=== PATIENT | female | born 1935 | race Caucasian/White ===

== ENCOUNTER → 2017-10-03 11:11 | Outpatient (CLI) | payer MEDICARE, BC, SELFPAY ==
--- NOTE | 2017-10-03 10:48 | DI.REPORT_ITS ---
SYMPTOM/DIAGNOSIS: B/L HIP PAIN BILATERAL HIPS: In the right hip there is moderate joint space narrowing. There is subchondral sclerosis and trae-articular spurring seen particularly in the femoral head. In the left hip there is mild joint space narrowing. The bones are intact. The bones do appear to be osteopenic. Mild degenerative changes are seen at the sacroiliac joints and in the lower lumbar spine. No acute fracture or dislocation is present. IMPRESSION: Degenerative changes of the hips bilaterally, right greater than left.
== END ==
PROVIDERS: PCP Internal Medicine; Visit Provider Physician Assistant
DX: M70.62 Trochanteric bursitis, left hip (principal); M25.552 Pain in left hip; M16.11 Unilateral primary osteoarthritis, right hip; M25.551 Pain in right hip
CPT/HCPCS: 73521; 20610; 99214; J1040

== ENCOUNTER → 2017-10-11 01:43 | Outpatient (CLI) | payer MEDICARE, BC, SELFPAY ==
[2017-10-11] MEDS: Omnipaque 300 MG/ML 10 ML BTL IJ (11:50)
[2017-10-11] MEDS: methylPREDNISolone ACETATE 80 MG/ML VIAL IM (11:50)
--- NOTE | 2017-10-11 11:51 | DI.REPORT_ITS ---
SYMPTOM/DIAGNOSIS: RT HIP INJECTION, PRIMARY OA RT HIP M16.11 RIGHT HIP: Fluoroscopy Time: 3 secs A needle is projected over the right hip in conjunction with a joint injection carried out by Dr. Allen. Please see the procedure report for further information.
--- NOTE | 2017-10-11 14:12 | PROC.BLANK_ITS ---
Date of Service: 10/11/17 Time of Service: 14:12 Note: OUTPATIENT PROCEDURE NOTE Date of Procedure: October 11, 2017 Procedure: Right Hip Injection under Fluoroscopy Indication for Procedure: Marilee has had persistent pain of the RIGHT hip and groin. Noninvasive measures have been tried. To serve as both diagnostic and therapeutic, an injection under fluoroscopy was recommended. I had discussed the risks of the procedure and the patient elected to proceed. Procedure Description: Thu was greeted in the flouroscopy room. The correct side was identified and the consent was reviewed with the patient and signed. The patient was then placed in the supine position on the fluoroscopy table. The RIGHT hip was then prepped with Chloraprep. The anterolateral injection starting point was identiifed by bony landmarks and fluoroscopy. The skin and soft tissue in the tract of the injection was anesthetized with 1% Lidocaine. A spinal needle was then inserted deep into the hip joint at the level of the lateral femoral neck under fluoroscopic guidance. A small amount of Omnipaque solution was injected to confirm intraarticular placement. Once confirmed, the hip was injected with 6cc of 0.5% Bupivicaine and 80mg of Depo- Medrol. A bandaid was placed on the injection site. The patient tolerated the procedure well and noted improvement in pre-injection pain.
== END ==
PROVIDERS: PCP Internal Medicine; Visit Provider Student in an Organized Health Care Education/Training Program
DX: M25.551 Pain in right hip (principal); M16.11 Unilateral primary osteoarthritis, right hip
CPT/HCPCS: 20610 ×3; 76000; 77002 ×3; J1040

== ENCOUNTER 2017-12-31 10:10 | Outpatient (CLI) | payer MEDICARE, BC, SELFPAY ==
--- NOTE | 2017-12-31 09:54 | DI.RAD_ITS ---
SYMPTOM/DIAGNOSIS: PRE RT ROBERTO, MAG MARKER RIGHT HIP: A single AP view was obtained. Comparison is made with 10/03/17. There is narrowing of the right hip joint space. There are subchondral cysts and osteophytes seen at the femoral head. Alignment of the hip is well maintained on this single frontal view. The soft tissues are unremarkable. IMPRESSION: Stable degenerative changes of the right hip.
== END 2017-12-31 10:30 ==
PROVIDERS: PCP Internal Medicine; Referring Provider Internal Medicine; Visit Provider Student in an Organized Health Care Education/Training Program
DX: M25.551 Pain in right hip (principal); M16.11 Unilateral primary osteoarthritis, right hip
CPT/HCPCS: 99213; 73501

== ENCOUNTER 2018-02-07 09:47 | Outpatient (CLI) | payer MEDICARE, BC, SELFPAY ==
[2018-02-07 11:48] LABS: HCT 42.9 % (36.0-46.0); HGB 14.7 g/dL (12.0-15.5); Mean Corp. HGB Concentration 34.3 g/dL (32.0-36.0); Mean Corpuscular Hemoglobin 31.5 pg (27.0-33.0); Mean Corpuscular Volume 92.1 fL (80-95); Mean Platelet Volume 10.6 fL (8.0-11.0); Platelet Count 185 x1000/uL (130-400); RBC 4.66 m/cumm (4.00-5.20); RBC Distribution Width 12.9 % (11.7-14.6); White Blood Cell Count 5.82 k/cumm (4.4-10.8)
[2018-02-07 11:51] LABS: Anion Gap 8.4 mmol/L (3-11); BUN 15 mg/dL (7-18); CO2 30.6 mmol/L (21.0-32.0); CREATININE 0.74 mg/dL (0.55-1.02); Calcium 9.4 mg/dL (8.5-10.1); Chloride 103 mmol/L (98-107); Glucose 71 mg/dL (70-100); Potassium 3.3 mmol/L (3.5-5.1); Sodium 142 mmol/L (136-145)
== END 2018-02-07 10:07 ==
PROVIDERS: PCP Internal Medicine; Visit Provider Student in an Organized Health Care Education/Training Program
DX: M25.551 Pain in right hip (principal); M16.11 Unilateral primary osteoarthritis, right hip; I10 Essential (primary) hypertension; Z01.818 Encounter for other preprocedural examination
CPT/HCPCS: 80048; 85027; 86850; 86900; 86901

== ENCOUNTER 2018-02-12 06:22 | Inpatient (IN) | payer MEDICARE, BC, SELFPAY ==
--- NOTE | 2018-02-07 14:50 | CMPROGNOTE_ITS ---
- If Service Date Differs Date of service: 02/07/18 Time of Service: 14:46 Care Management Progress Note ARMANDO met with Marilee for her preop appointment. Marilee states that she is having her (R) hip repaired on Sunday02/12/[address] Allen. Marilee resides in [place], she has two steps to enter her home, and then everything is one level. Marilee states that she has a FWW, Raised toilet, grab bars, and walking stick at this time. Marilee is independent at baseline, she drives, and manages ADL's. She is concerned about DC after surgery as she resides home alone. Marilee mentions a SNF or Swingbed prior to returning home. ARMANDO discusses Medicare payment and qualifying stays with Marilee which she understands. CM to meet with Dr. Allen in regards to the above.
[2018-02-12] VITALS (15 sets, daily range): BP systolic 91–148; BP diastolic 52–89; PULSE 37–89; RESP 11–18; TEMP 35.8–36.9; O2SAT 94–100
[2018-02-12] MEDS: Lactated Ringers 1,000 ML 80 ML IV ×3 (06:56→20:19)
[2018-02-12] MEDS: Celecoxib 200 MG CAP 400 MG PO (06:59)
[2018-02-12] MEDS: oxyCODONE-CR 10 MG TABCR PO (06:59)
[2018-02-12] MEDS: Acetaminophen 500 MG TAB 1000 MG PO ×3 (06:59→19:53)
[2018-02-12] MEDS: Bupivacaine 0.25% Pres-Free 30 ML VIAL (09:14)
[2018-02-12] MEDS: Ketorolac 30 MG/ML VIAL (09:14)
[2018-02-12] MEDS: Bupivacaine LIPOSOME/PF 133 MG/10 ML VIAL IJ (09:14)
[2018-02-12] MEDS: Normal Saline 50 ML (09:14)
--- NOTE | 2018-02-12 09:15 | DI.RAD_ITS ---
SYMPTOM/DIAGNOSIS: OSTEOARTHRITIS RIGHT HIP C-ARM FLUOROSCOPY: Fluoroscopy Time: 3.34 sec, 2.80 mGy. Fluoroscopy was provided in the OR for Dr. Allen. Hard copy image shows placement of a right hip prosthesis. Please see procedure note for details.
--- NOTE | 2018-02-12 10:02 | DI.RAD_ITS ---
SYMPTOM/DIAGNOSIS: S/P RT ROBERTO PORTABLE PELVIS: Patient is status post placement of a right hip prosthesis. The components appear well aligned.
--- NOTE | 2018-02-12 15:06 | PT.INNT ---
Date of service: 02/12/18 Time of Service: 15:06 PT Notes PHYSICAL THERAPY NOTE 02/12/18 PT consult received, chart reviewed, attempted to see patient for evaluation, pt lying in bed with emesis bag experiencing nausea. HOLD PT consult at this time, will see in am when nausea resolved. Pt has her own FWW in room, recommend nursing attempt edge of bed and standing this evening if patient is feeling better. Will complete PT Eval in am Marlys Phillips PT
--- NOTE | 2018-02-12 16:46 | W.PM.OP ---
Date of service: 02/12/18 Time of Service: 09:46 Operative Note DATE OF PROCEDURE: 02/12/18 PRE-OP DIAGNOSIS: Right Hip Osteoarthritis POST-OP DIAGNOSIS: same PROCEDURE: Right Anterior Total Hip Arthroplasty SURGEON: Thierry Allen HEALTH CONSULTANT: Gokul Brar ANESTHESIA: spinal ESTIMATED BLOOD LOSS: 300 PATHOLOGY: none sent COMPLICATIONS: None Patient was transported to: PACU Patient's condition: stable Implants: 1. Depuy [place] Acetabular Component, 54 mm 2. Depuy Acetabular Liner, 54 x 36 mm, +4 lateralized 3. Depuy Corail standard Collared femoral Stem, Size 15 4. Depuy Altrx Ceramic Femoral Head, Size 36+5 mm Indications: I have seen Marilee in clinic for symptoms of hip arthritis, confirmed with radiographic findings. She has exhausted nonoperative methods and was having significant limitations in daily function and desired better function and less pain. I discussed the technical details of a hip replacement. I explained the risks of the procedure to include, but not limited to, bleeding, infection, pain, stiffness, fracture, damage to nerves and vessels, damage to muscles and tendons, loosening, instability, leg length inequality, need for repeat procedure, blood clot and cardiopulmonary demise. Despite these risks, Marilee elected to proceed. Findings: There was significant signs of arthritis throughout the hip. Procedure Description: Marilee was greeted in the preoperative holding area where the correct side was identified and marked. The consent was reviewed with the patient and signed. The history and physical was updated. All questions were answered the was taken back to the operating room. A spinal anesthestic was then administered. The patient was placed into the supine position on the operating room table. The patient was then positioned onto the ARCH table. Both feet were wrapped with Webrill cotton wrap along with Coban. The feet were placed in specialized boots for the ARCH table, well seated within the boot and secured. SCDs were applied. The patient was then slid down onto a peroneal post and the nonoperative leg was secured in a leg calvert attached to the table. The operative side was placed into the ARCH table attachment and bed height and positioning was secured. A preoperative AP pelvis was obtained to serve as a reference for determining leg lengths. Prophylactic antibiotics in the form of cefazolin were administered. 1g of Tranxemic Acid was given intravenously within 30 minutes of incision. The right leg was then prepped with Chloraprep and draped in a standard fashion with a large shower-curtain type drape with Iodine impregnated skin protection. A timeout to confirm correct identity, side and site, procedure, allergies, anesthesia, and medical concerns was performed. An obliquely oriented incision was made starting lateral to the ASIS and running distal over the Tensor Fascia Gretchen (TFL) muscle belly toward the fibular head, approximately 10cm. The skin and soft tissue was dissected sharply, through Neo?s fascia, and to the fascia of the TFL. With the fascia and superior border of the IT band identified, the fascia was incised with a new knife just above any perforators from the IT band. The TFL muscle belly was bluntly dissected away from the fascia and moved laterally. The fat between TFL and rectus was identified to ensure the dissection was not within the TFL. Blunt dissection created space between abductors and the capsule and retractor was placed over the lateral femoral neck. The fibers of the rectus femoris tendon were identified and these were freed from the anterior capsule. A second cobra retractor was placed around the medial femoral neck. The TFL was further retracted laterally to show the deep fascia. Careful dissection through this layer identified three main crossing vessels of the lateral femoral circumflex. These were cauterized in multiple locations and then cut without any noticeable bleeding. The TFL was further released bluntly from the deep fascia to expose anterior hip capsule and fat the Jason orthopaedic retractor was then placed beneath the TFL and against sartorius and medial soft tissues to protect and retract the soft tissues. A T-capsulotomy was then performed starting at the superior lateral acetabulum and moving distally to the intertrochanteric ridge. These capsular flaps were tagged with a No. 1 Ethibond and elevated from within. The capsular flaps were released to the shoulder of the lateral neck and to the lesser trochanter to give excellent visualization of the proximal femur. A neck osteotomy was performed using an oscillating saw based on preoperative templates. This cut started in the shoulder and of the lateral neck and exited medially. The saw was at all times directed medially to avoid injury to the greater trochanter. 6cm of traction was applied to the leg and the osteotomy opened. The femoral head was removed with a corkscrew, making sure to protect the TFL on its exit. This was measured on the back table to determing the starting reamer size. Portions of the rectus obscuring visualization were minimally elevated off the superior acetabulum. An anterior retractor was placed over the anterior wall between capsule and labrum. A posterior retractor was placed similarly. This provided excellent visualization. The contents of the cotyloid fossa were removed with electrocautery and the labrum was removed with a knife. There was a notable floor osteophyte. Acetabular reaming began with a 49 mm reamer. This first reaming was directed anterior to posterior and medial to get down to the true floor. This was inspected and reamed until the true floor was reached. I then reamed sequentially up to a 53 mm reamer where good fit was obtained. The larger reamers were oriented based on anatomical reference of the anterior and lateral ovalle to ensure proper abduction and anteversion. Positioning and size was confirmed with the fluoroscopy. A 54 mm Depuy [place] acetabular component was selected. The acetabulum was reamed around the periphery with the selected acetabular size to prevent a rim fit. The deep tissues were irrigated. The acetabular component was then impacted in a position of about 40-45 degrees of abduction and 15-20 degrees of anteversion, using the patient?s anatomy as the ultimate landmark. Fluoroscopy was used to confirm this. There was excellent cardiac exercise physiologist of the acetabular component and the inserting handle was removed. The acetabular liner, Depuy 54 x 36 mm +4 lateralized polyethylene liner, was inserted and lined up with the tines of the acetabular component. There was no soft tissue interposition. The liner was then impacted into position and confirmed to be well-seated. A portion of the trae-articular cocktail was then injected around the acetabulum into the capsule and periosteum. This cocktail consisted of 50cc of 0.25% Bupivicaine and 20cc of Exparel, expanded to a total of 120cc. Traction was released from the femur. The leg was rotated to 120 degrees. Any remaining medial capsule was released until the lesser trochanter was easily palpable. A Hall retractor was placed medially. The lateral capsule was further released into the shoulder to allow access to the greater trochanter. A Hall retractor was placed over the greater trochanter which allowed the trochanter to flip in front of the capsule for excellent exposure. The leg was brought down into maximal extension and 20 degrees of adduction while ensuring there was no impingement on the acetabulum. Any remnant capsule within the trochanter was released. Piriformis and obturator externis were identified and protected. There was excellent access to the proximal femur. The lateral neck remnant was removed with a rongeur. A blunt canal probe was used to identify the canal and trajectory for later broaching. A box osteotome initiated the broach course. A small curved rasp and a curved curette were used to work laterally. Broaching then began with a size 8 Corail broach. This was inserted manually around the trochanter and into the canal before mallet blows. The broach was seated to a few millimeters below the cut level based on the neck cut and the preoperative template. Sequential broaching was continued until a tight fit was obtained with good rotational control of the femur. A trial standard neck was inserted along with a +5 trial head. The leg was brought out of extension and adduction and then reduced with traction and internal rotation. The leg was stable anteriorly in a position of 30 degrees of extension and 90 degrees of external rotation. Fluoroscopy was used to ensure there was no fracture and the stem was seated well. Leg lengths were checked with an AP pelvis and pelvic reference points. Once content with the desired offset and leg lengths, the leg was brought back into extension, external rotation and adduction. The periosteum and surrounding tissue was injected with remaining portion of the trae-articular cocktail. The proximal femur was irrigated as well as the deep tissues. The Depuy Corail standard collared stem, size 15, was then manually inserted into the proximal femur making sure to control rotation. It was then malleted into position with light blows, giving breaks to allow bone expansion and decrease risk of fracture. The selected Depuy in, size 36+5 mm, was then placed onto the clean and dry trunnion and secured with impaction onto the tapered fit. The leg was brought back out of extension and adduction and reduced with traction and internal rotation. Stability was confirmed with no shuck at 90 degrees of external rotation and 30 degrees of extension. No impingement through range of motion arc. Final x-ray images were obtained with fluoroscopy to confirm adequate positioning and no intraoperative fracture. The deep tissues were thoroughly irrigated with a pulse lavage. The second dose of TXA 1g was administered intravenously. The TFL fascia was finally closed with a No. 2 Stratafix, barbed suture. Deep tissues were then reapproximated with 0 Vicryl and a running 2-0 Vicryl. The skin was closed with a running 4-0 Monocryl in a subcuticular fashion. This was reinforced with skin glue. A Mepilex silver dressing was applied. At the end of the case, all counts were correct. Marilee was transferred to the hospital bed without difficulty and suffering no apparent complication. Marilee has a good prognosis. Physical therapy will start today and without restrictions, weight-bearing as tolerated. Aspirin 81mg BID will be used for DVT prophylaxis.
[2018-02-12] MEDS: Celecoxib 100 MG CAP 200 MG PO (19:53)
[2018-02-12] MEDS: Aspirin E.C. 325 MG TABEC 81 MG PO (20:07)
[2018-02-12] MEDS: traMADol 50 MG TAB PO (22:58)
[2018-02-12] MEDS: Normal Saline Flush 10 ML SYR IV (23:15)
[2018-02-12] MEDS: Ondansetron 4 MG/2 ML VIAL IVP (23:15)
[2018-02-13] VITALS (7 sets, daily range): BP systolic 111–131; BP diastolic 60–79; PULSE 69–89; RESP 16–18; TEMP 35.4–37.1; O2SAT 94–97
[2018-02-13 07:19] LABS: HCT 32.9 % (36.0-46.0); HGB 11.4 g/dL (12.0-15.5); Mean Corp. HGB Concentration 34.7 g/dL (32.0-36.0); Mean Corpuscular Hemoglobin 31.6 pg (27.0-33.0); Mean Corpuscular Volume 91.1 fL (80-95); Mean Platelet Volume 11.2 fL (8.0-11.0); Platelet Count 158 x1000/uL (130-400); RBC 3.61 m/cumm (4.00-5.20); RBC Distribution Width 12.4 % (11.7-14.6); White Blood Cell Count 8.41 k/cumm (4.4-10.8)
[2018-02-13 07:27] LABS: BUN 18 mg/dL (7-18); CREATININE 0.78 mg/dL (0.55-1.02); Calcium 8.5 mg/dL (8.5-10.1); Chloride 104 mmol/L (98-107); Glucose 118 mg/dL (70-100); Potassium 3.5 mmol/L (3.5-5.1); Sodium 140 mmol/L (136-145)
[2018-02-13] MEDS: Pantoprazole 40 MG TABCR PO (08:19)
[2018-02-13] MEDS: Chlorthalidone 25 MG TAB 12.5 MG PO (08:19)
[2018-02-13] MEDS: Multivitamin w/Minerals TAB 1 TAB PO (08:19)
[2018-02-13] MEDS: Celecoxib 100 MG CAP 200 MG PO (08:19)
[2018-02-13] MEDS: Aspirin E.C. 81 MG TABEC PO ×2 (08:20→19:50)
[2018-02-13] MEDS: Ondansetron 4 MG/2 ML VIAL IVP (08:20)
[2018-02-13] MEDS: traMADol 50 MG TAB PO (08:20)
[2018-02-13] MEDS: Acetaminophen 500 MG TAB 1000 MG PO ×3 (08:20→19:49)
[2018-02-13] MEDS: Ascorbic Acid 500 MG TAB PO (08:20)
--- NOTE | 2018-02-13 08:22 | PT.INIE ---
Date of service: 02/13/18 Time of Service: 08:16 PT Notes Inpatient Physical Therapy Evaluation Date: 02/13/18 Referring Doctor: Thierry Allen PT Orders: PT CONSULT: s/p anterior right right ROBERTO Precautions: WBAT RLE Patient Profile/Admitting Diagnosis: Patient is an 82-year-old female as/P right total hip arthroplasty by Dr. Allen 02/12/2018 PMHX: Osteoarthritis right hip, right total knee arthroplasty, hypertension, cataract extraction Social History/Home Situation: Lives alone in a house, 2 steps to enter, single level and side. Baseline mobility independent gait without assistive device and independent with ADLs. Equipment Owned/DME: Walking stick, FWW, raised toilet seat, grab bars, seat maker Subjective: Patient lying in bed, states she still feels nauseous this morning, spoke with RN she is going to provide her Zofran, patient's blood pressure stable. RN cleared for patient to mobilize this morning with PT. Patient very anxious and worried about her surgery, worried about how she is going to manage at home, I discussed with patient recommending OT consult to address concerns regarding ADLs and self-care and home setting. Patient agreeable to PT consult with encouragement to mobilize. Objective: Mental Status: A and O x3 Pain: Complains of pain right anterior quad, not rated, RN notified. Bed Mobility/Transfers: Supine to sit: HOB 30 degrees, independent Sit to stand: SBA with FWW Bed to chair: SBA with FWW, cues for hand placement and positioning Chair to bed: CGA with FWW, patient unable to sit in chair for breakfast due to onset of dizziness, nausea after gait training. Transfer back to bed. RN notified. Sit to supine: HOB flat, independent Gait: CGA with FWW 50 feet x2, WBAT RLE, slow steady step through gait pattern with decreased stride length, decreased tu, cues to stand closer to front wheel walker and use upper body support to unload lower extremities. Patient mobilizing well with gait, continues to have anxiety during gait session about pain and how she is going to manage at home, patient provided with positive encouragement regarding mobility. Therex: Initiated ankle pumps x20 reps, will continue to instruct in ROBERTO home exercise program over the next few sessions. Balance: Static Sitting: Normal Dynamic Sitting: Normal Static Standing: Fair Dynamic Standing: Fair Special Tests: Mobility Limitations Standardized Measure [facility] AM-PAC 6 clicks Basic Mobility Inpatient Short Form: Raw Score: 18 standardized Score: 43.63 CMS Score: 46.58% CMS Modifier: CK Informed Consent/Education: Patient instructed in purpose of PT consult and plan of care. Assessment: Patient is an 82-year-old female as/P right total hip arthroplasty by Dr. Allen 02/12/2018 in setting of Osteoarthritis right hip, right total knee arthroplasty. Patient presents with clinical signs and symptoms consistent with postop right ROBERTO, as demonstrated by the following impairment level findings: Pain right hip and lower extremity, weakness right hip musculature, decreased strength with standing transfers and gait mobility requiring use of FWW for stability to prevent falls, decreased static and dynamic standing balance. Patient session this morning limited by dizziness and nausea upon completion of gait training, patient unable to sit in chair for breakfast, but was able to mobilize in hallway with FWW. Patient has a lot of anxiety regarding her surgery and postoperative recovery, which may be interfering in her ability to focus on mobility. Patient will benefit from OT consult for instruction in ADLs and assist with strategizing self-care in home setting. Patient may benefit from referral to long-term care facility for rehab, if she feels unsafe to return to home alone. Impairments are contributing to the following functional limitations: AMPAC score CMS Score: 46.58% Patient is assessed as a Moderate [id number] complexity based on the following: History: See above Examination: See above Presentation: Evolving Decision Making: AMPAC score CMS Score: 46.58% Goals: Goals X1 week 1. Supine-Sit: Independent 2. Sit-Supine: Independent 3. Sit-Stand: Supervision with FW W 4. Stand-Sit: Supervision 5. Bed-Chair: SBA with FW W 6. Chair-Bed: SBA with FW W 7. Gait: SBA with FW W 100 feet x2, WBAT RLE 8. Stairs: Up/down 2 steps with railing, SBA, WBAT RLE 9. Independent with home exercise program for ROBERTO Plan of Care/Treatment Plan: 1-2x/day, 7 days/week x 1 week. Plan of care has been reviewed with the COPPER PLATER providing the service under Physical Therapy direction. Initiate Physical Therapy intervention for strengthening, bed mobility, transfers, gait, stairs, balance training, use of assistive device. DISCHARGE RECOMMENDATIONS: Long-term care facility for rehab TREATMENT CODE/TIME: 32 minutes IE 8:15 AM G Codes in the area mobility of walking and moving around: current status [id number] -CK; projected status GP [id number]. Discharge status (if discharging) GP [id number] CK based on AMPA score CMS Score: 46.58% Marlys Phillips PT Disclaimer: This note was created using Fnbox voice recognition software. It was reviewed for major content. However, there may be multiple small discrepancies and errors due to the voice recognition aspects of the software.
[2018-02-13] MEDS: Normal Saline Flush 10 ML SYR IV ×3 (08:23→19:50)
--- NOTE | 2018-02-13 08:25 | IN_ITS ---
Date of service: 02/13/18 Time of Service: 08:16 PT Notes Inpatient Physical Therapy Evaluation Date: 02/13/18 Referring Doctor: Thierry Allen PT Orders: PT CONSULT: s/p anterior right right ROBERTO Precautions: WBAT RLE Patient Profile/Admitting Diagnosis: Patient is an 82-year-old female as/P right total hip arthroplasty by Dr. Allen 02/12/2018 PMHX: Osteoarthritis right hip, right total knee arthroplasty, hypertension, cataract extraction Social History/Home Situation: Lives alone in a house, 2 steps to enter, single level and side. Baseline mobility independent gait without assistive device and independent with ADLs. Equipment Owned/DME: Walking stick, FWW, raised toilet seat, grab bars, data analyst report writer Subjective: Patient lying in bed, states she still feels nauseous this morning, spoke with RN she is going to provide her Zofran, patient's blood pressure stable. RN cleared for patient to mobilize this morning with PT. Patient very anxious and worried about her surgery, worried about how she is going to manage at home, I discussed with patient recommending OT consult to address concerns regarding ADLs and self-care and home setting. Patient agreeable to PT consult with encouragement to mobilize. Objective: Mental Status: A and O x3 Pain: Complains of pain right anterior quad, not rated, RN notified. Bed Mobility/Transfers: Supine to sit: HOB 30 degrees, independent Sit to stand: SBA with FWW Bed to chair: SBA with FWW, cues for hand placement and positioning Chair to bed: CGA with FWW, patient unable to sit in chair for breakfast due to onset of dizziness, nausea after gait training. Transfer back to bed. RN notified. Sit to supine: HOB flat, independent Gait: CGA with FWW 50 feet x2, WBAT RLE, slow steady step through gait pattern with decreased stride length, decreased tu, cues to stand closer to front wheel walker and use upper body support to unload lower extremities. Patient mobilizing well with gait, continues to have anxiety during gait session about pain and how she is going to manage at home, patient provided with positive encouragement regarding mobility. Therex: Initiated ankle pumps x20 reps, will continue to instruct in ROBERTO home exercise program over the next few sessions. Balance: Static Sitting: Normal Dynamic Sitting: Normal Static Standing: Fair Dynamic Standing: Fair Special Tests: Mobility Limitations Standardized Measure [facility] AM-PAC 6 clicks Basic Mobility Inpatient Short Form: Raw Score: 18 standardized Score: 43.63 CMS Score: 46.58% CMS Modifier: CK Informed Consent/Education: Patient instructed in purpose of PT consult and plan of care. Assessment: Patient is an 82-year-old female as/P right total hip arthroplasty by Dr. Allen 02/12/2018 in setting of Osteoarthritis right hip, right total knee arthroplasty. Patient presents with clinical signs and symptoms consistent with postop right ROBERTO, as demonstrated by the following impairment level findings: Pain right hip and lower extremity, weakness right hip musculature, decreased strength with standing transfers and gait mobility requiring use of FWW for stability to prevent falls, decreased static and dynamic standing balance. Patient session this morning limited by dizziness and nausea upon completion of gait training, patient unable to sit in chair for breakfast, but was able to mobilize in hallway with FWW. Patient has a lot of anxiety regarding her surgery and postoperative recovery, which may be interfering in her ability to focus on mobility. Patient will benefit from OT consult for instruction in ADLs and assist with strategizing self-care in home setting. Patient may benefit from referral to long-term care facility for rehab, if she feels unsafe to return to home alone. Impairments are contributing to the following functional limitations: AMPAC score CMS Score: 46.58% Patient is assessed as a Moderate 36733 complexity based on the following: History: See above Examination: See above Presentation: Evolving Decision Making: AMPAC score CMS Score: 46.58% Goals: Goals X1 week 1. Supine-Sit: Independent 2. Sit-Supine: Independent 3. Sit-Stand: Supervision with FW W 4. Stand-Sit: Supervision 5. Bed-Chair: SBA with FW W 6. Chair-Bed: SBA with FW W 7. Gait: SBA with FW W 100 feet x2, WBAT RLE 8. Stairs: Up/down 2 steps with railing, SBA, WBAT RLE 9. Independent with home exercise program for ROBERTO Plan of Care/Treatment Plan: 1-2x/day, 7 days/week x 1 week. Plan of care has been reviewed with the BROTHEL KEEPER providing the service under Physical Therapy direction. Initiate Physical Therapy intervention for strengthening, bed mobility, transfers, gait, stairs, balance training, use of assistive device. DISCHARGE RECOMMENDATIONS: Long-term care facility for rehab TREATMENT CODE/TIME: 32 minutes IE 8:15 AM G Codes in the area mobility of walking and moving around: current status [id number] -CK; projected status GP [id number]. Discharge status (if discharging) GP [id number] CK based on AMPA score CMS Score: 46.58% Marlys Phillips PT Disclaimer: This note was created using [employer] voice recognition software. It was reviewed for major content. However, there may be multiple small discrepancies and errors due to the voice recognition aspects of the software.
--- NOTE | 2018-02-13 11:24 | PHARADMIT ---
Admission Pharmacy Clinical Review Right Anterior Total Hip Arthroplasty Code Status Full Code Current Weight 61.9 kg Renally Cleared and Narrow Therapeutic Index Meds crcl ~55ml/min QTc Value / Action Taken 430 BP Control, Fever 121/72 afebrile Electrolytes reviewed ok DVT Prophylaxis not yet Opiate Usage / Scheduled Bowel Regimen Ordered prn/prn Plt/SCr for Heparin / Enoxaparin 158/0.78 INR for Warfarin na H/H stable, WBC/Bands 11.4/32.9 wbc 8.41 Antibiotic appropriateness na Cultures and Sensitivities na Surgical ABX d/c within 24 hr yes DM control / Insulin Dosing na Heart Failure (Check EF%) (CORINNA's, B-Block, Diuretics) na IV to PO Switch iv pain meds, Home Meds Reviewed Home Meds Not Ordered naproxen sodium [Aleve] 220 mg PO PRN Comments
--- NOTE | 2018-02-13 12:52 | PDOC.CMIN ---
- If Service Date Differs Date of service: 02/13/18 Time of Service: 12:52 Care Management Initial Assess REASON FOR HOSPITALIZATION:: (R) Hip DJD PAST MEDICAL HISTORY/PAST SURGICAL HISTORY:: CVA, Chronic low back pain, Essential Hypertension, Hyperlipidemia, Imbalance, [facility], Raynaud's syndrome PREVIOUS FUNCTIONAL STATUS/SOCIAL/FAMILY SUPPORTS:: Marilee resides alone in [place]. She states that at baseline she has no assistance at home. Marilee has no family locally, she states that she depends on her neighbors for assistance at times, however states that she does not want to be a burden on them. CURRENT FUNCTIONAL STATUS:: Currently Marilee is sitting up in her chair. She is stating that she is nervous and feeling nauseous today, which staff mine warfare officer is aware of. ADVANCE DIRECTIVES:: On file - Noe Roberto - agent, Joshua Crain - alternate agent Has patient been provided with information about the portal?: Yes Did the patient sign up for the portal?: No CODE STATUS:: Full Code INSURANCE COVERAGE / FINANCIAL ISSUES:: Medicare, BCBS CURRENT HOME/COMMUNITY SERVICES/EQUIPMENT:: Currently Marilee has a FWW, Raised toilet, grab bars, and walking stick at home. She has no services in the community. PRIMARY CARE PHYSICIAN:: Dr. Ivan POTENTIAL DISCHARGE NEEDS:: F/U appointment with Dr. Allen. ? SNF placement - depending on mobility - may be able to return home. ? home health services PATIENT/FAMILY EDUCATION NEEDS:: Review DC instructions, any limitations, and ongoing DC planning discussion. Discuss 'Ask Me Three' ANTICIPATED BARRIERS TO DISCHARGE:: None identified at this time. TRANSPORTATION:: Via RCT or with neighbor PLAN:: Marilee will ? DC to SNF vs. home with home health services. She will F/U with Dr. Allen and plan of care as prescribed. RCT or neighbor to transport when ready.
--- NOTE | 2018-02-13 13:04 | W.PM.PROGNOT ---
Date of Service Date of service: 02/13/18 Time of Service: 13:04 Assessment and Plan (1) Primary osteoarthritis of right hip: Current visit: No Status: Acute Marilee is status post right hip replacement. Unfortunately, she is having issues with nausea and dizziness. At this point, this is going to limit her ability to discharge. We will continue with regular medications except that I will change her Celebrex to ketorolac hopefully to limit any GI upset. In addition, I will start her on some Valium for pain control and also for antianxiety as anxiety seems to be a large component of her current complaints. We will continue with physical therapy and continue with the aspirin for DVT prophylaxis. Subjective Interval history since last seen: Hertha status post right hip replacement. Unfortunately, she has had significant amounts of nausea with some subjective dizziness. Her vital signs been stable. Her hemoglobin is stable as well. She does express some anxiety and some pain about the right hip although she is taking no pain medications and does not describe as being sharp. She has been able to ambulate although does so cautiously. She denies numbness or tingling. She denies fevers or chills. Exam Narrative Exam Narrative: No acute distress. Alert oriented x3. Evaluation of the right hip shows no drainage on the dressings. There is some mild amount of ecchymosis seen medial to the incision. No significant swelling or hematoma. She tolerates internal and external rotation without any significant difficulty. Leg lengths appear equal. Objective Objective Clinical Data: Abnormal lab results 02/13/18 02/13/18 Range/Units 06:25 06:25 RBC 3.61 L (4.00-5.20) m/cumm Hgb 11.4 L (12.0-15.5) g/dL Hct 32.9 L (36.0-46.0) % MPV 11.2 H (8.0-11.0) fL Glucose 118 H (70-100) mg/dL Vital Signs Temperature 36.7 C 02/13/18 11:40 Temperature Source Tympanic 02/13/18 11:40 Pulse 80 02/13/18 11:40 Pulse Rhythm Regular 02/13/18 08:10 Respiratory Rate 16 02/13/18 11:40 Respiratory Effort Non-Labored 02/13/18 08:10 Respiratory Depth Normal 02/13/18 08:10 Respiratory Pattern Normal 02/13/18 08:10 Blood Pressure 131/79 02/13/18 11:40 Pulse Oximetry 97 02/13/18 11:40 Respiratory End-tidal CO2 32 02/12/18 10:50 Oxygen Delivery Method Room Air 02/13/18 11:40 Oxygen Flow Rate 0 02/13/18 11:40 Pain Level 2 02/13/18 11:40 Comment 02/13/18 11:40 Intake & Output 02/12/18 02/13/18 02/13/18 23:59 11:59 23:59 Intake Total 487.416 / 691.294 6212 / 1552 Output Total 200 / 200 650 / 650 Balance 287.416 / 287.416 902 / 902 Intake: IV 247.416 / 247.416 712 / 712 Oral 240 / 240 840 / 840 Output: Urine 200 / 200 650 / 650 Other: Urine Color Dark Mary Yellow Urine Appearance Clear Clear Urine Odor Normal Comment no redness or pain noted at the uretha, draining properly Voiding Methods Toilet Laboratory Results WBC 8.41 k/cumm (4.4-10.8) 02/13/18 06:25 RBC 3.61 m/cumm (4.00-5.20) L 02/13/18 06:25 Hgb 11.4 g/dL (12.0-15.5) L 02/13/18 06:25 Hct 32.9 % (36.0-46.0) L 02/13/18 06:25 MCV 91.1 fL (80-95) 02/13/18 06:25 MCH 31.6 pg (27.0-33.0) 02/13/18 06:25 MCHC 34.7 g/dL (32.0-36.0) 02/13/18 06:25 RDW 12.4 % (11.7-14.6) 02/13/18 06:25 Plt Count 158 x1000/uL (130-400) 02/13/18 06:25 MPV 11.2 fL (8.0-11.0) H 02/13/18 06:25 Sodium 140 mmol/L (136-145) 02/13/18 06:25 Potassium 3.5 mmol/L (3.5-5.1) 02/13/18 06:25 Chloride 104 mmol/L (98-107) 02/13/18 06:25 Carbon Dioxide 31.0 mmol/L (21.0-32.0) 02/13/18 06:25 Anion Gap 5.0 mmol/L (3-11) 02/13/18 06:25 BUN 18 mg/dL (7-18) 02/13/18 06:25 Creatinine 0.78 mg/dL (0.55-1.02) 02/13/18 06:25 Estimated GFR/1.73 m2 >= 60.00 (mL/min/1.73m2) 02/13/18 06:25 Glucose 118 mg/dL (70-100) H 02/13/18 06:25 Calcium 8.5 mg/dL (8.5-10.1) 02/13/18 06:25
--- NOTE | 2018-02-13 13:12 | INITIAL_ITS ---
- If Service Date Differs Date of service: 02/13/18 Time of Service: 12:52 Care Management Initial Assess REASON FOR HOSPITALIZATION:: (R) Hip DJD PAST MEDICAL HISTORY/PAST SURGICAL HISTORY:: CVA, Chronic low back pain, Essential Hypertension, Hyperlipidemia, Imbalance, [facility], Raynaud's syndrome PREVIOUS FUNCTIONAL STATUS/SOCIAL/FAMILY SUPPORTS:: Marilee resides alone in [place]. She states that at baseline she has no assistance at home. Marilee has no family locally, she states that she depends on her neighbors for assistance at times, however states that she does not want to be a burden on them. CURRENT FUNCTIONAL STATUS:: Currently Marilee is sitting up in her chair. She is stating that she is nervous and feeling nauseous today, which staff genetic counselor is aware of. ADVANCE DIRECTIVES:: On file - Noe Roberto - agent, Joshua Crain - alternate agent Has patient been provided with information about the portal?: Yes Did the patient sign up for the portal?: No CODE STATUS:: Full Code INSURANCE COVERAGE / FINANCIAL ISSUES:: Medicare, BCBS CURRENT HOME/COMMUNITY SERVICES/EQUIPMENT:: Currently Marilee has a FWW, Raised toilet, grab bars, and walking stick at home. She has no services in the community. PRIMARY CARE PHYSICIAN:: Dr. Ivan POTENTIAL DISCHARGE NEEDS:: F/U appointment with Dr. Allen. ? SNF placement - depending on mobility - may be able to return home. ? home health services PATIENT/FAMILY EDUCATION NEEDS:: Review DC instructions, any limitations, and ongoing DC planning discussion. Discuss 'Ask Me Three' ANTICIPATED BARRIERS TO DISCHARGE:: None identified at this time. TRANSPORTATION:: Via RCT or with neighbor PLAN:: Marilee will ? DC to SNF vs. home with home health services. She will F/U with Dr. Allen and plan of care as prescribed. RCT or neighbor to transport when ready.
--- NOTE | 2018-02-13 13:12 | PT.INTREAT ---
Date of service: 02/13/18 Time of Service: 13:12 PT Notes Inpatient Physical Therapy Treatment Note Date: 02/13/18 PRECAUTIONS: WBAT on R SUBJECTIVE: Marilee states that she is feeling better than she was this morning. She continues to express anxiety regarding pain and level of function. OBJECTIVE: PAIN: Patient c/o R hip pain with ther ex BED MOBILITY/TRANSFERS Supine-sit: I with HOB flat Sit-stand: S Stand-sit: S GAIT Assistive Device: FWW Weight bearing: WBAT on R Assist: SBA Distance: 60' x2 Deviation: Step-though pattern, c/o dizziness and nausea THEREX: Patient completed a LE strengthening and stabilization program, as per flow sheet. ASSESSMENT: Patient tolerated session well, although gait distance was limited due to onset of dizziness and nausea, likely related to aniety. She would benefit from continued gait training and strengthening for improved mobility. PLAN: Continue with PT's POC TREATMENT CODE/TIME: 25 minutes; TA/TP
[2018-02-13] MEDS: Ketorolac 15 MG/ML VIAL IVP ×2 (14:23→19:50)
[2018-02-13] MEDS: Diazepam 2 MG TAB PO (20:58)
[2018-02-14] MEDS: Normal Saline Flush 10 ML SYR IV ×2 (03:11→08:14)
[2018-02-14] MEDS: Ketorolac 15 MG/ML VIAL IVP ×2 (03:11→08:14)
[2018-02-14 03:19] VITALS: BP 131/81; PULSE 82; RESP 16; TEMP 36; O2SAT 96
[2018-02-14 08:00] VITALS: BP 120/78; PULSE 79; RESP 18; TEMP 36.3; O2SAT 96
[2018-02-14] MEDS: Acetaminophen 500 MG TAB 1000 MG PO (08:14)
[2018-02-14] MEDS: Ascorbic Acid 500 MG TAB PO (08:14)
[2018-02-14] MEDS: Pantoprazole 40 MG TABCR PO (08:14)
[2018-02-14] MEDS: Chlorthalidone 25 MG TAB 12.5 MG PO (08:14)
[2018-02-14] MEDS: Aspirin E.C. 81 MG TABEC PO (08:14)
[2018-02-14] MEDS: Multivitamin w/Minerals TAB 1 TAB PO (08:14)
--- NOTE | 2018-02-14 09:32 | PT.INTREAT ---
Date of service: 02/14/18 Time of Service: 09:32 PT Notes Inpatient Physical Therapy Treatment Note Date: 02/14/18 PRECAUTIONS: WBAT on R SUBJECTIVE: Marilee states that she continues to have pain in the R hip with walking, however, she does state that she is feeling better and hasn't had any nausea or dizziness today. OBJECTIVE: PAIN: Patient c/o R hip discomfort with gait training and ther ex BED MOBILITY/TRANSFERS Sit-stand: I Stand-sit: I GAIT Assistive Device: FWW Weight bearing: WBAT on R Assist: S Distance: 125' x2 Deviation: Step-through THEREX: Patient completed a LE strengthening program, as per flow sheet. STAIRS: Up/down 3x4 and 2x6 using B rails and a step-to pattern with supervision. ASSESSMENT: Patient tolerated session well with minimal c/o discomfort in R hip with gait training and ther ex. Patient tolerated a progression in gait distance with FWW support and a step-through gait pattern. PLAN: Continue with PT's POC TREATMENT CODE/TIME: 30 minutes; TA/TP
--- NOTE | 2018-02-14 11:05 | DSE_ITS ---
Date of service: 02/14/18 Time of Service: 11:05 DS: Diagnosis Discharge Diagnosis (1) Primary osteoarthritis of right hip: Status: Acute Discharge Plan Disposition Patient Disposition: HOME W/HOME HEALTH SERVICE Condition: Good Discharge Details Reason For Visit: (R) HIP DJD Admit Date/Time: 02/12/18 06:22 Admit Provider: Thierry Allen Attending Provider: Thierry Allen Primary Care Provider: Katina Ivan Hospital Course Hospital Course: Patient was admitted to the medical/surgical floor following the procedure. It was tolerated well without any notable medical, surgical, or anesthetic complications. Mobilization began postoperatively. The peterson catheter was removed and voiding spontaneously. Vitals were stable. She did have some complaints of nausea and dizziness. He did not seem to be related to vital signs normal orthostatics. It did resolve with time more than anything else. Physical therapy worked with the patient and was cleared for discharge home. No acute medical issues. Home Meds and New Rx's Prescriptions: New aspirin 81 mg Tablet,Delayed Release (Dr/Ec) 81 mg PO BID Qty: 80 RF: 0 diazepam 2 mg Tablet 2 mg PO TID PRN PRNQty: 7 RF: 0 docusate sodium [Colace] 100 mg Capsule 100 mg PO BID PRN PRN (Reason: Constipation) Qty: 0 RF: 0 celecoxib 200 mg capsule 200 mg PO BID PRN (Reason: pain) Qty: 60 RF: 1 pantoprazole 40 mg tablet,delayed release (DR/EC) 40 mg PO DAILY Qty: 30 RF: 0 acetaminophen 500 mg capsule 1,000 mg PO Q8H PRN (Reason: pain) Qty: 90 RF: 0 Continued ascorbic acid (vitamin C) [Vitamin C] 500 MG capsule, extended release 500 mg PO DAILY RF: 0 hxnzuoxmmgyg-Za-cosy-minerals [Women's Daily Multivitamin] 1 EACH tablet 1 ea PO DAILY RF: 0 chlorthalidone 25 MG tablet 12.5 mg PO DAILY Qty: 45 RF: 3 Varicella-Zoster Ge/As01b/Pf [Shingrix Vial Kit] 50 MCG INJ 50 mcg IM ONCE Qty: 1 RF: 1 Discontinued naproxen sodium [Aleve] 220 MG capsule 220 mg PO PRN RF: 0 Discharge Instructions Additional Instructions: Dr. Allen?s Total Hip Discharge Instructions Activity: The most important activity is to walk. You should try to take short walks a few times a day. You have no restrictions on movement or positioning, but do not try to force what you do. You will find some stiffness and weakness with hip flexion (lifting your knee). Do not try to strengthen this too early, continue to practice walking and stairs and this will come. - Outpatient physical therapy can be helpful to help return you to a normal gait and improve your flexibility and strength. This can start around 2 weeks. For some patients, it?s not necessary. Usually this is determined at the time of discharge or at the first post-operative visit. - You should wear the BENJI hose on both legs for 4 weeks. Dressing: Keep the surgical dressing in place for at least one week. After the first week it may be removed and replace with light gauze and tape or nothing. It may get wet after 3 days but avoid soaking the dressing. If it gets wet, just lightly pat dry. It is important to always keep some gauze between skin folds, especially when you are sitting. Spend some time with the wound exposed when you are lying flat as the incision does wrinkle onto itself. Medications: - You should take Tylenol and an anti-inflammatory Celebrex as your primary pain control medications. If the Celebrex is not covered by your insurance provider you may use Aleve, 1-2 tablets, twice daily - You have been prescribed a stronger pain medication Diazepam (Valium) for breakthrough pain and spasms. This is not a true narcotic pain medication and does work with some anxiety and seem to work well for your pain and spasms. It may cause drowsiness. Take as needed as prescribed. - You have also been prescribed a stomach acid reduction agent Pantoprozole to help reduce stomach acid and reflux. - You will be taking aspirin 81mg twice a day for DVT prevention unless instructed otherwise. - If you have constipation you should take Colace or Miralax (both wbiu-ydh-gegqgyg). It takes most people 3-4 days to have a bowel movement. Follow-up: 2 weeks 1. Encounter Date and Reason I certify that NAZARIO VILLALBA was seen by Thierry Allen on 02/14/18 and that I had a tjqy-ti-[id number] encounter with this patient that meets the physician face to face encounter requirements. 2. Clinical Findings Supporting Skilled Need and Homebound Status I certify that home health services are medically necessary, include either intermittent [place] [facility] and/or physical/speech therapy, and that this patient is homebound in that absences from the home require considerable and taxing effort and are infrequent or of short duration, or are attributable to the need to receive medical care. [X] (a) Attached documentation from encounter provides clinical findings supporting skilled need and homebound status (including what assistance patient requires to leave the home). The encounter with the patient was in whole, or in part, for the following medical condition, which is the primary reason for home health care: (R) HIP DJD Usp: Physical Therapy: Nazario would benefit from home physical and director private music therapy agency [facility] to address her current limitations and weaknesses. She is status post hip replacement on the right side from an anterior approach. She has no precautions. She does have significant weakness and gait abnormalities. Physical therapy should focus on ambulation, using assistive devices as needed, strengthening. Range of motion should be secondary. Occupational therapy may assist with activities of daily living as she lives by herself independently. Speech Therapy: Homebound: Nazario is unable to leave her home unassisted. She has significant weakness and gait abnormalities which preclude her from leaving her home. 3. Certification and Authentication I certify that I composed the above information based on my clinical judgement relating to this patient's medical condition and, if applicable, clinical findings communicated to me by the NPP or inpatient physician who performed the Home Health Referral. All further orders will be obtained through Dr. Thierry Allen Referrals: Thierry Allen MD [ [facility] STAFF PHYSICIAN] - Activity:: Activity as Tolerated Equipment/Supplies:: No Equipment Needed Diet:: As Tolerated Discharge Orders Discharge Orders: Discharge Order (Routine); Ordered 02/14/18 Ordered By: Thierry Allen DS: Data Vitals/I&O Vitals and I&O: Vital Signs Temperature 36.3 C L 02/14/18 08:00 Temperature Source Tympanic 02/14/18 08:00 Pulse 79 02/14/18 08:00 Pulse Rhythm Regular 02/14/18 08:00 Respiratory Rate 18 02/14/18 08:00 Respiratory Effort Non-Labored 02/14/18 08:00 Respiratory Depth Normal 02/14/18 08:00 Respiratory Pattern Normal 02/14/18 08:00 Blood Pressure 120/78 02/14/18 08:00 Pulse Oximetry 96 02/14/18 08:00 Respiratory End-tidal CO2 32 02/12/18 10:50 Oxygen Delivery Method Room Air 02/14/18 08:00 Oxygen Flow Rate 0 02/14/18 08:00 Pain Level 4 02/14/18 08:14 Comment 02/13/18 11:40 Intake & Output 02/13/18 02/13/18 02/14/18 11:59 23:59 11:59 Intake Total 1665.333 / 1678.333 13 / 1678.333 990 / 990 Output Total 650 / 650 Balance 1015.333 / 1028.333 13 / 1028.333 990 / 990 Intake: IV 825.333 / 838.333 13 / 838.333 20 / 20 Oral 840 / 840 970 / 970 Output: Urine 650 / 650 Other: Urine Color Yellow Urine Appearance Clear Clear Urine Odor Normal Comment pt reports voiding in toilet x 1 void x 1 Voiding Methods Toilet Toilet Toilet PFSH Family History Mother Parkinsons Father No problems noted. Sister Marfans syndrome Extraction of cataract Replacement of total knee joint Family History Mother Parkinsons Father No problems noted. Sister Marfans syndrome Social History housing: house lives independently: Yes number of children: 0 current occupational status: retired well-balanced diet: daily or most days Smoking/Tobacco Use Status: Never alcohol intake: never substance use type: does not use working smoke detector in home: Yes fire extinguisher in home: Yes carbon monox detector in home: Yes Surgical History Extraction of cataract Replacement of total knee joint Social History housing: house lives independently: Yes number of children: 0 current occupational status: retired well-balanced diet: daily or most days Smoking/Tobacco Use Status: Never alcohol intake: never substance use type: does not use working smoke detector in home: Yes fire extinguisher in home: Yes carbon monox detector in home: Yes
--- NOTE | 2018-02-14 11:17 | PT.INDS ---
Date of service: 02/14/18 Time of Service: 11:18 PT Notes Inpatient Physical Therapy Discharge Summary Date: 02/14/18 Dates of Service: 02/12/18-02/14/18 SUBJECTIVE: NT OBJECTIVE: 02/12/18-02/14/18 Bed Mobility/Transfers: Supine to sit: independent Sit to stand: independent with FWW Stand-sit: independent Sit to supine: independent Gait: supervision with FWW 125ft x2 WBAT RLE Stairs: up/down 5 steps with bilateral railings supervision Balance: Static Sitting: Normal Dynamic Sitting: Normal Static Standing: Fair Dynamic Standing: Fair. Assessment: Patient is an 82-year-old female as/P right total hip arthroplasty by Dr. Allen 02/12/2018 in setting of Osteoarthritis right hip, right total knee arthroplasty. Patient was seen for 3 PT visits. Progressed from SBA standing transfers to independent, from CGA gait with FWW 50ftx2 to supervision gait with FWW [id number], able to ascend/descend 5 steps with railings, supervision. Pt is being discharged to home today, discharge PT services. Goals: Goals X1 week 1. Supine-Sit: Independent 2. Sit-Supine: Independent 3. Sit-Stand: Supervision with FW W 4. Stand-Sit: Supervision 5. Bed-Chair: SBA with FW W 6. Chair-Bed: SBA with FW W 7. Gait: SBA with FW W 100 feet x2, WBAT RLE 8. Stairs: Up/down 2 steps with railing, SBA, WBAT RLE 9. Independent with home exercise program for ROBERTO Pt met goals # 1, 2, 3, 4, 5, 6, 7, 8, 9 DISCHARGE RECOMMENDATIONS: home G Codes in the area mobility of walking and moving around:projected status GP [id number]. Discharge status (if discharging) GP [id number] CK Marlys Phillips PT
--- NOTE | 2018-02-14 11:23 | INDS_ITS ---
Date of service: 02/14/18 Time of Service: 11:18 PT Notes Inpatient Physical Therapy Discharge Summary Date: 02/14/18 Dates of Service: 02/12/18-02/14/18 SUBJECTIVE: NT OBJECTIVE: 02/12/18-02/14/18 Bed Mobility/Transfers: Supine to sit: independent Sit to stand: independent with FWW Stand-sit: independent Sit to supine: independent Gait: supervision with FWW 125ft x2 WBAT RLE Stairs: up/down 5 steps with bilateral railings supervision Balance: Static Sitting: Normal Dynamic Sitting: Normal Static Standing: Fair Dynamic Standing: Fair. Assessment: Patient is an 82-year-old female as/P right total hip arthroplasty by Dr. Allen 02/12/2018 in setting of Osteoarthritis right hip, right total knee arthroplasty. Patient was seen for 3 PT visits. Progressed from SBA standing transfers to independent, from CGA gait with FWW 50ftx2 to supervision gait with FWW [id number], able to ascend/descend 5 steps with railings, supervision. Pt is being discharged to home today, discharge PT services. Goals: Goals X1 week 1. Supine-Sit: Independent 2. Sit-Supine: Independent 3. Sit-Stand: Supervision with FW W 4. Stand-Sit: Supervision 5. Bed-Chair: SBA with FW W 6. Chair-Bed: SBA with FW W 7. Gait: SBA with FW W 100 feet x2, WBAT RLE 8. Stairs: Up/down 2 steps with railing, SBA, WBAT RLE 9. Independent with home exercise program for ROBERTO Pt met goals # 1, 2, 3, 4, 5, 6, 7, 8, 9 DISCHARGE RECOMMENDATIONS: home G Codes in the area mobility of walking and moving around:projected status GP [id number]. Discharge status (if discharging) GP [id number] CK Marlys Phillips PT
--- NOTE | 2018-02-14 11:43 | PDOC.CMDIS ---
- If Service Date Differs Date of service: 02/14/18 Time of Service: 11:49 LACE Index Scoring Tool - Questions: Length of Stay (in days): 2 Acuity (Admit via E.D.?): No Comorbidities: Cerebrovascular Disease E.D. Visits: 0 - Answers: Total Score: 3 Risk of Readmission: Low Risk Care Management Discharge Reason for Hospitalization: (R) Hip DJD Discharge Plan: Marilee will return home today with home health PT services. CM met with Marilee this morning, whom states that her neighbor Dior will transport her home today. CM contacted [facility] in regards to referral and left message on referral line. CM also contacted [facility] in [facility] and faxed insurance cards for their records. Patient/Family Education Needs: Review DC instructions, any limitations, and discuss Ask Me Three Services Needed at Discharge: Home Health Care Services (PT)
[2018-02-14] MEDS: traMADol 50 MG TAB PO (12:01)
--- NOTE | 2018-02-14 12:34 | CMDISCH_ITS ---
- If Service Date Differs Date of service: 02/14/18 Time of Service: 11:49 LACE Index Scoring Tool - Questions: Length of Stay (in days): 2 Acuity (Admit via E.D.?): No Comorbidities: Cerebrovascular Disease E.D. Visits: 0 - Answers: Total Score: 3 Risk of Readmission: Low Risk Care Management Discharge Reason for Hospitalization: (R) Hip DJD Discharge Plan: Marilee will return home today with home health PT services. CM met with Marilee this morning, whom states that her neighbor Dior will transport her home today. CM contacted [facility] in regards to referral and left message on referral line. CM also contacted [facility] in [facility] and faxe d insurance cards for their records. Patient/Family Education Needs: Review DC instructions, any limitations, and discuss Ask Me Three Services Needed at Discharge: Home Health Care Services (PT)
--- NOTE | 2018-02-14 14:54 | CHAPLAIN ---
When I visited Marilee yesterday she remembered me from her previous admission when she had her knee replaced. She is feeling okay after this hip replacement surgery, but said she is waiting for more pain medication. She seems to be comfortable being here and anticipates what to expect following this surgery.
== END 2018-02-14 13:00 | disposition home health service (06) | DRG 470 ==
LOC: PDS 07:49 → MS 09:57
PROVIDERS: Admitting Provider Student in an Organized Health Care Education/Training Program; PCP Internal Medicine; Visit Provider Student in an Organized Health Care Education/Training Program
PROC: 0SR904A Replacement of Right Hip Joint with Ceramic on Polyethylene Synthetic Substitute, Uncemented, Open Approach (ICD-10-PCS; CPT 27130; principal; 2018-02-12 07:45)
DX: M16.11 Unilateral primary osteoarthritis, right hip (principal); Z96.641 Presence of right artificial hip joint; R11.0 Nausea; R42 Dizziness and giddiness; I10 Essential (primary) hypertension
CPT/HCPCS: 27130; 36415; 80048; 85027; 97110; 97162; 97530; NC; 72170; 73501; J0690; J1100; J1885; J2370; J2405

== ENCOUNTER 2018-03-06 11:17 | Outpatient (CLI) | payer MEDICARE, BC, SELFPAY ==
--- NOTE | 2018-03-06 10:58 | DI.RAD_ITS ---
SYMPTOMS/DIAGNOSIS: S/P RT TKA RIGHT HIP AND PELVIS: Comparison is made with [id number]. There has been no change in the alignment of the right hip prosthesis. Mild to moderate degenerative changes are again noted in the left hip.
== END 2018-03-06 11:37 ==
PROVIDERS: PCP Internal Medicine; Visit Provider Student in an Organized Health Care Education/Training Program
DX: M25.551 Pain in right hip (principal); Z96.641 Presence of right artificial hip joint; Z47.1 Aftercare following joint replacement surgery; M16.12 Unilateral primary osteoarthritis, left hip
CPT/HCPCS: 73502

== ENCOUNTER → 2018-03-27 12:47 | Outpatient (BNVA) | payer MEDICARE, BC, SELFPAY | PROVIDERS: PCP Internal Medicine; Referring Provider Internal Medicine; Visit Provider Student in an Organized Health Care Education/Training Program | DX: Z47.1 Aftercare following joint replacement surgery (principal); Z96.641 Presence of right artificial hip joint ==

== ENCOUNTER → 2018-05-08 13:02 | Outpatient (BNVA) | payer MEDICARE, BC, SELFPAY | PROVIDERS: PCP Internal Medicine; Referring Provider Internal Medicine; Visit Provider Student in an Organized Health Care Education/Training Program | DX: Z47.1 Aftercare following joint replacement surgery (principal); Z96.641 Presence of right artificial hip joint; M16.11 Unilateral primary osteoarthritis, right hip ==

== ENCOUNTER 2018-07-12 10:17 | Outpatient (CLI) | payer MEDICARE, BC, SELFPAY ==
--- NOTE | 2018-07-12 10:15 | DI.RAD_ITS ---
SYMPTOMS/DIAGNOSIS: RIGHT HIP PAIN RIGHT HIP AND PELVIS: Two views were obtained and show total hip joint replacement in position. Components appear well seated. No other bony abnormality seen. Note is made of moderate DJD of the left hip and there is an incidental calcified uterine fibroid in the pelvic midline.
== END 2018-07-12 10:37 ==
PROVIDERS: PCP Internal Medicine; Referring Provider Internal Medicine; Visit Provider Student in an Organized Health Care Education/Training Program
DX: M25.551 Pain in right hip (principal); Z96.641 Presence of right artificial hip joint; M16.12 Unilateral primary osteoarthritis, left hip; Z47.1 Aftercare following joint replacement surgery; I10 Essential (primary) hypertension
CPT/HCPCS: 36415; 85027; 85652; 99213; 73502; 86140

== ENCOUNTER 2018-07-12 10:48 | Outpatient (CLI) | payer MEDICARE, BC, SELFPAY ==
[2018-07-12 11:40] LABS: HCT 40.8 % (36.0-46.0); HGB 13.6 g/dL (12.0-15.5); Mean Corp. HGB Concentration 33.3 g/dL (32.0-36.0); Mean Corpuscular Hemoglobin 30.6 pg (27.0-33.0); Mean Corpuscular Volume 91.9 fL (80-95); Platelet Count 196 x1000/uL (130-400); RBC 4.44 m/cumm (4.00-5.20); RBC Distribution Width 13.5 % (11.7-14.6); White Blood Cell Count 7.39 k/cumm (4.4-10.8)
[2018-07-12 12:10] LABS: C-Reactive Protein 0.55 mg/dL (0.0-0.3)
[2018-07-12 13:15] LABS: ESR 23 MM/HR (0-30)
== END 2018-07-12 11:08 ==
PROVIDERS: PCP Internal Medicine; Visit Provider Student in an Organized Health Care Education/Training Program
DX: M25.551 Pain in right hip (principal); Z96.641 Presence of right artificial hip joint
CPT/HCPCS: 36415; 85027; 85652; 86140

== ENCOUNTER 2018-07-25 01:28 | Outpatient (CLI) | payer MEDICARE, BC, SELFPAY ==
--- NOTE | 2018-07-25 10:45 | DI.RAD_ITS ---
SYMPTOMS/DIAGNOSIS: RT HIP ASPIRATION, H/O TOTAL RT HIP REPLACEMENT, Z96.641 RIGHT HIP ASPIRATION: Fluoroscopy Time: 8.2 sec 0.85 mGy The patient has a right hip prosthesis in place. Under fluoroscopic control, Dr. Allen positioned a needle in the hip joint in conjunction with a joint aspiration. Please see the procedure report for further information.
[2018-07-25] MEDS: Bupivacaine 0.5% Pres-Free 10 ML VIAL 8 ML IJ (11:57)
[2018-07-25 12:44] LABS: Source R HIP
[2018-07-25 12:45] LABS: Clarity CLOUDY; Mononuclear Cells 96 % (0-0); Nucleated Cells 500 /MM3 (0-0); Polynuclear Cells 4 % (0-0)
--- NOTE | 2018-07-30 16:47 | OPPNE_ITS ---
Date of service: 07/25/18 Time of Service: 11:44 Procedure Note Date of procedure: 07/25/18 Procedure: Right Hip Aspiration with Fluoroscopic Guidance Surgeon/Proceduralist/Physician: Thierry Allen Procedure Diagnosis: Right Hip Osteoarthritis Procedure Indications: Marilee has had worsening pain of the RIGHT hip and groin after a hip replacement. Her C- reactive protein was very mildly elevated and therefore I deemed it necessary to aspirate the hip to rule out infection. I had discussed the risks of the procedure and the patient elected to proceed. Procedure Description: Marilee was greeted in the flouroscopy room. The correct side was identified and the consent was reviewed with the patient and signed. The patient was then placed in the supine position on the fluoroscopy table. The RIGHT hip was then prepped with Chloraprep. The anterolateral injection starting point was identiifed by bony landmarks and fluoroscopy. The skin and soft tissue in the tract of the injection was anesthetized with 1% Lidocaine. A spinal needle was then inserted deep into the hip joint at the level of the lateral femoral neck under fluoroscopic guidance. I was able to contact the femoral head with the notable metal and ceramic distinction. I was able to withdrawal easily 10 cc of thickened but fairly normal-appearing orange-colored joint fluid. No gross purulence. The hip was injected with 6cc of 0.5% Bupivicaine for an anesthetic arthrogram. A bandaid was placed on the injection site. The patient tolerated the procedure well and she did note some improvement in pre-injection pain.
== END 2018-07-25 01:48 ==
PROVIDERS: PCP Internal Medicine; Visit Provider Student in an Organized Health Care Education/Training Program
DX: Z96.641 Presence of right artificial hip joint (principal); M25.551 Pain in right hip; M16.11 Unilateral primary osteoarthritis, right hip
CPT/HCPCS: 20610; 77002; 87070; 87075; 87205; 89051; 89060

== ENCOUNTER 2018-08-07 13:07 | Outpatient (CLI) | payer MEDICARE, BC, SELFPAY ==
--- NOTE | 2018-08-07 12:49 | DI.RAD_ITS ---
SYMPTOMS/DIAGNOSIS: S/P RIGHT TOTAL HIP ARTHROPLASTY RIGHT HIP: Two views. Comparison is 07/12/18. There are again seen postsurgical changes of a right total hip replacement. No evidence of hardware failure is seen. The bones are intact. The soft tissues are unremarkable.
== END 2018-08-07 13:27 ==
PROVIDERS: PCP Internal Medicine; Referring Provider Internal Medicine; Visit Provider Student in an Organized Health Care Education/Training Program
DX: Z96.641 Presence of right artificial hip joint (principal); Z47.1 Aftercare following joint replacement surgery; M16.11 Unilateral primary osteoarthritis, right hip; R10.31 Right lower quadrant pain; Z98.890 Other specified postprocedural states
CPT/HCPCS: 99212; 99213; 73502

== ENCOUNTER → 2018-09-18 12:50 | Outpatient (BNVA) | payer MEDICARE, BC, SELFPAY | PROVIDERS: Referring Provider Internal Medicine; Visit Provider Student in an Organized Health Care Education/Training Program | DX: Z96.641 Presence of right artificial hip joint (principal); R10.30 Lower abdominal pain, unspecified; M54.5 Low back pain; M25.551 Pain in right hip | CPT/HCPCS: 99213 ==

== ENCOUNTER 2018-12-26 13:54 | Outpatient (CLI) | payer MEDICARE, BC, SELFPAY ==
[2018-12-26 15:42] LABS: Anion Gap 8.6 mmol/L (3-11); BUN 24 mg/dL (7-18); CO2 30.4 mmol/L (21.0-32.0); CREATININE 0.82 mg/dL (0.55-1.02); Calcium 9.6 mg/dL (8.5-10.1); Chloride 105 mmol/L (98-107); Glucose 88 mg/dL (70-100); Potassium 3.8 mmol/L (3.5-5.1); Sodium 144 mmol/L (136-145)
== END 2018-12-26 14:14 ==
PROVIDERS: PCP Internal Medicine; Visit Provider Internal Medicine
DX: I10 Essential (primary) hypertension (principal)
CPT/HCPCS: 36415; 80048

== ENCOUNTER 2019-02-10 12:58 | Outpatient (CLI) | payer MEDICARE, BC, SELFPAY ==
--- NOTE | 2019-02-10 13:24 | DI.RAD_ITS ---
EXAM: XR HIP AND PELVIS ADULT BL INDICATION: ANNUAL F/U, PAIN. COMPARISON: XR hip RT AP lat only from 08/07/2018 TECHNIQUE: 2D digital imaging was performed. FINDINGS: There has been no change in the right hip prosthesis. The left hip shows mild acetabular spurring. There is some spurring from the femoral head and some irregularity of the femoral head. IMPRESSION: Stable appearance of right hip prosthesis. Moderate degenerative changes of the left hip.
== END 2019-02-10 13:18 ==
PROVIDERS: PCP Internal Medicine; Referring Provider Internal Medicine; Visit Provider Student in an Organized Health Care Education/Training Program
DX: Z96.641 Presence of right artificial hip joint (principal); Z47.1 Aftercare following joint replacement surgery; M16.12 Unilateral primary osteoarthritis, left hip; M70.62 Trochanteric bursitis, left hip
CPT/HCPCS: 20610; 73521; 99214; J1040

== ENCOUNTER 2019-12-02 15:43 | Outpatient (REF) | payer MEDICARE, BC, SELFPAY ==
[2019-12-02 19:01] LABS: BUN 20 mg/dL (7-18); CREATININE 0.64 mg/dL (0.55-1.02); Calcium 9.5 mg/dL (8.5-10.1); Calculated LDL 108 mg/dL (<100); Chloride 105 mmol/L (98-107); Cholesterol 238 mg/dL (<200); Glucose 95 mg/dL (74-106); HDL Cholesterol 120 mg/dL (40-60); Potassium 4.1 mmol/L (3.5-5.1); Sodium 141 mmol/L (136-145); TSH 1.13 uIU/mL (0.36-3.74); Triglyceride 50 mg/dL (<150)
== END 2019-12-02 16:03 ==
LOC: LBN 15:43
PROVIDERS: PCP Internal Medicine; Visit Provider Internal Medicine
DX: I10 Essential (primary) hypertension (principal)
CPT/HCPCS: 80048; 80061; 84443

== ENCOUNTER 2020-12-29 15:21 | Outpatient (REF) | payer MEDICARE, BC, SELFPAY ==
[2020-12-29 20:05] LABS: HCT 41.2 % (36.0-46.0); HGB 13.8 g/dL (11.2-15.7); MCH 30.5 pg (27.0-33.0); MCHC 33.5 % (32.0-36.0); MCV 90.9 fL (80-95); MPV 11.6 fL (8.0-11.0); Platelet Count 210 10^3/uL (130-400); RBC 4.53 10^6/uL (3.93-5.22); RDW 12.8 % (11.7-14.6); RDW-SD 41.6 fL; WBC 5.08 10^3/uL (4.4-10.8)
[2020-12-29 20:12] LABS: Anion Gap 7.2 mmol/L (3-11); BUN 22 mg/dL (7-18); CO2 31.8 mmol/L (21.0-32.0); CREATININE 0.7 mg/dL (0.55-1.02); Calcium 9.3 mg/dL (8.5-10.1); Chloride 105 mmol/L (98-107); Glucose 84 mg/dL (74-106); Potassium 3.8 mmol/L (3.5-5.1); Sodium 144 mmol/L (136-145)
== END 2020-12-29 15:22 | disposition home or self-care (01) ==
LOC: LBO 15:21
PROVIDERS: PCP Internal Medicine; Visit Provider Internal Medicine
DX: I10 Essential (primary) hypertension (principal); R26.89 Other abnormalities of gait and mobility
CPT/HCPCS: 80048; 85027

== ENCOUNTER 2022-06-10 14:23 | Observation (INO) | payer MEDICARE, BC, SELFPAY ==
[2022-06-10] VITALS (14 sets, daily range): BP systolic 67–177; BP diastolic 36–105; PULSE 73–113; RESP 13–22; TEMP 36.3–36.4; O2SAT 96–99
--- NOTE | 2022-06-10 14:15 | RT.EKG_ITS ---
APPROVED REPORT Exam: Resting ECG Reason for Exam: fall Patient Location: E HR:93 bpm ECG Measurements Heart Rate 93 AXIS OR [id number] P [id number] QRSd 75 QRS -5 QT 369 T 39 QTc 459 Conclusion Atrial fibrillation...? atrial activity Rhythm motion artifact linmits interpretation, no stemi, p waves seen in v4 and v5
--- NOTE | 2022-06-10 14:45 | DI.CT_ITS ---
Exam(s) CT HEAD CERVICAL SPINE WO EXAM: CT HEAD CERVICAL SPINE WO CLINICAL HISTORY: fall, pain. TECHNIQUE: Imaging Protocol: Axial computed tomography images with coronal and sagittal reformatted images were created and reviewed COMPARISON: No exams were available for comparison FINDINGS: CT Head: Ventricles and Extra axial spaces: Normal in size and morphology for the patient's age. Hemorrhage: None. Cerebral parenchyma: No acute territorial infarct is seen. There are areas of decreased attenuation in the white matter consistent with small vessel ischemic disease. Midline shift: None. Brainstem/Cerebellum: Normal. Calvarium: Normal. Visualized Paranasal sinuses/Mastoids: Clear. Soft Tissues: Unremarkable. CT Cervical Spine: Bones: No acute fracture or subluxation. Degenerative changes are seen throughout the cervical spine. There is a mild right convex curvature of the cervical spine. Soft Tissues: Unremarkable. Lung Apices: There is scarring in the lung apices. IMPRESSION: 1. No acute intracranial process. 2. No acute fracture or subluxation in the cervical spine. RADIATION DOSE DELIVERED: 1,079.48mGy.cm Total DLP DATA REPOSITORY: All CT scans at this facility are submitted to the National Radiology Data Registry (NRDR) Dose Index Registry (DIR) with the [employer] (ACR). RADIATION OPTIMIZATION: All CT scans at this facility use at least one of these dose optimization te chniques: automated exposure control; mA and/or kV adjustment per patient size (includes targeted exa ms where dose is matched to clinical indication); or iterative reconstruction.
--- NOTE | 2022-06-10 14:45 | DI.RAD_ITS ---
Exam(s) XR FEMUR RT EXAM: XR FEMUR RT CLINICAL HISTORY: pain s/p fall. TECHNIQUE: 2D digital imaging was performed of the right femur. Four images were obtained. AP and l ateral views were obtained. COMPARISON: No exams were available for comparison FINDINGS: BONES: No acute fracture is present. No bony destructive lesion is seen. The patient has a right tota l hip and a right total knee replacement. SOFT TISSUE: Normal. IMPRESSION: No acute fracture or dislocation. DATA REPOSITORY: RADIATION DOSE DELIVERED:
--- NOTE | 2022-06-10 14:45 | DI.RAD_ITS ---
Exam(s) XR FEMUR LT EXAM: XR FEMUR LT CLINICAL HISTORY: pain s/p fall. TECHNIQUE: 2D digital imaging was performed of the left femur. Four images were obtained. AP and lat eral views were obtained. COMPARISON: CR XR HIP PELVIS ADULT BL from 02/10/2019 CR,XR XR FEMUR RT from 06/10/2022 FINDINGS: BONES: There is an old healed fracture of the inferior pubic ramus. No acute fracture is identified. No bony destructive lesion is seen. There are degenerative changes of the left hip with joint space narrowing and periarticular spurring. There are degenerative changes seen in the knee. SOFT TISSUE: Atherosclerosis is present. IMPRESSION: No acute fracture or dislocation. DATA REPOSITORY: RADIATION DOSE DELIVERED:
--- NOTE | 2022-06-10 14:45 | DI.RAD_ITS ---
Exam(s) XR CHEST 2V PA LATERAL EXAM: XR CHEST 2V PA LATERAL CLINICAL HISTORY: fall, ?pneumonia TECHNIQUE: 2D digital imaging was performed of the chest. Images were obtained. PA and lateral v iews were obtained. COMPARISON: There are no priors for comparison. FINDINGS: Examination limited by patient positioning. MEDIASTINUM: Normal. HEART: Normal. PULMONARY VASCULATURE: Normal. LUNGS: There is biapical scarring. There ill-defined opacities in the left upper lobe. PLEURAL SPACE: No pleural effusion or pneumothorax. BONE:Within normal limits for the patient's age. There is a left convex thoracic scoliosis. OTHER FINDINGS:Normal. IMPRESSION: Question of a left upper lobe infiltrate. DATA REPOSITORY: RADIATION DOSE DELIVERED:
--- NOTE | 2022-06-10 14:45 | DI.RAD_ITS ---
Exam(s) XR PELVIS AP EXAM: XR PELVIS AP CLINICAL HISTORY: pain s/p fall. TECHNIQUE: 2D digital imaging was performed. One image was obtained. COMPARISON: CR XR HIP PELVIS ADULT BL from 02/10/2019 FINDINGS: BONES: No acute fracture is present. No bony destructive lesion is seen. JOINTS: No dislocation present. The patient has a right total hip replacement. Mild degenerative rose nges are seen in the left hip with joint space narrowing and periarticular spurring present. SOFT TISSUE: Soft tissue calcifications are seen in the pelvis likely reflecting calcified uterine fi broids. IMPRESSION: No acute fracture or dislocation. DATA REPOSITORY: RADIATION DOSE DELIVERED:
--- NOTE | 2022-06-10 14:46 | DI.CT_ITS ---
Exam(s) CT LUMBAR SPINE SI JOINTS WO EXAM: CT LUMBAR SPINE SI JOINTS WO CLINICAL HISTORY: pain s/p fall. TECHNIQUE: Imaging Protocol: Axial computed tomography images with coronal and sagittal reformatted images were created and reviewed. COMPARISON: CT PELVIC/LOWER ABD WITHOUT CONT from 12/04/2014 CR,XR XR PELVIS AP from 06/10/2022 FINDINGS: Bones: No fractures or dislocations are seen. Mild degenerative changes are seen in the lumbar spine . The sacroiliac joints are well maintained. There is levoscoliosis at the thoracolumbar junction. 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 Soft tissues: There is atherosclerosis of the abdominal aorta. Calcifications are seen in the uterus likely reflecting calcified uterine fibroids. No large disk herniations are identified. IMPRESSION: No acute fracture or subluxation in the lumbar spine. RADIATION DOSE DELIVERED: 763.86 mGy.cm Total DLP 763.86 mGy.cm Total DLP DATA REPOSITORY: All CT scans at this facility are submitted to the National Radiology Data Registry (NRDR) Dose Index Registry (DIR) with the [employer] (ACR). RADIATION OPTIMIZATION: All CT scans at this facility use at least one of these dose optimization te chniques: automated exposure control; mA and/or kV adjustment per patient size (includes targeted exa ms where dose is matched to clinical indication); or iterative reconstruction.
--- NOTE | 2022-06-10 14:48 | ED.GENADUL_ITS ---
Discharge Plan Disposition Patient Disposition: Admit to [facility] Discharge Details Chief Complaint: Trauma Clinical Impression: CAP (community acquired pneumonia), Fall, Blunt head trauma, Blunt traumatic injury of lwuilzl-egsugdlk-ewhwag region, Rhabdomyolysis Primary Care Provider: Claudia Pimentel ED Provider: Larry Gonzalez Home Meds and New Rx's Prescriptions: No Action calcium carbonate [Calcium 500] 500 mg calcium (1,250 mg) tablet 500 mg PO DAILY PRN naproxen sodium [Aleve] 220 mg capsule 220 mg PO TID ibuprofen 200 mg capsule 400 mg PO DAILY PRN Tylenol Extra Strength 500 mg powder in packet 500 mg PO TID ascorbic acid (vitamin C) [Vitamin C] 500 MG capsule, extended release 500 mg PO DAILY Women's Daily Multivitamin 1 EACH tablet 1 ea PO DAILY chlorthalidone 25 mg tablet 12.5 mg PO DAILY Qty: 45 3RF aspirin 81 mg Tablet,Delayed Release (Dr/Ec) 81 mg PO BID Qty: 80 0RF Medical Decision Making 86 yo female with hx of htn who lives alone states on her right leg gave out and she fell. She had hip pain and tailbone pain and was unable to get off the ground, denies loc. A neighbor who checks on her periodically found her today and called ems. She arrives stable, caox4 speaking clearly. She has pain in her right hip with minimum rom due to pain. She has mild tenderness in the left lateral hip. Normal distal sensation and pulses, no tenderness elsewhere in the legs. She does have tenderness in the tailbone area, no palpable deformities or stepoffs. No abdomen or chest or upper back tenderness. Unclear etiology for her fall, she has no focal deficits on exam. Will obtain ct head/cspine, cxr, ct lumbar spine/coccyx and obtain xrays of the hips/femurs. Will obtain cbc, cmp, ekg/troponin, ua. labs remarkable for wbc of 14, cpk over 2000, troponin in the 200's, imaging all unremarkable other than possible left upper lobe consolidation, pt denies cough and fever, she has no chest pain or dyspnea. Discussed results with pt, given the rhabdo and possible pneumonia feel she is not safe for d.c, will discuss with hospitalist, ceftriaxone and azithromycin ordered for possible cap Differential Diagnosis Differential Diagnosis: hip fracture, anemia, electolyte abnormality Medical Records Medical records reviewed: Yes I reviewed the patient's medical records. Imaging Data Radiologic Study: Attestation: I personally reviewed and interpreted this imaging study as follows: Imaging: CT Scan Radiologist's impression: no acute findings ct head/cspine Radiologic Study #2: Attestation: I personally reviewed and interpreted this imaging study as follows: Imaging: CT Scan Radiologist's impression: no acute findings lumbar ct Radiologic Study #3: Attestation: I personally reviewed and interpreted this imaging study as follows: Imaging: CT Scan Radiologist's impression: no acute findings pelvis ct Radiologic Study #4: Attestation: I personally reviewed and interpreted this imaging study as follows: Imaging: X-Ray Radiologist's impression: Exam: XR Chest Exam date and time: 06/10/2022 4:51 PM Age: 86 years old Clinical indication: Other: Fall, ? pneumonia TECHNIQUE: Imaging protocol: Radiologic exam of the chest. Views: 2 views. COMPARISON: CT HEAD CERVICAL SPINE WO 06/10/2022 4:01 PM FINDINGS: Lungs: There is some patchy ill-defined opacity seen in the left upper lobe partially superimposed over the scapula. Minimal left pleural apical thickening is noted. Pleural spaces: See Lungs finding. Heart/Mediastinum: Unremarkable. No cardiomegaly. Bones/joints: There is fairly significant thoracic levoscoliosis. IMPRESSION: Mild distortion from levoscoliosis. Possible early consolidation left upper lobe. Radiologic Study #5: Attestation: I personally reviewed and interpreted this imaging study as follows: Imaging: X-Ray Radiologist's impression: no acute findings pelvis xray Radiologic Study #6: Attestation: I personally reviewed and interpreted this imaging study as follows: Imaging: X-Ray Radiologist's impression: no acute findings left femur Radiologic Study #7: Attestation: I personally reviewed and interpreted this imaging study as follows: Imaging: X-Ray Radiologist's impression: no acute findings right femur Lab Data Lab results reviewed: Yes I reviewed the patient's lab results. ECG Data Attestation: I personally reviewed and interpreted this ECG (s) as follows: Prior ECG tracings: not available for review Interpretation: motion artifact but appears sinus, rate of 93, no stemi HPI General Date/Time Provider Initiated Documentation: 06/10/22 14:26 . History of Present Illness 86 year old F presents to the emergency department with the chief co mplaint of fall, described as moderate, Quality is described as aching, Patient started experiencing this day(s) (2) and it has been constant. No relieving factors improve symptom(s), No exacerbating factors reported . Patient did receive the following treatments prior to arrival, none Related Data Home Medications Medication Instructions Recorded Confirmed ascorbic acid (vitamin C) 500 mg 500 mg PO DAILY 07/24/12 12/30/21 capsule,extended release (Vitamin C) qwemgpbiqdst-Ck-ahat-minerals 18 1 ea PO DAILY 07/24/12 12/30/21 mg-0.4 mg tablet (Women's Daily Multivitamin) aspirin 81 mg tablet,delayed 81 mg PO BID #80 tabs 02/14/18 12/30/21 release ibuprofen 200 mg capsule 400 mg PO DAILY PRN 07/10/18 12/30/21 calcium carbonate 500 mg calcium 500 mg PO DAILY PRN 12/29/20 12/30/21 (1,250 mg) tablet (Calcium 500) acetaminophen 500 mg oral powder 500 mg PO TID 06/29/21 12/30/21 packet (Tylenol Extra Strength) naproxen sodium 220 mg capsule 220 mg PO TID 06/29/21 12/30/21 (Aleve) chlorthalidone 25 mg tablet 12.5 mg PO DAILY #45 tab-caps 04/10/22 Previous Rx's Medication Instructions Recorded aspirin 81 mg tablet,delayed 81 mg PO BID #80 tabs 02/14/18 release chlorthalidone 25 mg tablet 12.5 mg PO DAILY #45 tab-caps 04/10/22 Allergies Allergy/AdvReac Type Severity Reaction Status Date / Time local anesthesia Allergy Unknown Other (See Uncoded 12/30/21 13:45 Comment) General Stated Complaint: Trauma THEODORA: 3 Review of Systems All systems reviewed & are unremarkable except as noted in HPI and below Constitutional Constitutional: Denies chills, Denies fever(s) and Denies weakness Cardiovascular Cardiovascular: Denies chest pain and Denies dyspnea Respiratory Respiratory: Denies cough and Denies dyspnea Gastrointestinal Gastrointestinal: Denies abdominal pain, Denies nausea and Denies vomiting Integumentary/Breasts Skin/Breast: Denies rash Neurologic Neurologic: Denies weakness PFSH All Active Problems (Updated 06/10/22 @ 17:20 by Larry Gonzalez MD) CAP (community acquired pneumonia) (Acute) Fall (Acute) Blunt head trauma (Acute) Blunt traumatic injury of mzhkrel-nzzkpehc-sfryqg region (Acute) Rhabdomyolysis (Acute) Impaired gait and mobility (Chronic ~2021) Assistive device Thoracic scoliosis (Chronic) Chronic hip pain (Chronic) Essential hypertension (Chronic 01/24/13) Medical History (Updated 06/10/22 @ 17:20 by Larry Gonzalez MD) Acute pain of left hip Basal cell carcinoma (BCC) 04/15/19-Dr. Young R/O BCC vs SCCA right nasal bridge. await biposy result in [address] 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) Osteoarth NOS-l/leg (06/20/11) Other and unspecified hyperlipidemia (07/23/12) PCEq 24.1%; declines statins Patient has active physician orders for life-sustaining treatment (POLST) form (~06/30/21) DNR/DNI Primary osteoarthritis of left hip Primary osteoarthritis of right hip (10/03/17) Raynaud's syndrome (06/20/11) Trochanteric bursitis, left hip (10/03/17) Injected: 02/10/2019 Surgical History (Updated 12/30/21 @ 14:49 by Claudia Pimentel NP) Extraction of cataract left 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 No problems noted. 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: No Working smoke detector in home: Yes Fire extinguisher in home: Yes Carbon monox detector in home: Yes Do you feel safe at home: Yes Do you feel safe in your relationship?: Yes Exam Const General: no acute distress Orientation: alert HENMT Head: normal to inspection Ears: external ears normal General nose exam: external nose normal Mouth: moist mucous membranes Eyes General: appearance normal, both eyes and all related structures Neck Neck: normal visual inspection Resp Effort & Inspection: normal respiratory effort and able to speak in complete sentences Auscultation: clear to auscultation bilaterally Cardio Jugular venous pressure: no JVD Rate: regular rate Heart Sounds: no murmurs GI Palpation: soft and nontender Skin General skin exam: no rashes or lesions noted Neuro General: patient alert and patient oriented x3 Extrem General: normal to inspection Psych Mental Status: mental status grossly normal Course Vital Signs Vital signs: Vital Signs Pulse 80 06/10/22 14:33 Respiratory Rate 18 06/10/22 14:33 Blood Pressure 148/93 H 06/10/22 14:33 Pulse 80 06/10/22 14:33 Respiratory Rate 18 06/10/22 14:33 Blood Pressure 148/93 H 06/10/22 14:33 Oxygen Delivery Method Room Air 06/10/22 14:33 Oxygen Flow Rate 0 06/10/22 14:33
--- NOTE | 2022-06-10 14:54 | DI.CT_ITS ---
Exam(s) CT PELVIC WO EXAM: CT PELVIC WO CLINICAL HISTORY: fall, pain. TECHNIQUE: Imaging Protocol: Axial computed tomography images with coronal and sagittal reformatted images were created and reviewed. COMPARISON: CT PELVIC/LOWER ABD WITHOUT CONT from 12/04/[address] LUMBAR SPINE SI JOINTS WO from 06/10/2022 FINDINGS: Bones: There is artifact from the patient's right total hip replacement. The osseous structures and articular surfaces are intact. There is an old healed fracture of the inferior left pubic ramus. T he bones are osteopenic. Bony alignment is satisfactory. 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 The sacroiliac joints are well maintained. There is no evidence of joint space narrowing or cystic degeneration seen. No lytic or sclerotic lesions are identified. Soft Tissues: Normal. IMPRESSION: No acute fracture. RADIATION DOSE DELIVERED: Total DLP Total DLP DATA REPOSITORY: All CT scans at this facility are submitted to the National Radiology Data Registry (NRDR) Dose Index Registry (DIR) with the [employer] (ACR). RADIATION OPTIMIZATION: All CT scans at this facility use at least one of these dose optimization te chniques: automated exposure control; mA and/or kV adjustment per patient size (includes targeted exa ms where dose is matched to clinical indication); or iterative reconstruction.
[2022-06-10] MEDS: Normal Saline 1,000 ML 1000 ML IV (15:07)
[2022-06-10 15:10] LABS: BE (Venous) 6 mmol/L (-2-3); HCO3 (Venous) 31 mmol/L (23-28); O2 Sat (Venous) 49 %; TCO2 (Venous) 27 mmol/L (24-29); pCO2 (Venous) 52 mmHg (41-51); pH (Venous) 7.38 (7.31-7.41); pO2 (Venous) 27 mmHg
[2022-06-10 15:12] LABS: Abs Immature Grans 0.05 10^3/uL (0.0-0.06); Absolute Basophil Count 0.04 10^3/uL (0.0-0.2); Absolute Lymphocyte Count 0.68 10^3/uL (1.2-3.4); Absolute Monocyte Count 0.94 10^3/uL (0.1-0.8); Basophils % 0.3; Eosinophils % 1.8; HCT 48.1 % (36.0-46.0); HGB 17.3 g/dL (11.2-15.7); Immature Grans % 0.3; Lymphocytes % 4.6; MCH 31.6 pg (27.0-33.0); MCV 88 fL (80-95); MPV 10.3 fL (8.0-11.0); Monocytes % 6.4; Neutrophils % 86.6; Platelet Count 229 10^3/uL (130-400); RBC 5.48 10^6/uL (3.93-5.22); RDW 12.8 % (11.7-14.6); RDW-SD 40.8 fL; WBC 14.68 10^3/uL (4.4-10.8)
[2022-06-10 15:13] LABS: Absolute Eosinophil Count 0.26 10^3/uL (0.0-0.7); Absolute Neutrophil Count 12.71 10^3/uL (1.2-6.7)
[2022-06-10 15:40] LABS: ALT 58 U/L (14-59); AST 109 U/L (15-37); Alkaline Phosphatase 110 U/L (46-116); Anion Gap 8.2 mmol/L (3-11); BUN 39 mg/dL (7-18); Bilirubin, Total 1.2 mg/dL (0.2-1.0); CO2 31.8 mmol/L (21.0-32.0); CREATININE 0.8 mg/dL (0.55-1.02); Calcium 10.5 mg/dL (8.5-10.1); Chloride 99 mmol/L (98-107); Estimated GFR 72.61 (mL/min/1.73m2); Glucose 128 mg/dL (74-106); Magnesium 2.2 mg/dL (1.8-2.4); Potassium 3.2 mmol/L (3.5-5.1); Sodium 139 mmol/L (136-145); TSH (W/Ref FT4) 0.82 uIU/mL (0.36-3.74); Total Protein 7.9 g/dL (6.4-8.2)
[2022-06-10 15:43] LABS: Creatine Kinase 2267 U/L (26-192)
[2022-06-10 15:44] LABS: Troponin I 244 ng/L (<or=60)
[2022-06-10 15:48] LABS: COVID-19 PCR Negative (Negative); Influenza A PCR Negative (Negative); Influenza B PCR Negative (Negative); RSV PCR Negative (Negative)
[2022-06-10 15:53] LABS: Source Nasopharynx
[2022-06-10 16:20] LABS: Bilirubin Negative (Negative); Blood Negative (Negative); Clarity Clear (Clear); Glucose Negative (Negative); Ketones 15 mg/dL (Negative); Leukocyte Esterase Negative (Negative); Nitrite Negative (Negative); Specific Gravity >= 1.030 (1.005-1.025); Urobilinogen 0.2 mg/dL (Up to 0.2); pH 6.5 (5-8)
[2022-06-10 16:21] LABS: Bacteria Negative HPF (Negative); C & S Indicated? No; Casts Negative LPF (Negative); Crystals Negative HPF (Negative); Epithelial Cells Few HPF (Negative); Mucus Negative (Negative); Other Cells Negative (Negative); RBC 0-2 HPF (0-2); WBC 0-2 HPF (0-5)
--- NOTE | 2022-06-10 16:38 | DI.VRAD_ITS ---
PROCEDURE INFORMATION: Exam: CT Head Without Contrast Exam date and time: 06/10/2022 4:01 PM Age: 86 years old Clinical indication: Injury or trauma; Fall; Blunt trauma (contusions or hematomas); Patient HX: PT fell; Per PT: On floor since 06/08 TECHNIQUE: Imaging protocol: Computed tomography of the head without contrast. COMPARISON: No relevant prior studies available. FINDINGS: Brain: Cerebral volume loss noted. Scattered areas of decreased attenuation in the deep periventricular white matter consistent with small vessel ischemic change. No evidence for acute intracranial hemorrhage. Cerebral ventricles: No ventriculomegaly. Paranasal sinuses: Visualized sinuses are unremarkable. No fluid levels. Mastoid air cells: Visualized mastoid air cells are well aerated. Orbital cavities: Status post left cataract repair. Bones/joints: Unremarkable. No acute fracture. Soft tissues: Unremarkable. IMPRESSION: Senescent changes noted. No acute intracranial abnormality. PROCEDURE INFORMATION: Exam: CT Cervical Spine Without Contrast Exam date and time: 06/10/2022 4:01 PM Age: 86 years old Clinical indication: Injury or trauma; Fall; Blunt trauma (contusions or hematomas); Patient HX: PT fell; Per PT: On floor since 06/08 TECHNIQUE: Imaging protocol: Computed tomography of the cervical spine without contrast. COMPARISON: No relevant prior studies available. FINDINGS: Bones/joints: Mild torticollis towards the right, uncertain chronicity. Vertebral body height is well preserved. There is moderate mid cervical spondylosis. No stenosis. No evidence for acute fracture. Lungs: See Pleural spaces finding. Pleural spaces: Bilateral pleural apical scarring noted. Thyroid: Mild thyroid heterogeneity. Soft tissues: Unremarkable. IMPRESSION: No evidence for acute posttraumatic abnormality. Dictated and Authenticated by: Macarena Rodriguez MD. Ordering:PEGGY Juarez MD
--- NOTE | 2022-06-10 16:46 | DI.VRAD_ITS ---
PROCEDURE INFORMATION: Exam: CT Pelvis Without Contrast Exam date and time: 06/10/2022 4:19 PM Age: 86 years old Clinical indication: Injury or trauma; Fall; Blunt trauma (contusions or hematomas); Right; Hip; Prior surgery; Patient HX: PT fell 06/08, per PT: On floor since TECHNIQUE: Imaging protocol: Computed tomography of the pelvis without contrast. COMPARISON: CR XR HIP PELVIS ADULT BL 02/10/2019 1:24 PM FINDINGS: Stomach and bowel: Visualized small bowel and colon are unremarkable. Appendix: No evidence of appendicitis. Intraperitoneal space: Unremarkable. No free air. No significant fluid collection. Vasculature: Moderate atherosclerotic change present in the vasculature. Lymph nodes: Unremarkable. No enlarged lymph nodes. Urinary bladder: Normal. No mass. Reproductive: Dystrophic uterine calcifications are consistent with old fibroid disease. Bones/joints: There is beam hardening artifact from right hip prosthesis. The bone mineralization appears decreased. Bony alignment is anatomic without evidence for fracture or dislocation. There is left inferior pubic ramus deformity from previous trauma. Soft tissues: Prominent bilateral Tarlov cysts are seen at the upper sacral level. IMPRESSION: No evidence for acute posttraumatic abnormality. Dictated and Authenticated by: Macarena Rodriguez MD. Ordering:PEGGY Juarez MD
--- NOTE | 2022-06-10 16:53 | DI.VRAD_ITS ---
PROCEDURE INFORMATION: Exam: CT Lumbar Spine Without Contrast Exam date and time: 06/10/2022 4:19 PM Age: 86 years old Clinical indication: Injury or trauma; Fall; Blunt trauma (contusions or hematomas); Patient HX: PT fell; PT on floor since 06/08 TECHNIQUE: Imaging protocol: Computed tomography of the lumbar spine without contrast. COMPARISON: MRI - LUMBAR SPINE WO CONTRAST 11/10/2015 3:22 PM FINDINGS: Bones/joints: There is minimal levoscoliosis of the thoracolumbar junction. Vertebral body height is well preserved. There is no evidence for fracture. Tarlov cysts are noted at the upper sacral level. Lungs: Minimal left lower lobe fibrosis. Reproductive: Dystrophic uterine calcifications noted consistent with old fibroid disease. Vasculature: Moderate atherosclerotic change present in the vasculature. Lymph nodes: Right upper quadrant dystrophic calcifications, probable calcified lymph nodes. Soft tissues: See Bones/joints finding. IMPRESSION: No evidence for acute posttraumatic abnormality. Dictated and Authenticated by: Macarena Rodriguez MD. Ordering:PEGYG Juarez MD
--- NOTE | 2022-06-10 17:03 | DI.VRAD_ITS ---
PROCEDURE INFORMATION: Exam: XR Pelvis Exam date and time: 06/10/2022 4:32 PM Age: 86 years old Clinical indication: Other: Fall pain; Prior surgery; Surgery date: 6+ months; Surgery type: Right hip replacement TECHNIQUE: Imaging protocol: Radiologic exam of the pelvis. Views: 1 or 2 view. COMPARISON: CT PELVIC WO 06/10/2022 4:19 PM FINDINGS: Bones/joints: Right hip prosthesis. Bony alignment appears anatomic. No evidence for fracture. Soft tissues: Unremarkable. Organs: Dystrophic calcifications consistent with old fibroid disease. IMPRESSION: No evidence for fracture. Dictated and Authenticated by: Macarena Rodriguez MD. Ordering:PEGGY Juarez MD
--- NOTE | 2022-06-10 17:04 | DI.VRAD_ITS ---
PROCEDURE INFORMATION: Exam: XR Right Femur Exam date and time: 06/10/2022 4:33 PM Age: 86 years old Clinical indication: Other: Fall, pain; Prior surgery; Surgery date: 6+ months; Surgery type: Right hip replacment TECHNIQUE: Imaging protocol: Radiologic exam of the right femur. Views: 2 views. COMPARISON: CR XR PELVIS AP 06/10/2022 4:32 PM FINDINGS: Bones/joints: Right hip prosthesis in place. Right knee prosthesis in place. Bony alignment appears anatomic. No evidence for fracture. Soft tissues: Unremarkable. IMPRESSION: No evidence for fracture. Dictated and Authenticated by: Macarena Rodriguez MD. Ordering:PEGGY Juarez MD
--- NOTE | 2022-06-10 17:06 | DI.VRAD_ITS ---
PROCEDURE INFORMATION: Exam: XR Left Femur Exam date and time: 06/10/2022 4:35 PM Age: 86 years old Clinical indication: Other: Fall pain TECHNIQUE: Imaging protocol: Radiologic exam of the left femur. Views: 2 views. COMPARISON: CR XR PELVIS AP 06/10/2022 4:32 PM FINDINGS: Bones/joints: Degenerative changes noted in the knee. Bony alignment is anatomic without evidence for fracture or dislocation. Soft tissues: Unremarkable. Vasculature: Vascular calcifications consistent with atherosclerotic change noted. IMPRESSION: No evidence for fracture. Dictated and Authenticated by: Macarena Rodriguez MD. Ordering:PEGGY Juarez MD
--- NOTE | 2022-06-10 17:07 | DI.VRAD_ITS ---
PROCEDURE INFORMATION: Exam: XR Chest Exam date and time: 06/10/2022 4:51 PM Age: 86 years old Clinical indication: Other: Fall, ? pneumonia TECHNIQUE: Imaging protocol: Radiologic exam of the chest. Views: 2 views. COMPARISON: CT HEAD CERVICAL SPINE WO 06/10/2022 4:01 PM FINDINGS: Lungs: There is some patchy ill-defined opacity seen in the left upper lobe partially superimposed over the scapula. Minimal left pleural apical thickening is noted. Pleural spaces: See Lungs finding. Heart/Mediastinum: Unremarkable. No cardiomegaly. Bones/joints: There is fairly significant thoracic levoscoliosis. IMPRESSION: Mild distortion from levoscoliosis. Possible early consolidation left upper lobe. Dictated and Authenticated by: Macarena Rodriguez MD. Ordering:PEGGY Juarez MD
[2022-06-10 17:57] LABS: Troponin I 221 ng/L (<or=60)
[2022-06-10] MEDS: Acetaminophen 500 MG TAB 1000 MG PO (18:37)
--- NOTE | 2022-06-10 18:48 | HPE_ITS ---
Date of service: 06/10/22 Time of Service: 18:48 Assessment and Plan Assessment and plan (1) Rhabdomyolysis: Status: Acute Assessment and plan: CK down from 2267 I&O Trop 244 then down to 221; check in AM Continue - NS 100 ML/h overnight I&O Found by neighbor on the floor, states leg gave out, no injury, but was unable to get off the floor for 4d (2) CAP (community acquired pneumonia): Status: Acute Assessment and plan: IS Acapella Ceftriaxone & Azithromycin Oxygen as needed - currently no oxygen requirement Tylenol for fever BC pending Urine strep legionella MRSA swab pending (3) Hypokalemia: Status: Acute Assessment and plan: 3.2 - repleted - monitor (4) Impaired gait and mobility: Status: Chronic Assessment and plan: Found by neighbor on the floor, states leg gave out, no injury, but was unable to get off the floor for 4d PT/OT (5) Fall: Status: Acute Assessment and plan: Right leg gave out Xray/CT - no injury (6) Blunt head trauma: Status: Acute Assessment and plan: C/A Ox4, no complaints, no LOC (7) Blunt traumatic injury of keubpgv-ujsmgqvs-tycjam region: Status: Acute Assessment and plan: C/A ox4 no LOC, (8) Essential hypertension: Status: Chronic Assessment and plan: Home meds - BP stable (9) DVT prophylaxis: Status: Acute Assessment and plan: Enoxaparin (10) Discharge planning issues: Status: Acute Assessment and plan: Home when stable ? Discussed with Dr Rodriguez History of Present Illness History of Present Illness Chief Complaint: Fall Narrative: This is an 86 YO female patient with pmhx of HTN, who had a neighbor who checks on her periodically found her on the floor this past , three days ago and called EMS. She presented to the [facility] ED, with complaint of her right leg giving out and causing her to fall. In the ED, she complained of hip pain and tailbone pain and was unable to get off the ground, denied loc. ?She arrived stable, CAOx4, speaking clearly. She complained of pain in her right hip with decreased range of motion due to pain. She had mild tenderness in the left lateral hip. Normal distal sensation and pulses, no tenderness elsewhere in the legs. She also had tenderness in the tailbone area, no palpable deformities or step offs. No abdomen or chest or upper back tenderness. Unclear etiology for her fall. She had no focal deficits on exam. Labs remarkable for WBC of 14, CPK over 2000, Troponin in the 200's, imaging all unremarkable other than possible left upper lobe consolidation.? Patient denied cough and fever; she had no chest pain or dyspnea. ?Ceftriaxone and azithromycin were administered as well as a litre of normal saline IV.? She was placed on observation status on the medical floor for hydration and monitoring. Review of Systems All systems reviewed & are unremarkable except as noted in HPI and below PFSH All Active Problems (Updated 06/10/22 @ 18:59 by Kathrin Berry NP) Hypokalemia (Acute) Discharge planning issues (Acute) DVT prophylaxis (Acute) CAP (community acquired pneumonia) (Acute) Fall (Acute) Blunt head trauma (Acute) Blunt traumatic injury of wixhklv-jlznmobe-xqfwrj region (Acute) Rhabdomyolysis (Acute) Impaired gait and mobility (Chronic ~2021) Assistive device Thoracic scoliosis (Chronic) Chronic hip pain (Chronic) Essential hypertension (Chronic 01/24/13) Medical History (Updated 06/10/22 @ 18:59 by Kathrin Berry NP) Acute pain of left hip Basal cell carcinoma (BCC) 04/15/19-Dr. Young R/O BCC vs SCCA right nasal bridge. await biposy [place] [address] Hector [place] [facility] [place] [facility] Cerebrovascular accident (CVA) (06/20/11) 2007 dysarthria and LUE weakness Chronic low back pain (10/22/15) Mgrn w aura wo [facility] mgrn (06/20/11) Osteoarth NOS-l/leg (06/20/11) Other and unspecified hyperlipidemia (07/23/12) PCEq 24.1%; declines statins Patient has active physician orders for life-sustaining treatment (POLST) form (~06/30/21) DNR/DNI Primary osteoarthritis of left hip Primary osteoarthritis of right hip (10/03/17) Raynaud's syndrome (06/20/11) Trochanteric bursitis, left hip (10/03/17) Injected: 02/10/2019 Surgical History (Updated 12/30/21 @ 14:49 by Claudia Pimentel NP) Extraction of cataract left 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 No problems noted. 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 Working smoke detector in home: Yes Fire extinguisher in home: Yes Carbon monox detector in home: Yes Do you feel safe at home: Yes Do you feel safe in your relationship?: Yes Meds Allergies and Home Medications Allergies Allergy/AdvReac Type Severity Reaction Status Date / Time local anesthesia Allergy Unknown Other (See Uncoded 06/10/22 18:08 Comment) Home Medications Medication Instructions Recorded Confirmed Type ftrvjfpryijn-Cg-kucm-minerals 18 1 ea PO DAILY 07/24/12 06/10/22 History mg-0.4 mg tablet (Women's Daily Multivitamin) aspirin 81 mg tablet,delayed 81 mg PO BID #80 tabs 02/14/18 06/10/22 Rx release ibuprofen 200 mg capsule 400 mg PO DAILY PRN 07/10/18 06/10/22 History calcium carbonate 500 mg calcium 500 mg PO DAILY PRN 12/29/20 06/10/22 History (1,250 mg) tablet (Calcium 500) acetaminophen 500 mg oral powder 500 mg PO TID 06/29/21 06/10/22 History packet (Tylenol Extra Strength) naproxen sodium 220 mg capsule 220 mg PO TID 06/29/21 06/10/22 History (Aleve) chlorthalidone 25 mg tablet 12.5 mg PO DAILY #45 tab-caps 04/10/22 06/10/22 Rx Exam Const General: no acute distress Orientation: alert HENMT Head: normal to inspection Ears: external ears normal General nose exam: external nose normal Mouth: moist mucous membranes Eyes General: appearance normal, both eyes and all related structures Neck Neck: normal visual inspection Resp Effort & Inspection: normal respiratory effort and able to speak in complete sen tences Auscultation: clear to auscultation bilaterally Cardio Jugular venous pressure: no JVD Rate: regular rate Heart Sounds: no murmurs GI Palpation: soft and nontender Skin General skin exam: no rashes or lesions noted Neuro General: patient alert and patient oriented x3 Extrem General: normal to inspection Psych Mental Status: mental status grossly normal Results Labs 06/10/22 15:05 06/10/22 15:05 Labs: Laboratory Results - last 24 hr 06/10/22 06/10/22 06/10/22 15:05 15:05 15:05 WBC 14.68 H RBC 5.48 H Hgb 17.3 H Hct 48.1 H MCV 88 MCH 31.6 MCHC 36.0 RDW 12.8 Plt Count 229 MPV 10.3 Immature Gran % 0.3 Neutrophils % 86.6 Lymphocytes % 4.6 Monocytes % 6.4 Eosinophils % 1.8 Basophils % 0.3 Nucleated RBC % 0.0 Absolute Neutrophils 12.71 H Absolute Lymphocytes 0.68 L Absolute Monocytes 0.94 H Absolute Eosinophils 0.26 Absolute Basophils 0.04 VBG pH VBG pCO2 VBG pO2 VBG HCO3 VBG Total CO2 VBG O2 Saturation VBG Base Excess Sodium 139 Potassium 3.2 L Chloride 99 Carbon Dioxide 31.8 Anion Gap 8.2 BUN 39 H Creatinine 0.8 Est GFR (CKD-EPI 2020) 72.61 Glucose 128 H Calcium 10.5 H Magnesium 2.2 Total Bilirubin 1.2 H AST 109 H ALT 58 Alkaline Phosphatase 110 Creatine Kinase 2267 H Troponin I 244 H* Total Protein 7.9 Albumin 4.0 TSH 0.82 Urine Color Urine Clarity Urine pH Ur Specific [place] Urine Protein Urine Ketones Urine Blood Urine Nitrite Urine Bilirubin Urine Urobilinogen Ur Leukocyte Esterase Urine RBC Urine WBC Ur Epithelial Cells Urine Crystals Urine Bacteria Urine Casts Urine Mucus Urine Other Ur Culture Indicated? Urine Glucose COVID-19 Source Nasopharynx SARS-CoV-2 (PCR) Negative Influenza Type A (PCR) Negative Influenza Type B (PCR) Negative RSV (PCR) Negative 06/10/22 06/10/22 06/10/22 15:05 16:10 17:26 WBC RBC Hgb Hct MCV MCH MCHC RDW Plt Count MPV Immature Gran % Neutrophils % Lymphocytes % Monocytes % Eosinophils % Basophils % Nucleated RBC % Absolute Neutrophils Absolute Lymphocytes Absolute Monocytes Absolute Eosinophils Absolute Basophils VBG pH 7.38 VBG pCO2 52 H VBG pO2 27 VBG HCO3 31 H VBG Total CO2 27 VBG O2 Saturation 49 VBG Base Excess 6 H Sodium Potassium Chloride Carbon Dioxide Anion Gap BUN Creatinine Est GFR (CKD-EPI 2020) Glucose Calcium Magnesium Total Bilirubin AST ALT Alkaline Phosphatase Creatine Kinase Troponin I 221 H* Total Protein Albumin TSH Urine Color Yellow Urine Clarity Clear Urine pH 6.5 Ur Specific [place] >= 1.030 H Urine Protein 30 H Urine Ketones 15 H Urine Blood Negative Urine Nitrite Negative Urine Bilirubin Negative Urine Urobilinogen 0.2 Ur Leukocyte Esterase Negative Urine RBC 0-2 Urine WBC 0-2 Ur Epithelial Cells Few Urine Crystals Negative Urine Bacteria Negative Urine Casts Negative Urine Mucus Negative Urine Other Negative Ur Culture Indicated? No Urine Glucose Negative COVID-19 Source SARS-CoV-2 (PCR) Influenza Type A (PCR) Influenza Type B (PCR) RSV (PCR) Last Vital Signs Pulse 74 06/10/22 17:50 Resp 22 06/10/22 17:50 BP 67/36 L 06/10/22 17:50 Time Spent Time spent with Patient: 40-54 minutes Time was spent: preparing to see the patient(eg.review tests), obtaining and/or reviewing separately otained hiistory, ordering medications,tests, procedures, referring, communicating with other health point of care specialist, indepentently interpreting results, counseling the patient and care coordination
[2022-06-10] MEDS: AZITHROMYCIN 500 MG in Normal Saline 250 ML 250 MG IVPB (18:49)
[2022-06-10] MEDS: POTASSIUM CHLORIDE 10 MEQ/100 ML BAG 100 MEQ IVPB ×3 (20:23→22:51)
[2022-06-10] MEDS: Normal Saline 1,000 ML 100 ML IV (20:24)
[2022-06-10 21:29] LABS: Troponin I 178 ng/L (<or=60)
[2022-06-10] MEDS: Ibuprofen 400 MG TAB PO (21:44)
[2022-06-10] MEDS: Potassium Chloride 20 MEQ TABCR 40 MEQ PO (21:44)
[2022-06-10] MEDS: Enoxaparin 40 MG/0.4 ML SYR SC (21:44)
[2022-06-10] MEDS: cefTRIAXone 2 GM/50 ML BAG IVPB (21:45)
[2022-06-11] VITALS (8 sets, daily range): BP systolic 127–176; BP diastolic 77–97; PULSE 65–102; RESP 16–20; TEMP 36.1–36.9; O2SAT 95–99
[2022-06-11] MEDS: POTASSIUM CHLORIDE 10 MEQ/100 ML BAG 100 MEQ IVPB (00:02)
[2022-06-11 06:32] LABS: Abs Immature Grans 0.03 10^3/uL (0.0-0.06); Absolute Basophil Count 0.01 10^3/uL (0.0-0.2); Absolute Eosinophil Count 0.04 10^3/uL (0.0-0.7); Absolute Lymphocyte Count 1.29 10^3/uL (1.2-3.4); Absolute Monocyte Count 0.84 10^3/uL (0.1-0.8); Absolute Neutrophil Count 6.81 10^3/uL (1.2-6.7); Basophils % 0.1; Eosinophils % 0.4; HCT 37.6 % (36.0-46.0); HGB 13.2 g/dL (11.2-15.7); Immature Grans % 0.3; Lymphocytes % 14.3; MCH 31.8 pg (27.0-33.0); MCHC 35.1 % (32.0-36.0); MCV 91 fL (80-95); Monocytes % 9.3; Neutrophils % 75.6; Platelet Count 176 10^3/uL (130-400); RBC 4.15 10^6/uL (3.93-5.22); RDW 13.2 % (11.7-14.6); RDW-SD 42.9 fL; WBC 9.02 10^3/uL (4.4-10.8)
[2022-06-11 07:01] LABS: Anion Gap 9.4 mmol/L (3-11); BUN 38 mg/dL (7-18); CO2 22.6 mmol/L (21.0-32.0); CREATININE 0.6 mg/dL (0.55-1.02); Calcium 8.9 mg/dL (8.5-10.1); Chloride 106 mmol/L (98-107); Estimated GFR 88.45 (mL/min/1.73m2); Glucose 79 mg/dL (74-106); Magnesium 1.9 mg/dL (1.8-2.4); Potassium 3.9 mmol/L (3.5-5.1); Sodium 138 mmol/L (136-145)
[2022-06-11 07:02] LABS: Creatine Kinase 1209 U/L (26-192)
[2022-06-11 07:05] LABS: Troponin I 109 ng/L (<or=60)
[2022-06-11] MEDS: Ibuprofen 400 MG TAB PO (07:59)
[2022-06-11] MEDS: Chlorthalidone 25 MG TAB 12.5 MG PO (08:00)
[2022-06-11] MEDS: Multivitamin TAB 1 TAB PO (08:00)
--- NOTE | 2022-06-11 08:56 | INITIAL_ITS ---
- If Service Date Differs Date of service: 06/11/22 Time of Service: 08:56 Care Management Initial Assess REASON FOR HOSPITALIZATION:: Rhabdomyolosis PAST MEDICAL HISTORY/PAST SURGICAL HISTORY:: All Active Problems (Updated 06/10/22 @ 18:59 by Kathrin Berry NP). Hypokalemia (Acute). Discharge planning issues (Acute). DVT prophylaxis (Acute). CAP (community acquired pneumonia) (Acute). Fall (Acute). Blunt head trauma (Acute). Blunt traumatic injury of dswbghj-itnvgfby-ludgmg region (Acute). Rhabdomyolysis (Acute). Impaired gait and mobility (Chronic ~2021). Assistive device. Thoracic scoliosis (Chronic). Chronic hip pain (Chronic). Essential hypertension (Chronic 01/24/13). Medical History (Updated 06/10/22 @ 18:59 by Kathrin Berry NP). Acute pain of left hip. Basal cell carcinoma (BCC). 04/15/19-Dr. Young R/O BCC vs SCCA right nasal bridge. await biposy result in [address] Hector MD [facility] [place] derm. Cerebrovascular accident (CVA) (06/20/11). 2007 dysarthria and LUE weakness. Chronic low back pain (10/22/15). Mgrn w aura wo [facility] mgrn (06/20/11). Osteoarth NOS-l/leg (06/20/11). Other and unspecified hyperlipidemia (07/23/12). PCEq 24.1%; declines statins. Patient has active physician orders for life-sustaining treatment (POLST) form (~06/30/21). DNR/DNI. Primary osteoarthritis of left hip. Primary osteoarthritis of right hip (10/03/17). Raynaud's syndrome (06/20/11). Trochanteric bursitis, left hip (10/03/17). Injected: 02/10/2019. Surgical History (Updated 12/30/21 @ 14:49 by Claudia Pimentel NP). Extraction of cataract. left. 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 S/P: 02/12/2018. Aspiration: 07/25/2018. Replacement of total knee joint. right knee Dr Rizzo. Status post hip replacement (02/12/18). Right PREVIOUS FUNCTIONAL STATUS/SOCIAL/FAMILY SUPPORTS:: Marilee lives in alone in [place]. She has very supportive neighbors, but no children or family. She describes herself as an independent woman. She is independent with her ADL's and in the community. She drives and does her own grocery shopping and cooking. At most, she may ask a stockroom associate to help her get her walker out of her car trunk, and notes that she can manage everything else. CURRENT FUNCTIONAL STATUS:: Marilee is sitting up in her chair when CM met with her. She is awake, pleasant and easily engages in conversation. Marilee feels that she can manage all things by herself at home and within the community. Per pt, if she needs help she will ask and identifies that her neighbors are supportive and check on her frequently. Marilee is not interested in caregiver support or information on COA services. Although, she is interested in [employer], and wants to call the company herself. CM provided patient with a [facility] brochure. CM will continue to support patient and her discharge planning considerations. ADVANCE DIRECTIVES:: On file, [facility] Brad Roberto, Alt[facility] Joshua Crain Has patient been provided with info about the portal/API?: Yes Did the patient sign up for the portal?: Yes (Prior to admission) CODE STATUS:: DNR/DNI ([facility] on file) INSURANCE COVERAGE / FINANCIAL ISSUES:: BC/BS. Medicare CURRENT HOME/COMMUNITY SERVICES/EQUIPMENT:: Walker PRIMARY CARE PHYSICIAN:: Claudia Pimentel POTENTIAL DISCHARGE NEEDS:: New [facility] PT/OT (if indicated). Evaluations for further needs-declines caregiver support. Referral to COA-declines referral. [employer]- Very interested and accepted a brochure. PATIENT/FAMILY EDUCATION NEEDS:: Review discharge instructions, limitations, medications and plan to follow up with community providers. Discuss ask me three and goals of self care. TRANSPORTATION:: Via private vehicle with her neighbor. PLAN:: Anticipate, Marilee will discharge home with New [facility] PT/OT, when medically ready per provider. She will transport via private vehicle with her neighbor. She will follow up with community providers and discharge plan of care as prescribed.
--- NOTE | 2022-06-11 11:45 | IN_ITS ---
PT Notes Visit Reasons: Rhabdomyolysis Inpatient Physical Therapy Evaluation Date: [06/11/2022] Referring Doctor: Kathrin Berry NP PT Orders: PT CONSULT: evaluation Precautions: standard, fall risk Patient Profile/Admitting Diagnosis: Patient is an 86-year-old female presenting to ED after a fall at home due to weakness and was unable to get up and remained on the floor x3 days. She had the first fall in which she felt her right leg give way and fell onto her right side but was able to get back up by crawling to furniture and climbing back up using her upper extremity on the second fall she fell more onto her tailbone and had increased pain with her tailbone and was unable to get back up. She is admitted with rhabdomyolysis, community-acquired pneumonia, impaired ambulatory and mobility status. PMHX: []All Active Problems?(Updated 06/10/22 @ 18:59 by Kathrin Berry NP) Hypokalemia (Acute) Discharge planning issues (Acute) DVT prophylaxis (Acute) CAP (community acquired pneumonia) (Acute) Fall (Acute) Blunt head trauma (Acute) Blunt traumatic injury of eetvkrl-tiolbasu-lzxwpv region (Acute) Rhabdomyolysis (Acute) Impaired gait and mobility (Chronic ~2021) Assistive deviceThoracic scoliosis (Chronic) Chronic hip pain (Chronic) Essential hypertension (Chronic 01/24/13) Social History/Home Situation: [] Patient lives alone with 3 steps getting into home she typically maneuver sideways to navigate the stairs. In her home she uses a four-wheel rolling walker, in the community she uses a 3 wheeled rolling walker as she is able to put this in her vehicle. She does also own a standard rolling walker. She currently takes baths and does not have hookup for a shower. She does state that she has grab bars and she is normally able to get in and out of the bathtub independently. She states that this was a good learning experience and will get a alert button so that she would not be on the floor for extended periods of time. We also discussed her utilizing the rolling walker and not relying on furniture for ambulation although she states that she gets into the kitchen and works along the counter she also reaches up to the top shelf she has been advised to move things down to lower levels. Current Functional Limitations: Unsteady with ambulation with RW and increased pain primarily in the tailbone Equipment Owned/DME: Four-wheel RW, 3 wheeled RW, RW Subjective: Objective: General Observation: Patient is sitting alert and orientated with a smile on her face. She does have a [place] in and IVs as well as multiple bruises on the center of her upper back, both hips and upper extremity particularly left. Mental Status: A&O x4 Pain: 3?4/10 primarily tailbone Vital Signs: Recently taken by hospital staff ROM: Right Upper Extremity: WFL Left Upper Extremity: WFL Right Lower Extremity: WFL Left Lower Extremity: WFL Strength: Right Upper Extremity: WFL Left Upper Extremity: WFL Right Lower Extremity: WFL Left Lower Extremity: WFL Sensation: Intact to light touch both LE Bed Mobility/Transfers: Not observed in bed patient states that she is able to maneuver in bed however it is somewhat of a struggle and takes a fair amount of time. Sit to stand chair to rolling walker independent with minimal VC Stand to sit rolling walker to chair independent with minimal VC Gait: Ambulates with RW with VC for sequencing and maintaining position within the walker she does have a tendency to pick the walker up when turning but with VC she does not continue to do this. This may be in part because she is used to using a four-wheel or 3 wheel RW. Ambulation with close guard x40 feet Balance: Static Sitting: Normal Dynamic Sitting: Normal Static Standing: Fair when not holding onto walker good when holding onto walker Dynamic Standing: Unable to march in place without holding onto walker poor dynamic standing without support with support fair Special Tests: Mobility Limitations Standardized Measure [facility]-PAC 6 clicks Basic Mobility Inpatient Short Form: Raw Score: 18 Standardized Score: 43.63 CMS Score: 46.58 Informed Consent/Education: Patient instructed in purpose of PT consult and plan of care. Assessment: Patient is a 86year old female referred to physical therapy services with the diagnosis of rhabdomyolysis, history of fall and unsteady gait. Patient presents with clinical signs and symptoms consistent with MD diagnosis, as demonstrated by the following impairment level findings: Unsteady gait, requires assistive device, poor balance unable to stand on single-leg without holding on.. Impairments are contributing to the following functional limitations: AMPAC score. Treatment:69351 therapeutic procedures: 8' Instructed in LAQ,x10 ankle [id number] and [id number]. Sit to stand x3 after IE, standing marching in place with light hold 3sets 5 marches, standing without holding on x 5 sec 2x, calf raises x5, toe raises x5. Patient is assessed as a Low 74090 complexity based on the following: History: As outlined above Examination: As outlined above Presentation: Stable Decision Making: Low Goals: Goals X1 week 1. Supine-Sit independent 2. Sit-Supine independent 3. Sit-Stand independent 4. Stand-Sit independent 5. Bed-Chair independent 6. Chair-Bed independent 7. Gait ambulation with RW without need for VC for proper safety x100 feet 8. Stairs with supervision 9. Independent with home exercise program 10. Balance improved to fair or good able to stand without holding onto RW x10 seconds, able to march in place without holding onto RW x3 steps Plan of Care/Treatment Plan: 1-2x/day, 7 days/week x 1 week. Plan of care has been reviewed with the [employer] providing the service under Physical Therapy direction. Initiate Physical Therapy intervention for strengthening, bed mobility, transfers, gait, stairs, balance training, use of assistive device. DISCHARGE RECOMMENDATIONS: [] Home with no services [] [x] Home with services [PT/OT for safety and ADL's as well as household mobility] [] Home with outpatient PT [] [] SNF for continued rehabilitation [] [] [facility] [] [] SNF versus LTC based on ability to participate and progress [] TREATMENT CODE/TIME: []02436, 69803
--- NOTE | 2022-06-11 14:34 | PGE_ITS ---
Date of Service Date of service: 06/11/22 Time of Service: 14:34 Assessment and Plan Assessment and plan (1) Rhabdomyolysis: Status: Acute Assessment and plan: CK down from 2267 to 1209 - continue IVF I&O Trop 244 then down to 221; today 109 Continue - NS 100 ML/h overnight I&O Found by neighbor on the floor, states leg gave out, no injury, but was unable to get off the floor for 4d (2) CAP (community acquired pneumonia): Status: Acute Assessment and plan: IS Acapella Ceftriaxone & Azithromycin Oxygen as needed - currently no oxygen requirement Tylenol for fever BC Urine strep legionella MRSA swab (3) Hypokalemia: Status: Acute Assessment and plan: 3.9 - monitor (4) Impaired gait and mobility: Status: Chronic Assessment and plan: Found by neighbor on the floor, states leg gave out, no injury, but was unable to get off the floor for 4d PT/OT (5) Fall: Status: Acute Assessment and plan: Right leg gave out Xray/CT - no injury (6) Blunt head trauma: Status: Acute Assessment and plan: C/A Ox4, no complaints, no LOC (7) Blunt traumatic injury of onomawq-mvvajvbi-mdfthe region: Status: Acute Assessment and plan: C/A ox4 no LOC, (8) Essential hypertension: Status: Chronic Assessment and plan: Home meds - BP stable (9) DVT prophylaxis: Status: Acute Assessment and plan: Enoxaparin (10) Discharge planning issues: Status: Acute Assessment and plan: Home when stable ?HH Discussed with Dr Rodriguez Subjective Subjective Patient reports: no new complaints, pain is less, tolerating a regular diet, voiding w/o difficulty, bowel movement and afebrile; denies nausea Exam Const General: no acute distress Orientation: alert HENMT Head: normal to inspection Ears: external ears normal General nose exam: external nose normal Mouth: moist mucous membranes Eyes General: appearance normal, both eyes and all related structures Neck Neck: normal visual inspection Resp Effort & Inspection: normal respiratory effort and able to speak in complete sentences Auscultation: clear to auscultation bilaterally Cardio Jugular venous pressure: no JVD Rate: regular rate Heart Sounds: no murmurs GI Palpation: soft and nontender Skin General skin exam: no rashes or lesions noted Neuro General: patient alert and patient oriented x3 Extrem General: normal to inspection Psych Mental Status: mental status grossly normal Objective Last Vital Signs Temp 36.9 C 06/11/22 12:20 Pulse 66 06/11/22 12:20 Resp 18 06/11/22 12:20 BP 137/88 06/11/22 12:20 Pulse Ox 98 06/11/22 12:20 Laboratory Results - last 24 hr 06/10/22 06/10/22 06/10/22 15:05 15:05 15:05 WBC 14.68 H RBC 5.48 H Hgb 17.3 H Hct 48.1 H MCV 88 MCH 31.6 MCHC 36.0 RDW 12.8 Plt Count 229 MPV 10.3 Immature Gran % 0.3 Neutrophils % 86.6 Lymphocytes % 4.6 Monocytes % 6.4 Eosinophils % 1.8 Basophils % 0.3 Nucleated RBC % 0.0 Absolute Neutrophils 12.71 H Absolute Lymphocytes 0.68 L Absolute Monocytes 0.94 H Absolute Eosinophils 0.26 Absolute Basophils 0.04 VBG pH VBG pCO2 VBG pO2 VBG HCO3 VBG Total CO2 VBG O2 Saturation VBG Base Excess Sodium 139 Potassium 3.2 L Chloride 99 Carbon Dioxide 31.8 Anion Gap 8.2 BUN 39 H Creatinine 0.8 Est GFR (CKD-EPI 2020) 72.61 Glucose 128 H Calcium 10.5 H Magnesium 2.2 Total Bilirubin 1.2 H AST 109 H ALT 58 Alkaline Phosphatase 110 Creatine Kinase 2267 H Troponin I 244 H* Total Protein 7.9 Albumin 4.0 TSH 0.82 Urine Color Urine Clarity Urine pH Ur Specific [place] Urine Protein Urine Ketones Urine Blood Urine Nitrite Urine Bilirubin Urine Urobilinogen Ur Leukocyte Esterase Urine RBC Urine WBC Ur Epithelial Cells Urine Crystals Urine Bacteria Urine Casts Urine Mucus Urine Other Ur Culture Indicated? Urine Glucose COVID-19 Source Nasopharynx SARS-CoV-2 (PCR) Negative Influenza Type A (PCR) Negative Influenza Type B (PCR) Negative RSV (PCR) Negative 06/10/22 06/10/22 06/10/22 15:05 16:10 17:26 WBC RBC Hgb Hct MCV MCH MCHC RDW Plt Count MPV Immature Gran % Neutrophils % Lymphocytes % Monocytes % Eosinophils % Basophils % Nucleated RBC % Absolute Neutrophils Absolute Lymphocytes Absolute Monocytes Absolute Eosinophils Absolute Basophils VBG pH 7.38 VBG pCO2 52 H VBG pO2 27 VBG HCO3 31 H VBG Total CO2 27 VBG O2 Saturation 49 VBG Base Excess 6 H Sodium Potassium Chloride Carbon Dioxide Anion Gap BUN Creatinine Est GFR (CKD-EPI 2020) Glucose Calcium Magnesium Total Bilirubin AST ALT Alkaline Phosphatase Creatine Kinase Troponin I 221 H* Total Protein Albumin TSH Urine Color Yellow Urine Clarity Clear Urine pH 6.5 Ur Specific [place] >= 1.030 H Urine Protein 30 H Urine Ketones 15 H Urine Blood Negative Urine Nitrite Negative Urine Bilirubin Negative Urine Urobilinogen 0.2 Ur Leukocyte Esterase Negative Urine RBC 0-2 Urine WBC 0-2 Ur Epithelial Cells Few Urine Crystals Negative Urine Bacteria Negative Urine Casts Negative Urine Mucus Negative Urine Other Negative Ur Culture Indicated? No Urine Glucose Negative COVID-19 Source SARS-CoV-2 (PCR) Influenza Type A (PCR) Influenza Type B (PCR) RSV (PCR) 06/10/22 06/11/22 06/11/22 21:00 05:50 05:50 WBC 9.02 RBC 4.15 Hgb 13.2 D Hct 37.6 MCV 91 MCH 31.8 MCHC 35.1 RDW 13.2 Plt Count 176 MPV 12.0 H Immature Gran % 0.3 Neutrophils % 75.6 Lymphocytes % 14.3 Monocytes % 9.3 Eosinophils % 0.4 Basophils % 0.1 Nucleated RBC % 0.0 Absolute Neutrophils 6.81 H Absolute Lymphocytes 1.29 Absolute Monocytes 0.84 H Absolute Eosinophils 0.04 Absolute Basophils 0.01 VBG pH VBG pCO2 VBG pO2 VBG HCO3 VBG Total CO2 VBG O2 Saturation VBG Base Excess Sodium 138 Potassium 3.9 Chloride 106 Carbon Dioxide 22.6 Anion Gap 9.4 BUN 38 H Creatinine 0.6 Est GFR (CKD-EPI 2020) 88.45 Glucose 79 Calcium 8.9 Magnesium 1.9 Total Bilirubin AST ALT Alkaline Phosphatase Creatine Kinase 1209 H Troponin I 178 H* 109 H* Total Protein Albumin TSH Urine Color Urine Clarity Urine pH Ur Specific [place] Urine Protein Urine Ketones Urine Blood Urine Nitrite Urine Bilirubin Urine Urobilinogen Ur Leukocyte Esterase Urine RBC Urine WBC Ur Epithelial Cells Urine Crystals Urine Bacteria Urine Casts Urine Mucus Urine Other Ur Culture Indicated? Urine Glucose COVID-19 Source SARS-CoV-2 (PCR) Influenza Type A (PCR) Influenza Type B (PCR) RSV (PCR) Time Spent with Patient Time Spent with Patient: <25 minutes Time was spent: preparing to see the patient(eg.review tests), ordering medications,tests, procedures, referring, communicating with other health memory care program resident, indepentently interpreting results, counseling the patient and care coordination
[2022-06-11 17:44] LABS: Legionella Ag Detection Urine Negative (Negative)
[2022-06-11] MEDS: Enoxaparin 40 MG/0.4 ML SYR SC (18:22)
[2022-06-11] MEDS: Normal Saline 1,000 ML 100 ML IV (18:25)
[2022-06-12 00:07] VITALS: PULSE 73
[2022-06-12] MEDS: Normal Saline 1,000 ML 100 ML IV (03:16)
[2022-06-12 03:25] VITALS: BP 166/82; PULSE 95; RESP 16; TEMP 36.9; O2SAT 96
[2022-06-12 06:31] LABS: Abs Immature Grans 0.05 10^3/uL (0.0-0.06); Absolute Basophil Count 0.04 10^3/uL (0.0-0.2); Absolute Eosinophil Count 0.11 10^3/uL (0.0-0.7); Absolute Lymphocyte Count 1.02 10^3/uL (1.2-3.4); Absolute Monocyte Count 0.58 10^3/uL (0.1-0.8); Absolute Neutrophil Count 3.96 10^3/uL (1.2-6.7); Basophils % 0.7; Eosinophils % 1.9; HCT 33.2 % (36.0-46.0); HGB 12.2 g/dL (11.2-15.7); Immature Grans % 0.9; Lymphocytes % 17.7; MCH 33.1 pg (27.0-33.0); MCHC 36.7 % (32.0-36.0); MCV 90 fL (80-95); MPV 11.1 fL (8.0-11.0); Monocytes % 10.1; Neutrophils % 68.7; Platelet Count 154 10^3/uL (130-400); RBC 3.69 10^6/uL (3.93-5.22); RDW 13.1 % (11.7-14.6); WBC 5.76 10^3/uL (4.4-10.8)
[2022-06-12 06:36] VITALS: BP 162/76; PULSE 80; RESP 16; TEMP 36.5; O2SAT 96
[2022-06-12 06:52] LABS: Anion Gap 5.7 mmol/L (3-11); BUN 17 mg/dL (7-18); CO2 28.3 mmol/L (21.0-32.0); CREATININE 0.6 mg/dL (0.55-1.02); Calcium 8.6 mg/dL (8.5-10.1); Chloride 109 mmol/L (98-107); Creatine Kinase 501 U/L (26-192); Estimated GFR 88.45 (mL/min/1.73m2); Glucose 96 mg/dL (74-106); Magnesium 1.7 mg/dL (1.8-2.4); Potassium 3.1 mmol/L (3.5-5.1); Sodium 143 mmol/L (136-145)
[2022-06-12 07:49] VITALS: PULSE 77
[2022-06-12 08:00] VITALS: RESP 18; O2SAT 96
[2022-06-12] MEDS: Chlorthalidone 25 MG TAB 12.5 MG PO (08:27)
[2022-06-12] MEDS: Ibuprofen 400 MG TAB PO (08:28)
[2022-06-12] MEDS: Multivitamin TAB 1 TAB PO (08:29)
--- NOTE | 2022-06-12 08:45 | CMPROGNOTE_ITS ---
- If Service Date Differs Date of service: 06/12/22 Time of Service: 08:45 Care Management Progress Note S/O: A: 86 year old female admitted to [facility] on 06/10/22 for Rhabdomylosis P: Anticipate, Marilee will discharge home with New [facility] PT/OT, when medically ready per provider. She will transport via private vehicle with her neighbor. She will follow up with community providers and discharge plan of care as prescribed.
[2022-06-12] MEDS: Potassium Chloride 20 MEQ TABCR 40 MEQ PO (09:03)
[2022-06-12] MEDS: MAGNESIUM SULFATE 2 GM/50 ML BAG IVPB (09:03)
[2022-06-12 11:08] VITALS: BP 135/80; PULSE 88; RESP 17; TEMP 36.7; O2SAT 97
--- NOTE | 2022-06-12 11:39 | W.PM.DS.N ---
Date of service: 06/12/22 Time of Service: 11:39 DS: Diagnosis Discharge Diagnosis (1) Rhabdomyolysis: Status: Acute (2) CAP (community acquired pneumonia): Status: Acute (3) Hypokalemia: Status: Acute (4) Impaired gait and mobility: Status: Chronic (5) Fall: Status: Acute (6) Blunt head trauma: Status: Acute (7) Blunt traumatic injury of dwzevcq-ywllzdxk-yhvuvg region: Status: Acute (8) Essential hypertension: Status: Chronic (9) DVT prophylaxis: Status: Acute (10) Discharge planning issues: Status: Acute Discharge Plan Disposition Patient Disposition: Home W/Home Health Services Condition: Fair Discharge Details Reason For Visit: Rhabdomyolysis Admit Date/Time: 06/10/22 17:09 Admit Provider: Brad Rodriguez Attending Provider: Brad Rodriguez Primary Care Provider: Claudia Pimentel Hospital Course Hospital Course: This is an 86 YO female patient with pmhx of HTN, whose neighbor that checks on her periodically found her on the floor this past , 06/08/2022, three days prior to admission on 06/11/2022 and called EMS. She presented to the [facility] ED, with complaint of her right leg giving out and causing her to fall. In the ED, she complained of hip pain and tailbone pain and was unable to get off the ground, denied loc. Unclear etiology for her fall. CPK over 1999, Troponin in the 200's, imaging all unremarkable other than possible left upper lobe consolidation.? Patient denied cough and fever; she had no chest pain or dyspnea. ?Ceftriaxone and azithromycin were administered as well as a litre of normal saline IV.? She was placed on observation status on the medical floor for hydration and monitoring.? Her CK came down to 501 and her troponin trended down.? Her potassium and magnesium were low, they were repleted and a BMP/Mag is ordered for 06/16/2022, will ask HH to draw and provide teaching for medication and diet. Patient reports taking Naprosyn and Tylenol daily. 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 Home Meds and New Rx's Prescriptions: New potassium chloride 20 mEq tablet extended release 20 meq PO BID Qty: 30 0RF magnesium chloride 64 mg magnesium tablet 64 mg PO DAILY Qty: 30 0RF Continued calcium carbonate [Calcium 500] 500 mg calcium (1,250 mg) tablet 500 mg PO DAILY PRN naproxen sodium [Aleve] 220 mg capsule 220 mg PO TID ibuprofen 200 mg capsule 400 mg PO DAILY PRN Tylenol Extra Strength 500 mg powder in packet 500 mg PO TID Women's Daily Multivitamin 1 EACH tablet 1 ea PO DAILY chlorthalidone 25 mg tablet 12.5 mg PO DAILY Qty: 45 3RF aspirin 81 mg Tablet,Delayed Release (Dr/Ec) 81 mg PO BID Qty: 80 0RF Discharge Instructions Instructions: Potassium Chloride (By mouth), Hypokalemia (DC), Rhabdomyolysis (DC), Hypomagnesemia (DC) Additional Instructions: Start Potassium 20 meq twice daily for low potassium levels. Start Magnesium 64 mg one daily. Have labs checked 06/16/2022. Follow up with PCP. Home Health will call and arrange a time to come to your home and start services. Referrals: Claudia Pimentel EXECUTIVE SALES MANAGER [Primary Care Provider] - (1-2 weeks) Activity:: Activity as Tolerated Equipment/Supplies:: No Equipment Needed Diet:: Low Sodium Discharge Orders Discharge Orders: Discharge Order (Routine); Ordered 06/12/22 Ordered By: Kathrin Berry Other Ambulatory Orders: Basic Metabolic Panel (Routine) Timeframe: 20220616 Location: None Selected Ordered By: Kathrin Berry Magnesium (Routine) Timeframe: 20220616 Location: None Selected Ordered By: Kathrin Berry DS: Summary Time Spent with Patient providing and/or coordinating discharge services: Greater than 30 minutes Status at Discharge Functional status at discharge: independent ambulation Overall status at discharge: patient is progressing back to baseline Mental Status: mental status grossly normal Speech and Movement: speech and movement normal Mood: congruent mood Affect: normal affect Exam Psych Mental Status: mental status grossly normal Speech and Movement: speech and movement normal Mood: congruent mood Affect: normal affect DS: Data Vitals/I&O Vitals and I&O: Vital Signs Temperature 36.7 C 06/12/22 11:08 Temperature Source Tympanic 06/12/22 11:08 Pulse 88 06/12/22 11:08 Pulse Rhythm Regular 06/12/22 08:00 Pulse 103 H 06/10/22 17:50 Respiratory Rate 17 06/12/22 11:08 Respiratory Effort Normal, Non-Labored 06/12/22 08:00 Respiratory Depth Normal 06/12/22 08:00 Respiratory Pattern Normal 06/12/22 08:00 Blood Pressure 135/80 06/12/22 11:08 Blood Pressure Mean 44 06/10/22 17:50 Pulse Oximetry 97 06/12/22 11:08 Oxygen Delivery Method Room Air 06/12/22 11:08 Oxygen Flow Rate 0 06/12/22 11:08 Pain Level 0 06/11/22 15:00 Intake & Output 06/11/22 06/11/22 06/12/22 11:59 23:59 11:59 Intake Total 1010 / 1250 240 / 1250 1295 / 1295 Output Total 100 / 425 325 / 425 2250 / 2250 Balance 910 / 825 -85 / 825 -955 / -955 Weight 56.3 kg 60.1 kg Intake: IV 1010 / 1010 895 / 895 Oral 240 / 240 400 / 400 Output: Urine 100 / 425 325 / 425 2250 / 2250 Other: Urine Color Yellow Yellow Yellow Urine Appearance Clear Clear Clear Stool Size Moderate Stool Characteristics Formed Formed Data Completed and Pending Labs on day of discharge: Labs from last 24 hours 06/12/22 06/12/22 06/10/22 05:53 05:53 22:05 WBC 5.76 RBC 3.69 L Hgb 12.2 Hct 33.2 L MCV 90 MCH 33.1 H MCHC 36.7 H RDW 13.1 Plt Count 154 MPV 11.1 H Immature Gran % 0.9 Neutrophils % 68.7 Lymphocytes % 17.7 Monocytes % 10.1 Eosinophils % 1.9 Basophils % 0.7 Nucleated RBC % 0.0 Absolute Neutrophils 3.96 Absolute Lymphocytes 1.02 L Absolute Monocytes 0.58 Absolute Eosinophils 0.11 Absolute Basophils 0.04 Sodium 143 Potassium 3.1 L Chloride 109 H Carbon Dioxide 28.3 Anion Gap 5.7 BUN 17 Creatinine 0.6 Est GFR (CKD-EPI 2020) 88.45 Glucose 96 Calcium 8.6 Magnesium 1.7 L Creatine Kinase 501 H Urine Legionella Ag Negative 06/11/22 14:01 Nose MRSA Screen - Pending Preliminary micro results at discharge 06/10/22 18:00 Blood Culture - Preliminary Blood NO GROWTH 24 HOURS 06/10/22 17:26 Blood Culture - Preliminary Blood NO GROWTH 24 HOURS 06/11/22 14:01 MRSA Screen - Pending Nose PFSH All Active Problems (Updated 06/12/22 @ 11:20 by Kathrin Berry NP) Hypomagnesemia (Acute) Hypokalemia (Acute) Discharge planning issues (Acute) DVT prophylaxis (Acute) CAP (community acquired pneumonia) (Acute) Fall (Acute) Blunt head trauma (Acute) Blunt traumatic injury of sovesqa-tlvuxtzg-xsefox region (Acute) Rhabdomyolysis (Acute) Impaired gait and mobility (Chronic ~2021) Assistive device Thoracic scoliosis (Chronic) Chronic hip pain (Chronic) Essential hypertension (Chronic 01/24/13) Medical History (Updated 06/12/22 @ 11:20 by Kathrin Berry NP) Acute pain of left hip Basal cell carcinoma (BCC) 04/15/19-Dr. Young R/O BCC vs SCCA right nasal bridge. await biposy result in [address] 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) Osteoarth NOS-l/leg (06/20/11) Other and unspecified hyperlipidemia (07/23/12) PCEq 24.1%; declines statins Patient has active physician orders for life-sustaining treatment (POLST) form (~06/30/21) DNR/DNI Primary osteoarthritis of left hip Primary osteoarthritis of right hip (10/03/17) Raynaud's syndrome (06/20/11) Trochanteric bursitis, left hip (10/03/17) Injected: 02/10/2019 Surgical History (Updated 12/30/21 @ 14:49 by Claudia Pimentel NP) Extraction of cataract left 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 No problems noted. 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 sulky driver: No Working smoke detector in home: Yes Fire extinguisher in home: Yes Carbon monox detector in home: Yes Do you feel safe at home: Yes Do you feel safe in your relationship?: Yes Time Spent with Patient Time Spent with Patient: 45-69 minutes Time was spent: preparing to see the patient(eg.review tests), ordering medications,tests, procedures, referring, communicating with other health career and transition teacher, indepentently interpreting results, counseling the patient and care coordination
--- NOTE | 2022-06-12 11:40 | PDOC.HHF2F ---
Home Health Referral Home Health Orders Clinical synopsis of why skilled professionals are needed: This is an 86 YO female patient with pmhx of HTN, whose neighbor that checks on her periodically found her on the floor this past , 06/08/2022, three days prior to admission on 06/11/2022 and called EMS. She presented to the [facility] ED, with complaint of her right leg giving out and causing her to fall. In the ED, she complained of hip pain and tailbone pain and was unable to get off the ground, denied loc. Unclear etiology for her fall. CPK over 1999, Troponin in the 200's, imaging all unremarkable other than possible left upper lobe consolidation.? Patient denied cough and fever; she had no chest pain or dyspnea. ?Ceftriaxone and azithromycin were administered once as well as a litre of normal saline IV.? She was placed on observation status on the medical floor for hydration and monitoring. Her lungs remained clear, afebrile. ?Her CK came down to 501 and her troponin trended down.? Her potassium and magnesium were low, they were repleted and a BMP/Mag is ordered for 06/16/2022, will ask HH to draw and provide teaching for medication and diet. 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 ? Medical diagnosis necessitation home health referral: Rhabdomyolosis; Hypokalemia; Hypomagnesemia Registered Nurse: Check all that apply Instruct on new or changed medication(s)/assess compliance: Ordered Other: BMP/Mag 06/16/2022 Physical Therapist: Check all that apply Increase strength & endurance for safe mobility at home: Ordered To design/establish home maintenance program: Ordered Fall reduction therapy program for patient with history of frequent falls: Ordered Home safety evaluation and teaching/gait training including stair management (if applicable): Ordered Occupational Therapist: Evaluate and treat for patient unable to perform ADL/IADL/self-care: Ordered Upper extremity strengthening, range and motion: Ordered Lumber Stacker: Other: Patient declined Home Bound Status Requires the aid of supportive device (check all that apply): Walker Patient has a condition such that leaving home is medically contraindicated (Describe): Weak, ambulatory dysfunction Describe why leaving home would require a considerable and taxing effort: Requires frequent rest periods and Safety Concerns: describe (uneven ground) Encounter Date and Reason: I certify that a FTF encounter for this patient was performed on June 12, 2022 and that such encounter was related to the primary reason the patient requires home health services. The encounter was conducted in the following manner: By me as the certifying physician, ABALONE SHELLER, PA or By an inpatient physician, ABALONE SHELLER or PA during an inpatient stay who communicated findings to me, Certification And Authentication I certify that I composed the above information based on my clinical judgment relating to this patient's medical condition and, if applicable, clinical findings communicated to me by the NPP or inpatient physician who performed the FTF encounter. Name of Provider that will be monitoring home health services: Claudia Pimentel
--- NOTE | 2022-06-12 11:53 | CMDISCH_ITS ---
- If Service Date Differs Date of service: 06/12/22 Time of Service: 11:53 LACE Index Scoring Tool - Questions: Length of Stay (in days): 2 Acuity (Admit via E.D.?): Yes Comorbidities: Cerebrovascular Disease E.D. Visits: 1 - Answers: Total Score: 7 Risk of Readmission: Low Risk Care Management Discharge Reason for Hospitalization: Rhabdomyolosis Discharge Plan: Marilee is discharged home with New [facility] RN/PT/OT. She is transported via private vehicle with her friend. She will follow up with community providers and discharge plan of care as prescribed. She is interested in subscribing to [employer] and wants to contact them personally at a later time. Patient/Family Education Needs: Review discharge instructions, limitations, medications and plan to follow up with community providers. Review ask me three and goals of self care. Services Needed at Discharge: Home Health Care Services (New [facility] RN/PT/OT, CM notified [facility]. )
--- NOTE | 2022-06-12 13:53 | NUR.NOTE ---
Patient was discharged as per MD order. Linn & PIV were removed without complications. PT voided & had a BM post removal. Discharge instructions were reviewed with patient & all questions & or concerns were addressed. PT was taken out of hospital via WC & assisted to car. Nursing Note:
--- NOTE | 2022-06-12 17:17 | PT.INDS ---
Date of service: 06/12/22 Time of Service: 09:49 PT Notes Visit Reasons: Rhabdomyolysis Physical Therapy Inpatient Discharge Summary Date: 06/12/2022 Dates of service: 06/11/2022 through 06/12/2022 Referring Doctor:Taylor Berry NP PT Orders: PT CONSULT: evaluation Precautions: standard, fall risk Patient Profile/Admitting Diagnosis:? Patient is an 86-year-old female presenting to ED after a fall at home due to weakness and was unable to get up and remained on the floor x3 days.? She had the first fall in which she felt her right leg give way and fell onto her right side but was able to get back up by crawling to furniture and climbing back up using her upper extremity on the second fall she fell more onto her tailbone and had increased pain with her tailbone and was unable to get back up.? She is admitted with rhabdomyolysis, community-acquired pneumonia, impaired ambulatory and mobility status. PMHX: All Active Problems?(Updated 06/10/22 @ 18:59 by Kathrin Berry NP) Hypokalemia (Acute) Discharge planning issues (Acute) DVT prophylaxis (Acute) CAP (community acquired pneumonia) (Acute) Fall (Acute) Blunt head trauma (Acute) Blunt traumatic injury of popqtbl-gyxkmwxl-cwlztr region (Acute) Rhabdomyolysis (Acute) Impaired gait and mobility (Chronic ~2021) Assistive deviceThoracic scoliosis (Chronic) Chronic hip pain (Chronic) Essential hypertension (Chronic 01/24/13) Social History/Home Situation: Patient lives alone with 3 steps getting into home she typically maneuver sideways to navigate the stairs.? In her home she uses a four-wheel rolling walker, in the community she uses a 3 wheeled rolling walker as she is able to put this in her vehicle.? She does also own a standard rolling walker.? She currently takes baths and does not have hookup for a shower.? She does state that she has grab bars and she is normally able to get in and out of the bathtub independently.? She states that this was a good learning experience and will get a alert button so that she would not be on the floor for extended periods of time.? We also discussed her utilizing the rolling walker and not relying on furniture for ambulation although she states that she gets into the kitchen and works along the counter she also reaches up to the top shelf she has been advised to move things down to lower levels. Subjective:? Looking forward to going home today with home health PT Objective:? General Observation: Seated on bedside chair Mental Status: A&O x4 Pain: Denies Vital Signs: Within normal limits as closely monitored by nursing staff ROM: Right Upper Extremity: WFL Left Upper Extremity: WFL Right Lower Extremity: WFL Left Lower Extremity: WFL Strength: Right Upper Extremity: WFL Left Upper Extremity: WFL Right Lower Extremity: WFL Left Lower Extremity: WFL Sensation:?Intact to light touch both LE Bed Mobility/Transfers: Rolling independent Supine to sit independent Sit to supine independent Sit to stand independent Stand to sit independent Bed to chair independent Chair to bed independent Gait:? Tolerate level surface ambulation of 100 feet using front wheeled walker with standby assist with minimal verbal cueing provided to maintain a shorter step length to allow for better control of due to persistent weakness of left quads from rhabdomyolysis. Denies pain. Denies nausea. No lightheadedness no shortness of breath throughout. Balance:? Static Sitting: Normal Dynamic Sitting: Normal Static Standing: Fair when not holding onto walker good when holding onto walker Dynamic Standing: Unable to march in place without holding onto walker poor dynamic standing without support with support fair Assessment:? Patient demonstrates improved functional mobility level during this episode of care as seen under goal status below and current mobility level above. She will continue to require skilled PT services at home in order to achieve unmet goals listed below and to reduce fall risk at home. Has a good mastery of seated exercises. Goals: Goals X1 week 1. Supine-Sit independent MET 2. Sit-Supine independent MET 3. Sit-Stand independent MET 4. Stand-Sit independent MET 5. Bed-Chair independent MET 6. Chair-Bed independent MET 7. Gait ambulation with RW without need for VC for proper safety x100 feet NOT MET 8. Stairs with supervision NOT MET 9. Independent with home exercise program NOT MET 10. Balance improved to fair or good able to stand without holding onto RW x10 seconds, able to march in place without holding onto RW x3 steps NOT MET DISCHARGE RECOMMENDATIONS: [] ? Home with no services [] [x] ? Home with services PT/OT for safety and ADL's as well as household mobility [] ? Home with outpatient PT [] [] ? SNF for continued rehabilitation [] [] ? [facility] [] [] ? SNF versus LTC based on ability to participate and progress [] TREATMENT CODE/TIME:? 58839 x 28 minutes beginning at 9:49 AM. Thank you for the opportunity to participate in the care of this patient. Karon Luna PT, DPT, CLT [facility] [place], [place]
[2022-06-13 15:50] LABS: Streptococcus Pneumoniae Ag, U Negative (Negative)
== END 2022-06-12 13:45 | disposition home health service (06) ==
LOC: ER 17:20 → MS 18:54
PROVIDERS: Nurse Practitioner Family; Admitting Provider Internal Medicine; Emergency Provider Emergency Medicine; PCP Nurse Practitioner Adult Health; Visit Provider Internal Medicine
DX: M62.82 Rhabdomyolysis (principal); J18.9 Pneumonia, unspecified organism; S39.83XA Other specified injuries of pelvis, initial encounter; I48.91 Unspecified atrial fibrillation; S39.81XA Other specified injuries of abdomen, initial encounter; E87.6 Hypokalemia; I10 Essential (primary) hypertension; S09.8XXA Other specified injuries of head, initial encounter; S29.8XXA Other specified injuries of thorax, initial encounter; W19.XXXA Unspecified fall, initial encounter; Z20.822 Contact with and (suspected) exposure to COVID-19; R26.89 Other abnormalities of gait and mobility; M41.34 Thoracogenic scoliosis, thoracic region; G89.29 Other chronic pain; M54.50 Low back pain, unspecified; Z66 Do not resuscitate; I73.00 Raynaud's syndrome without gangrene; Z86.73 Personal history of transient ischemic attack (TIA), and cerebral infarction without residual deficits; M16.0 Bilateral primary osteoarthritis of hip; E78.5 Hyperlipidemia, unspecified; Z96.641 Presence of right artificial hip joint; Z96.651 Presence of right artificial knee joint; Z79.899 Other long term (current) drug therapy
CPT/HCPCS: 36410; 36415; 73552; 80048; 80053; 82550; 82805; 82962; 87040; 87081; 87449; 87637; 93005; 96360; 96365; 96366; 96367; 96368; 96372; 97110; 97112; 97161; 99285; J1650; 70450; 71046; 72125; 72131; 72170; 72192; 81003; 81015; 83735; 84443; 84484; 85025; 87899; 93010; 94667; 99222; 99232; 99239; G0378; J0456; J3480

== ENCOUNTER 2022-06-26 13:26 | Outpatient (REF) | payer MEDICARE, BC, SELFPAY ==
[2022-06-26 16:10] LABS: Anion Gap 6.3 mmol/L (3-11); BUN 22 mg/dL (7-18); CO2 30.7 mmol/L (21.0-32.0); CREATININE 0.9 mg/dL (0.55-1.02); Calcium 9.5 mg/dL (8.5-10.1); Chloride 103 mmol/L (98-107); Estimated GFR 63.04 (mL/min/1.73m2); Glucose 109 mg/dL (74-106); Magnesium 1.9 mg/dL (1.8-2.4); Potassium 3.7 mmol/L (3.5-5.1); Sodium 140 mmol/L (136-145)
== END 2022-06-26 13:27 | disposition home or self-care (01) ==
LOC: LBN 13:26
PROVIDERS: PCP Nurse Practitioner Adult Health; Visit Provider Nurse Practitioner
DX: E83.42 Hypomagnesemia (principal); E87.6 Hypokalemia
CPT/HCPCS: 80048; 83735

== ENCOUNTER 2022-07-05 14:18 | Outpatient (CLI) | payer MEDICARE, BC, SELFPAY ==
--- NOTE | 2022-07-05 14:15 | RT.EKG_ITS ---
APPROVED REPORT Exam: Resting ECG Reason for Exam: assess rhythm Patient Location: O HR:84 bpm ECG Measurements Heart Rate 84 AXIS ID 160 P 38 QRSd 84 QRS -8 QT 389 T 58 QTc 460 Conclusion Sinus arrhythmia...V-rate 65-107, variation>10% Abnormal R-wave progression, early transition...QRS area>0 in V2
== END 2022-07-05 14:19 | disposition home or self-care (01) ==
LOC: DI.KIM 14:18
PROVIDERS: PCP Nurse Practitioner Adult Health; Visit Provider Nurse Practitioner Adult Health
DX: R00.2 Palpitations (principal)
CPT/HCPCS: 93010

== ENCOUNTER 2023-07-18 12:45 | Outpatient (REF) | payer MEDICARE, BC, SELFPAY ==
[2023-07-18 16:23] LABS: BUN 19 mg/dL (7-18); CREATININE 0.7 mg/dL (0.55-1.02); Calcium 9.4 mg/dL (8.5-10.1); Chloride 105 mmol/L (98-107); Glucose 95 mg/dL (74-106); Potassium 3.6 mmol/L (3.5-5.1); Sodium 142 mmol/L (136-145)
== END 2023-07-18 12:46 | disposition home or self-care (01) ==
LOC: LBN 12:45
PROVIDERS: PCP Nurse Practitioner Adult Health; Visit Provider Nurse Practitioner Adult Health
DX: I10 Essential (primary) hypertension (principal)
CPT/HCPCS: 80048

== ENCOUNTER 2024-01-02 13:08 | Inpatient (IN) | payer MEDICARE, BC, SELFPAY ==
[2024-01-02] VITALS (111 sets, daily range): BP systolic 113–215; BP diastolic 13–157; PULSE 40–95; RESP 10–46; TEMP 36.4–37; O2SAT 84–100
--- NOTE | 2024-01-02 13:00 | RT.EKG_ITS ---
APPROVED REPORT Exam: Resting ECG Reason for Exam: dizziness Patient Location: E HR:78 bpm ECG Measurements Heart Rate 78 AXIS IN 160 P 103 QRSd 60 QRS 74 QT 387 T 88 QTc 444 Conclusion Sinus rhythm...normal P axis, V-rate 60- 99 Atrial premature complexes...SV complexes w/ short R-R intvls Consider left ventricular hypertrophy...(S V1+R V5/V6) >3.25mV
--- NOTE | 2024-01-02 13:30 | DI.RAD_ITS ---
Exam(s) XR CHEST 2V PA LATERAL EXAM: XR CHEST 2V PA LATERAL CLINICAL HISTORY: shortness of breath TECHNIQUE: 2D digital imaging was performed. Two views. COMPARISON: CR,XR XR CHEST 2V PA LATERAL from 06/10/2022 FINDINGS: Exam limited by severe scoliosis. HEART: Normal size. Aorta: Not dilated. PULMONARY VASCULATURE: Normal. MEDIASTINUM: Unremarkable. LUNGS: Upper lobe scarring. No visible infiltrate. PLEURAL SPACE: Biapical pleural thickening/scarring. No pleural effusion or pneumothorax. BONE:Severe scoliosis. SOFT TISSUES: Unremarkable. IMPRESSION: No acute abnormality. DATA REPOSITORY: RADIATION DOSE DELIVERED:
[2024-01-02 13:48] LABS: Abs Immature Grans 0.06 10^3/uL (0.0-0.06); Absolute Basophil Count 0.04 10^3/uL (0.0-0.2); Absolute Lymphocyte Count 0.95 10^3/uL (1.2-3.4); Absolute Monocyte Count 0.36 10^3/uL (0.1-0.8); Basophils % 0.8 %; Eosinophils % 1.9 %; HCT 39.1 % (36.0-46.0); HGB 13.5 g/dL (11.2-15.7); Immature Grans % 1.2 %; Lymphocytes % 18.2 %; MCH 32.5 pg (27.0-33.0); MCHC 34.5 % (32.0-36.0); MCV 94 fL (80-95); Monocytes % 6.9 %; Platelet Count 200 10^3/uL (130-400); RBC 4.15 10^6/uL (3.93-5.22); RDW 12.8 % (11.7-14.6); RDW-SD 44.2 fL; WBC 5.21 10^3/uL (4.4-10.8)
[2024-01-02 14:07] LABS: ALT 34 U/L (14-59); AST 22 U/L (15-37); Albumin 3.1 g/dL (3.4-5.0); Alkaline Phosphatase 104 U/L (46-116); Anion Gap 7.3 mmol/L (3-11); BUN 22 mg/dL (7-18); Bilirubin, Total 0.41 mg/dL (0.2-1.0); CO2 30.7 mmol/L (21.0-32.0); CREATININE 0.8 mg/dL (0.55-1.02); Calcium 9.4 mg/dL (8.5-10.1); Chloride 107 mmol/L (98-107); Estimated GFR 71.71 (mL/min/1.73m2); Glucose 97 mg/dL (74-106); Magnesium 2.1 mg/dL (1.8-2.4); Potassium 3.9 mmol/L (3.5-5.1); Sodium 145 mmol/L (136-145); TSH (W/Ref FT4) 0.57 uIU/mL (0.36-3.74); Troponin I 8 ng/L (<or=51)
[2024-01-02 14:41] LABS: Bilirubin Negative (Negative); Blood Negative (Negative); Clarity Sl Cloudy (Clear); Glucose Negative (Negative); Ketones Negative (Negative); Leukocyte Esterase Negative (Negative); Nitrite Negative (Negative)
[2024-01-02] MEDS: Labetalol 100 MG/20 ML VIAL 10 MG IVP (15:00)
--- NOTE | 2024-01-02 15:30 | ED.GENADUL_ITS ---
Discharge Plan Disposition Patient Disposition: Admit to [facility] Condition: Stable Discharge Details Clinical Impression: Hypertensive emergency Admit Date/Time: 01/02/24 19:12 Admit Provider: Mihir Spencer Attending Provider: Mihir Spencer Primary Care Provider: Claudia Pimentel ED Provider: Zak Gaines Discharge Data Discharge Date/Time-TO BE ENTERED AT DEPARTURE: 01/02/24 21:29 HPI General Date/Time Provider Initiated Documentation: 01/02/24 13:24 . HPI Narrative: This 88-year-old female with history of gait ataxia presents with report of lightheadedness that started during breakfast with worsening symptoms as the day progressed. She had blood pressure checked at the office and it was notably elevated. Patient states she does not currently have a history of hypertension and therefore is not on antihypertensives. She denies any chest pain or shortness of breath. She states she is lightheaded but does not endorse dizziness. She does not have a headache and nor has she had any falls or injuries. She denies any new medications or changes in diet. She denies any dyspnea with exertion. The only medication that she takes is Tylenol as needed for discomfort. She denies any vision or strength or sensation changes. Related Data Home Medications ?Medication ?Instructions ?Recorded ?Confirmed acetaminophen 500 mg oral powder See Rx Instructions .Route 12/05/23 01/02/24 packet (Tylenol Extra Strength) .COMPLEX #84 packets Previous Rx's ?Medication ?Instructions ?Recorded acetaminophen 500 mg oral powder See Rx Instructions .Route 12/05/23 packet (Tylenol Extra Strength) .COMPLEX #84 packets Allergies Allergy/AdvReac Type Severity Reaction Status Date / Time local anesthesia Allergy Unknown Other (See Uncoded 01/02/24 13:09 Comment) General Stated Complaint: Dizzy/Sync THEODORA: 3 Exam Narrative Exam Narrative: Alert and oriented 88-year-old female in no acute distress, no visible signs of trauma, pupils equal round reactive to light and accommodation, extraocular muscles intact, no carotid bruit, lungs clear to auscultation, cardiac rate rhythm regular,, no abdominal tenderness, GCS 15, alert and oriented x 4, cranial nerves II through XII intact, chronic ambulatory dysfunction, negative ynofrg-sbwz-cxzqol, negative heel vanessa, negative pronator drift, otherwise nonfocal neurological exam, answering questions appropriately, Course Vital Signs Vital signs: Vital Signs Temperature 36.9 C 01/02/24 13:08 Pulse 88 01/02/24 13:08 Respiratory Rate 18 01/02/24 13:08 Blood Pressure 190/101 H 01/02/24 13:08 Pulse Oximetry 98 01/02/24 13:08 Temperature 36.9 C 01/02/24 13:08 Pulse 72 01/02/24 15:16 Pulse 73 01/02/24 15:16 Respiratory Rate 17 01/02/24 15:16 Respiratory Effort Normal 01/02/24 13:25 Blood Pressure 186/94 H 01/02/24 15:16 Blood Pressure Mean 130 01/02/24 15:16 Pulse Oximetry 86 L 01/02/24 14:10 Pain Level 0 01/02/24 13:08 Lab/Test Results Lab/Test Results: Laboratory Tests Range/Units 01/02/24 01/02/24 01/02/24 13:24 13:37 14:18 WBC (4.4-10.8) 10^3/uL 5.21 RBC (3.93-5.22) 10^6/uL 4.15 Hgb (11.2-15.7) g/dL 13.5 Hct (36.0-46.0) % 39.1 MCV (80-95) fL 94 MCH (27.0-33.0) pg 32.5 MCHC (32.0-36.0) % 34.5 RDW (11.7-14.6) % 12.8 Plt Count (130-400) 10^3/uL 200 MPV (8.0-11.0) fL 10.0 Immature Gran % % 1.2 Neutrophils % % 71.0 Lymphocytes % % 18.2 Monocytes % % 6.9 Eosinophils % % 1.9 Basophils % % 0.8 Nucleated RBC % (0.0-0.3) % 0.0 Absolute Neutrophils (1.2-6.7) 10^3/uL 3.70 Absolute Lymphocytes (1.2-3.4) 10^3/uL 0.95 L Absolute Monocytes (0.1-0.8) 10^3/uL 0.36 Absolute Eosinophils (0.0-0.7) 10^3/uL 0.10 Absolute Basophils (0.0-0.2) 10^3/uL 0.04 Sodium (136-145) mmol/L 145 Cancelled Potassium (3.5-5.1) mmol/L 3.9 Cancelled Chloride (98-107) mmol/L 107 Cancelled Carbon Dioxide (21.0-32.0) mmol/L 30.7 Cancelled Anion Gap (3-11) mmol/L 7.3 Cancelled BUN (7-18) mg/dL 22 H Cancelled Creatinine (0.55-1.02) mg/dL 0.8 Cancelled Est GFR (CKD-EPI 2020) (mL/min/1.73m2) 71.71 Cancelled Glucose (74-106) mg/dL 97 Cancelled Calcium (8.5-10.1) mg/dL 9.4 Cancelled Magnesium (1.8-2.4) mg/dL 2.1 Total Bilirubin (0.2-1.0) mg/dL 0.41 Cancelled AST (15-37) U/L 22 Cancelled ALT (14-59) U/L 34 Cancelled Alkaline Phosphatase (46-116) U/L 104 Cancelled Troponin I (<or=51) ng/L 8 Total Protein (6.4-8.2) g/dL 7.0 Cancelled Albumin (3.4-5.0) g/dL 3.1 L Cancelled TSH (0.36-3.74) uIU/mL 0.57 Urine Color (Yellow) Yellow Urine Clarity (Clear) Sl Cloudy Urine pH (5-8) 7.0 Ur Specific [place] (1.005-1.025) 1.020 Urine Protein (Neg-Trace) mg/dL Negative Urine Ketones (Negative) mg/dL Negative Urine Blood (Negative) Negative Urine Nitrite (Negative) Negative Urine Bilirubin (Negative) Negative Urine Urobilinogen (Up to 0.2) mg/dL 1.0 H Ur Leukocyte Esterase (Negative) Negative Urine Glucose (Negative) mg/dL Negative Medical Decision Making 88-year-old female endorsing lightheadedness which started today. Blood pressure found to be elevated, persistently elevated over the course of half an hour on initial assessment. CT head was ordered secondary to lightheadedness with hypotension. Persistent hypertension, 200/120, 10 mg of IV labetalol secondary to symptomatic hypotension. Will initiate hydrochlorothiazide at this time, 25 mg. Will continue to monitor, pending CT scan. pt care will be transitioned to [facility] pending continued evaluation and monitoring. Quality:SDOH Health Related Social Needs: No Data to Display PFSH All Active Problems (Updated 01/02/24 @ 19:34 by ZOHRA Arredondo) Hypertensive emergency (Acute) Hypertension (Chronic) Impaired gait and mobility (Chronic ~2021) Assistive device Thoracic scoliosis (Chronic) Chronic hip pain (Chronic) Essential hypertension (Chronic 01/24/13) Medical History Impacted cerumen of both ears Hypomagnesemia (~06/2022) Hypokalemia (~06/2022) Rhabdomyolysis (~06/2022) Blunt traumatic injury of gvcdvsm-czwclekh-dmqqnf region (~06/2022) s/p fall Blunt head trauma (~06/2022) Fall (~06/2022) CAP (community acquired pneumonia) Patient has active physician orders for life-sustaining treatment (POLST) form (~06/30/21) DNR/DNI Basal cell carcinoma (BCC) 04/15/19-Dr. Young R/O BCC vs SCCA right nasal bridge. await biposy [place] [address] 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 No problems noted. 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
--- NOTE | 2024-01-02 15:53 | DI.CT_ITS ---
Exam(s) CT HEAD WO EXAM: CT HEAD WO CLINICAL HISTORY: light headed, hypertension. TECHNIQUE: Imaging Protocol: Axial computed tomography images with coronal and sagittal reformatted images were created and reviewed COMPARISON: CT CT HEAD CERVICAL SPINE WO from 06/10/2022 FINDINGS: There are no skull fractures. There is no fluid in the visualized paranasal sinuses. There is no evidence of intracranial hemorrhage, mass effect, or shift of midline structures. There are no extra-axial fluid collections. There is no blood within the ventricular system nor within the basal cisterns. The size of the lateral and 3rd ventricles again appears somewhat prominent relativ e to the size of the overlying cortical sulci. Same for the 4th ventricle. There is some symmetrical periventricular hypodensity consistent with chronic small vessel disease. IMPRESSION: No acute intracranial findings on this noninfused CT scan of the brain. Ventriculomegaly noted with size of ventricles somewhat out of proportion to the overlying cortical s ulci. Finding unchanged from 06/10/2022. Correlation with any clinical signs of normal pressure hyd rocephalus recommended. No evidence of intracranial hemorrhage, intra or extra-axial. Called by myself to ER provider 01/02/2024 at 3:56 p.m. RADIATION DOSE DELIVERED: 884.72mGy.cm Total DLP DATA REPOSITORY: All CT scans at this facility are submitted to the National Radiology Data Registry (NRDR) Dose Index Registry (DIR) with the [employer] (ACR). RADIATION OPTIMIZATION: All CT scans at this facility use at least one of these dose optimization te chniques: automated exposure control; mA and/or kV adjustment per patient size (includes targeted exa ms where dose is matched to clinical indication); or iterative reconstruction.
[2024-01-02] MEDS: hydroCHLOROthiazide 25 MG TAB PO (16:06)
--- NOTE | 2024-01-02 16:06 | W.EDPROG ---
Date of service: 01/02/24 Time of Service: 16:06 Medical Decision Making This dictation utilizes [id number] dictation software and may contain unedited grammatical errors. Patient seen in signout from Jigna Briggs PA-C, please see her complete note. Essentially this 88-year-old female presents with symptomatic hypertensive emergency-reporting increased dizziness, headaches, weakness, initially presenting at 190/101, patient takes no medications otherwise. Patients' medical history: Hypertension since 2012, migraine disorder, history of CVA, history of rhabdomyolysis. Family and social history: [ ]. Pertinent exam findings / vital signs include [ ]. Differential / pathologies of concern include hypertensive urgency, hypertensive emergency. Diagnostic studies of: -Reviewed prior labs, CBC is unremarkable, CMP shows a normal creatinine, magnesium within normal limits, troponin negative, TSH within normal limits, UA is benign. -CT head shows ventriculomegaly which may be consistent with the patient's history of blunt head trauma in June 2022 -EKG shows a sinus rhythm at 78 bpm with normal axis, normal intervals, no ST changes, some evidence of LVH Interventions of: -Patient had received 10 of labetalol around the time of signout but was not resolving, was given 15 mg IV labetalol as second dose as well as p.o. dose of hydrochlorothiazide. -1744- Patient received another 20mg IV labetalol as her BP was not responding at all to prior doses- she experienced a bradycardia to ~40 and felt flush, but her BP never responded to the medicine > approaching hospitalist team for admission ED Course/Assessment/Plan: 88-year-old female with no history of significant hypertension and past readings of normotension here at the hospital this past year presents with significant hypertension, dizziness, headaches and weakness with increased blood pressure [facility] at the [facility]. She failed to improve with efforts to reduce her hypertension here in the emergency department, remained with headache, had no signs of endorgan damage on laboratory workup, became bradycardic with labetalol interventions and I pursued admission, Dr. Spencer accepted for admission at 1845, plan to workup for possible pheochromocytoma or other secondary causes of new onset hypertension, noted LVH on EKG is new from priors a couple years ago. Disposition of Hypertensive Emergency. Patient verbalized understanding of the plan and return to ED criteria and engaged in shared decision making. Medical Records Medical records reviewed: Yes I reviewed the patient's medical records. Imaging Data Radiologic Study: Attestation: I personally reviewed and interpreted this imaging study as follows: Imaging: CT Scan Radiologist's impression: EXAM: CT HEAD WO CLINICAL HISTORY: light headed, hypertension. TECHNIQUE: Imaging Protocol: Axial computed tomography images with coronal and sagittal reformatted images were created and reviewed COMPARISON: CT CT HEAD CERVICAL SPINE WO from 06/10/2022 FINDINGS: There are no skull fractures. There is no fluid in the visualized paranasal sinuses. There is no evidence of intracranial hemorrhage, mass effect, or shift of midline structures. There are no extra-axial fluid collections. There is no blood within the ventricular system nor within the basal cisterns. The size of the lateral and 3rd ventricles again appears somewhat prominent relative to the size of the overlying cortical sulci. Same for the 4th ventricle. There is some symmetrical periventricular hypodensity consistent with chronic small vessel disease. IMPRESSION: No acute intracranial findings on this noninfused CT scan of the brain. Ventriculomegaly noted with size of ventricles somewhat out of proportion to the overlying cortical sulci. Finding unchanged from 06/10/2022. Correlation with any clinical signs of normal pressure hydrocephalus recommended. No evidence of intracranial hemorrhage, intra or extra-axial. Radiologic Study #2: Attestation: I personally reviewed and interpreted this imaging study as follows: Imaging: X-Ray Radiologist's impression: EXAM: XR CHEST 2V PA LATERAL CLINICAL HISTORY: shortness of breath TECHNIQUE: 2D digital imaging was performed. Two views. COMPARISON: CR,XR XR CHEST 2V PA LATERAL from 06/10/2022 FINDINGS: Exam limited by severe scoliosis. HEART: Normal size. Aorta: Not dilated. PULMONARY VASCULATURE: Normal. MEDIASTINUM: Unremarkable. LUNGS: Upper lobe scarring. No visible infiltrate. PLEURAL SPACE: Biapical pleural thickening/scarring. No pleural effusion or pneumothorax. BONE:Severe scoliosis. SOFT TISSUES: Unremarkable. IMPRESSION: No acute abnormality. Lab Data Lab results reviewed: Yes I reviewed the patient's lab results. Labs: Laboratory Tests Range/Units 01/02/24 01/02/24 01/02/24 13:24 13:37 14:18 WBC (4.4-10.8) 10^3/uL 5.21 RBC (3.93-5.22) 10^6/uL 4.15 Hgb (11.2-15.7) g/dL 13.5 Hct (36.0-46.0) % 39.1 MCV (80-95) fL 94 MCH (27.0-33.0) pg 32.5 MCHC (32.0-36.0) % 34.5 RDW (11.7-14.6) % 12.8 Plt Count (130-400) 10^3/uL 200 MPV (8.0-11.0) fL 10.0 Immature Gran % % 1.2 Neutrophils % % 71.0 Lymphocytes % % 18.2 Monocytes % % 6.9 Eosinophils % % 1.9 Basophils % % 0.8 Nucleated RBC % (0.0-0.3) % 0.0 Absolute Neutrophils (1.2-6.7) 10^3/uL 3.70 Absolute Lymphocytes (1.2-3.4) 10^3/uL 0.95 L Absolute Monocytes (0.1-0.8) 10^3/uL 0.36 Absolute Eosinophils (0.0-0.7) 10^3/uL 0.10 Absolute Basophils (0.0-0.2) 10^3/uL 0.04 Sodium (136-145) mmol/L 145 Cancelled Potassium (3.5-5.1) mmol/L 3.9 Cancelled Chloride (98-107) mmol/L 107 Cancelled Carbon Dioxide (21.0-32.0) mmol/L 30.7 Cancelled Anion Gap (3-11) mmol/L 7.3 Cancelled BUN (7-18) mg/dL 22 H Cancelled Creatinine (0.55-1.02) mg/dL 0.8 Cancelled Est GFR (CKD-EPI 2020) (mL/min/1.73m2) 71.71 Cancelled Glucose (74-106) mg/dL 97 Cancelled Calcium (8.5-10.1) mg/dL 9.4 Cancelled Magnesium (1.8-2.4) mg/dL 2.1 Total Bilirubin (0.2-1.0) mg/dL 0.41 Cancelled AST (15-37) U/L 22 Cancelled ALT (14-59) U/L 34 Cancelled Alkaline Phosphatase (46-116) U/L 104 Cancelled Troponin I (<or=51) ng/L 8 Total Protein (6.4-8.2) g/dL 7.0 Cancelled Albumin (3.4-5.0) g/dL 3.1 L Cancelled TSH (0.36-3.74) uIU/mL 0.57 Urine Color (Yellow) Yellow Urine Clarity (Clear) Sl Cloudy Urine pH (5-8) 7.0 [address] [place] (1.005-1.025) 1.020 Urine Protein (Neg-Trace) mg/dL Negative Urine Ketones (Negative) mg/dL Negative Urine Blood (Negative) Negative Urine Nitrite (Negative) Negative Urine Bilirubin (Negative) Negative Urine Urobilinogen (Up to 0.2) mg/dL 1.0 H Ur Leukocyte Esterase (Negative) Negative Urine Glucose (Negative) mg/dL Negative Quality:SDOH Health Related Social Needs: No Data to Display Sign Out Sign Out Data: Sign Out Comment: symptomatic hypertension, pending CT and improved sx/BP, received 25 of labetolol and 25 of hctz Last updated by Jigna Briggs PA at 01/02/24 15:42 Discharge Plan Disposition Patient Disposition: [facility]mit to [facility] Condition: Stable Discharge Details Chief Complaint: Dizzy/Sync Clinical Impression: Hypertensive emergency Primary Care Provider: Claudia Pimentel ED Provider: Zak Gaines Home Meds and New Rx's Prescriptions: No Action Tylenol Extra Strength 500 mg powder in packet See Rx Instructions .ROUTE .COMPLEX Qty: 84 11RF Dose Instruction: 1-PACKET BY MOUTH THREE TIMES A DAY Rx Instructions: 1-PACKET BY MOUTH THREE TIMES A DAY
[2024-01-02] MEDS: Labetalol 100 MG/20 ML VIAL 15 MG IVP (16:07)
[2024-01-02] MEDS: Labetalol 100 MG/20 ML VIAL 20 MG IVP (17:15)
[2024-01-02] MEDS: Acetaminophen 325 MG TAB 650 MG PO (17:15)
[2024-01-02] MEDS: Normal Saline 1,000 ML 1000 ML IV (17:36)
--- NOTE | 2024-01-02 18:53 | W.PM.HP.N ---
Date of service: 01/02/24 Time of Service: 18:53 Assessment and Plan Assessment and plan (1) Hypertension: Status: Chronic Assessment and plan: New onset hypertension without clinical signs of secondary etiology. Patient symptomatic with MENDEZ but no signs of end organ damage so I would rate this more as symptomatic HTN rather than hypertensive emergency. As to etiology, the presence of EKG changes c/w possible LVH suggests this may be more chronic than acute, though I have no readinsg to support that to this degree. As to possible secdondary causes, no s/s hyperaldo, Chattaroy's and normal renal function; still need to r/o pheo. I have requested ER begin Nicardipine and will check urinary VMA/metanephrines. History of Present Illness History of Present Illness Chief Complaint: headache Narrative: 88 year old female with no h/o hypertension, and generally eutensive during visits here albeit with some lability and occasional elevated systolic pressures. Here today with one day of MENDEZ and non-specific (and non-vertiginous) dizziness. here in ER findings of note for severe hypertension, 170-220/100-120. W/u of note for K 3.9, Creat 0.8; head CT negative, trop negative, EKG w/o ischemic changes but does show QRS complexes of 50-60 mm in leads V5-6, without strain pattern; however these changes are new compared to 2022, and even more to 2018. In ER patient has received HCTZ 25 and Labetalol 45 mg in divided doses, without appreciable effect on BP. I was asked to evaluate for admission. Patient on no meds except tylenol. Review of Systems Narrative: per HPI PFSH All Active Problems (Updated 01/02/24 @ 19:04 by Mihir Spencer MD) Hypertension (Chronic) Impaired gait and mobility (Chronic ~2021) Assistive device Thoracic scoliosis (Chronic) Chronic hip pain (Chronic) Essential hypertension (Chronic 01/24/13) Medical History Impacted cerumen of both ears Hypomagnesemia (~06/2022) Hypokalemia (~06/2022) Rhabdomyolysis (~06/2022) Blunt traumatic injury of nbfnqwp-ytxeawqy-pwrsvo region (~06/2022) s/p fall Blunt head trauma (~06/2022) Fall (~06/2022) CAP (community acquired pneumonia) Patient has active physician orders for life-sustaining treatment (POLST) form (~06/30/21) DNR/DNI Basal cell carcinoma (BCC) 04/15/19-Dr. Young R/O BCC vs SCCA right nasal bridge. await biposy result in [address] 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 No problems noted. 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 airport shuttle driver: No Working smoke detector in home: Yes Fire extinguisher in home: Yes Carbon monox detector in home: Yes Do you feel safe at home: Yes Do you feel safe in your relationship?: Yes Meds Allergies and Home Medications Allergies Allergy/AdvReac Type Severity Reaction Status Date / Time local anesthesia Allergy Unknown Other (See Uncoded 01/02/24 13:09 Comment) Home Medications ?Medication ?Instructions ?Recorded ?Confirmed ?Type acetaminophen 500 mg oral powder See Rx Instructions .Route 12/05/23 01/02/24 Rx packet (Tylenol Extra Strength) .COMPLEX #84 packets Exam Narrative Exam Narrative: (last recorded. During visit I performed manual with BP 200/117, Osler negative), 61, 36.9, 15, 97% RA. HEENT cataract OD, unable to visualize optic disc OS; neck supple; lungs clear; heart RRR; abdomen soft NT, no masses appreciated; extremities w/o edema; neuro Ox3, lucid, moves all 4s Results Labs 01/02/24 13:24 01/02/24 13:24 Labs: Laboratory Results - last 24 hr 01/02/24 01/02/24 01/02/24 13:24 13:37 14:18 WBC 5.21 RBC 4.15 Hgb 13.5 Hct 39.1 MCV 94 MCH 32.5 MCHC 34.5 RDW 12.8 Plt Count 200 MPV 10.0 Immature Gran % 1.2 Neutrophils % 71.0 Lymphocytes % 18.2 Monocytes % 6.9 Eosinophils % 1.9 Basophils % 0.8 Nucleated RBC % 0.0 Absolute Neutrophils 3.70 Absolute Lymphocytes 0.95 L Absolute Monocytes 0.36 Absolute Eosinophils 0.10 Absolute Basophils 0.04 Sodium 145 Cancelled Potassium 3.9 Cancelled Chloride 107 Cancelled Carbon Dioxide 30.7 Cancelled Anion Gap 7.3 Cancelled BUN 22 H Cancelled Creatinine 0.8 Cancelled Est GFR (CKD-EPI 2020) 71.71 Cancelled Glucose 97 Cancelled Calcium 9.4 Cancelled Magnesium 2.1 Total Bilirubin 0.41 Cancelled AST 22 Cancelled ALT 34 Cancelled Alkaline Phosphatase 104 Cancelled Troponin I 8 Total Protein 7.0 Cancelled Albumin 3.1 L Cancelled TSH 0.57 Urine Color Yellow Urine Clarity Sl Cloudy Urine pH 7.0 Ur Specific [place] 1.020 Urine Protein Negative Urine Ketones Negative Urine Blood Negative Urine Nitrite Negative Urine Bilirubin Negative Urine Urobilinogen 1.0 H Ur Leukocyte Esterase Negative Urine Glucose Negative Last Vital Signs Temp 36.9 C 01/02/24 13:08 Pulse 61 01/02/24 17:51 Resp 15 01/02/24 17:51 BP 212/99 H 01/02/24 17:51 Pulse Ox 97 01/02/24 17:51 Time Spent Time spent with Patient: 55-74 minutes Time was spent: preparing to see the patient(eg.review tests), obtaining and/or reviewing separately otained hiistory, ordering medications,tests, procedures, referring, communicating with other health healthcare facility administrator and indepentently interpreting results
--- NOTE | 2024-01-02 19:53 | W.PCEDHO ---
Registration Status: Primary Language: Preferred Language: ED Information & Data Chief Complaint Dizzy/Sync 01/02/24 15:33 Triage Note increased dizziness, head 01/02/24 13:08 aches, weakness, increased BP lately Medical / Surgical History (Last Reviewed 01/02/24 @ 19:01 by Mihir Spencer MD) Impacted cerumen of both ears Hypomagnesemia (~06/2022) Hypokalemia (~06/2022) Rhabdomyolysis (~06/2022) Blunt traumatic injury of ondolyc-swydqmtz-aixakp region (~06/2022) Blunt head trauma (~06/2022) Fall (~06/2022) CAP (community acquired pneumonia) Patient has active physician orders for life-sustaining treatment (POLST) form (~06/30/21) Basal cell carcinoma (BCC) Primary osteoarthritis of left hip Trochanteric bursitis, left hip (10/03/17) Raynaud's syndrome (06/20/11) Primary osteoarthritis of right hip (10/03/17) Other and unspecified hyperlipidemia (07/23/12) 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) Chronic low back pain (10/22/15) Cerebrovascular accident (CVA) (06/20/11) Acute pain of left hip (Last Reviewed 01/02/24 @ 19:01 by Mihir Spencer MD) Status post hip replacement (02/12/18) 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) Replacement of total knee joint Extraction of cataract Most Recent Vital Signs Temperature 36.9 C 01/02/24 13:08 Pulse 71 01/02/24 19:31 Pulse 87 01/02/24 19:40 Respiratory Rate 29 H 01/02/24 19:40 Respiratory Effort Normal 01/02/24 13:25 Blood Pressure 182/95 H 01/02/24 19:31 Blood Pressure Mean 124 01/02/24 19:31 Blood Pressure Position Supine 01/02/24 16:21 Pulse Oximetry 95 01/02/24 19:31 Pain Level 0 01/02/24 13:08 Allergies local anesthesia Allergy (Unknown, Uncoded 01/02/24 13:09) Other (See Comment) fainted allergy found in patients clinic notes from pcp Active Medications Generic Name Dose Route Start Last Admin Trade Name Blanco PRN Reason Stop Dose Admin Nicardipine HCl 25 mg/ 250 mls @ 0 mls/hr 01/02/24 19:00 01/02/24 19:27 Dextrose/Water IV 5 mls/hr INFUSION TOMI 5 mls/hr Administration Protocol Per Protocol Labetalol HCl 10 mg 01/02/24 15:00 01/02/24 15:00 Labetalol 100 Mg/20 Ml Vial IVP 10 mg NOW TOMI Administration Labetalol HCl 15 mg 01/02/24 15:45 01/02/24 16:07 Labetalol 100 Mg/20 Ml Vial IVP 15 mg NOW TOMI Administration Labetalol HCl 20 mg 01/02/24 17:00 01/02/24 17:15 Labetalol 100 Mg/20 Ml Vial IVP 20 mg NOW TOMI Administration IV IV Catheter Gauge [Left 20 Antecubital] Diet Orders Category Date Time Status Low Sodium [DIET] Nutrition 01/03/24 Breakfast Ordered Diagnostics 01/02/24 01/02/24 01/02/24 Range/Units 14:18 13:37 13:24 WBC 5.21 (4.4-10.8) 10^3/uL RBC 4.15 (3.93-5.22) 10^6/uL Hgb 13.5 (11.2-15.7) g/dL Hct 39.1 (36.0-46.0) % MCV 94 (80-95) fL MCH 32.5 (27.0-33.0) pg MCHC 34.5 (32.0-36.0) % RDW 12.8 (11.7-14.6) % Plt Count 200 (130-400) 10^3/uL MPV 10.0 (8.0-11.0) fL Immature Gran % 1.2 % Neutrophils % 71.0 % Lymphocytes % 18.2 % Monocytes % 6.9 % Eosinophils % 1.9 % Basophils % 0.8 % Nucleated RBC % 0.0 (0.0-0.3) % Absolute Neutrophils 3.70 (1.2-6.7) 10^3/uL Absolute Lymphocytes 0.95 L (1.2-3.4) 10^3/uL Absolute Monocytes 0.36 (0.1-0.8) 10^3/uL Absolute Eosinophils 0.10 (0.0-0.7) 10^3/uL Absolute Basophils 0.04 (0.0-0.2) 10^3/uL Sodium Cancelled 145 (136-145) mmol/L Potassium Cancelled 3.9 (3.5-5.1) mmol/L Chloride Cancelled 107 (98-107) mmol/L Carbon Dioxide Cancelled 30.7 (21.0-32.0) mmol/L Anion Gap Cancelled 7.3 (3-11) mmol/L BUN Cancelled 22 H (7-18) mg/dL Creatinine Cancelled 0.8 (0.55-1.02) mg/dL Est GFR (CKD-EPI 2020) Cancelled 71.71 (mL/min/1.73m2) Glucose Cancelled 97 (74-106) mg/dL Calcium Cancelled 9.4 (8.5-10.1) mg/dL Magnesium 2.1 (1.8-2.4) mg/dL Total Bilirubin Cancelled 0.41 (0.2-1.0) mg/dL AST Cancelled 22 (15-37) U/L ALT Cancelled 34 (14-59) U/L Alkaline Phosphatase Cancelled 104 (46-116) U/L Troponin I 8 (<or=51) ng/L Total Protein Cancelled 7.0 (6.4-8.2) g/dL Albumin Cancelled 3.1 L (3.4-5.0) g/dL TSH 0.57 (0.36-3.74) uIU/mL Urine Color Yellow (Yellow) Urine Clarity Sl Cloudy (Clear) Urine pH 7.0 (5-8) Ur Specific [place] 1.020 (1.005-1.025) Urine Protein Negative (Neg-Trace) mg/dL Urine Ketones Negative (Negative) mg/dL Urine Blood Negative (Negative) Urine Nitrite Negative (Negative) Urine Bilirubin Negative (Negative) Urine Urobilinogen 1.0 H (Up to 0.2) mg/dL Ur Leukocyte Esterase Negative (Negative) Urine Glucose Negative (Negative) mg/dL Intake and Output - 24 Hour Total 01/02/24 13:01 thru 01/02/24 13:08 Weight 58.513 kg Falls Risk Assessment History of Falls No History 01/02/24 13:25 Contributing Factors Unstable 01/02/24 13:25 Ambulatory Aids Uses ambulatory device + 01/02/24 13:25 Tubes/Lines None 01/02/24 13:25 Gait Evaluation W/any additional score 01/02/24 13:25 Cognition No cognitive impairment 01/02/24 13:25 Fall Total Score 53 01/02/24 13:25 Level of Risk High Risk 01/02/24 13:25 Problems (Last Reviewed 01/02/24 @ 19:01 by Mihir Spencer MD) Hypertension (Chronic) v v v v v v v v v Sending and/or Receiving Nurses: Please use comment section below to note any information pertinent to the patient hand-off not included above. Information / Comments: Report received from: Renetta BUENO
--- OUTSIDE RECORDS SUMMARY | 2024-01-02 20:09 | XMS_ITS | Clinical Summary ---
Author Organization [facility] Address [address] [place] [address] Care Team Providers Care Tube Cleaning Operator Name Role Phone Unknown, Provider Primary Care Provider [phone] Social History Tobacco Use Types Packs/Day Years Used Date Smoking Tobacco: Never Assessed Sex and Gender Information Value Date Recorded Sex Assigned at Not on file Gender Identity Not on file Sexual Orientation Not on file Plan of Treatment Health Maintenance Due Date Last Done Comments RSV Immunization ( o r 60+ Years) (1 - 1-dose 60+ series) 1997 Fall Risk Screening 2002 COVID-19 Vaccine (2022-24 season) 2022 Care Teams Tube Cleaning Operator Relationship Specialty Start Date End Date Unknown, Provider, PCP - General 01/20/15
--- OUTSIDE RECORDS SUMMARY | 2024-01-02 20:09 | XMS_ITS | Referral Summary ---
Author Organization [facility] Address [address] [place] [address] Care Team Providers Care Housing Development Specialist Name Role Phone Unknown, Provider Primary Care Provider Social History Tobacco Use Types Packs/Day Years Used Date Smoking Tobacco: Never Assessed Sex and Gender Information Value Date Recorded Sex Assigned at Not on file Gender Identity Not on file Sexual Orientation Not on file Plan of Treatment Not on file Care Teams Housing Development Specialist Relationship Specialty Start Date End Date Unknown, Provider, PCP - General 01/20/15
--- OUTSIDE RECORDS SUMMARY | 2024-01-02 20:09 | XMS_ITS | Encounter Summary ---
Author Organization [facility] Address [address] [place] [address] Care Team Providers Care Trimming Cutter Machine Name Role Phone Unknown, Provider Primary Care Provider Encounter Details Date Type Department Care Team (Late st Contact Info) Description 06/11/2022 Lab Requisition [facility] Pathology & Laboratory Medicine - [address] [address] Outr Resulting Lab, Provider Social History Tobacco Use Types Packs/Day Years Used Date Smoking Tobacco: Never Assessed Sex and Gender Information Value Date Recorded Sex Assigned at Not on file Gender Identity Not on file Sexual Orientation Not on file documented as of this encounter Plan of Treatment Not on file documented as of this encounter Procedures Procedure Name Priority Date/Time Associated Diagnosis Comments LEGIONELLA ANTIGEN DETECTION, URINE Routine 06/10/2022 22:05 EDT documented in this encounter Results * LEGIONELLA ANTIGEN DETECTION, URINE (06/10/2022 22:05 EDT) Legionella Antigen Detection Negative Negative 06/11/2022 17:39 EDT [facility] Urine URINE / Unknown 06/10/2022 2 2:05 EDT 06/11/2022 17:10 EDT Provider Outr Resulting Lab MICROBIOLOGY - GENERAL ORDERABLES [facility] [address] [place] [address] documented in this encounter Visit Diagnoses Not on filedocumented in this encounter Care Teams Trimming Cutter Machine Relationship Specialty Start Date End Date Unknown, ProviderMD PCP - General 01/20/15 documented as of this encounter
--- OUTSIDE RECORDS SUMMARY | 2024-01-02 20:09 | XMS_ITS | Encounter Summary ---
Author Organization [facility] Address [address] [place] [address] Care Team Providers Care Neck Skewer Name Role Phone Unavailable Primary Care Provider Unavailabl e Encounter Details Date Type Department Care Team (Late st Contact Info) Description 03/01/2006 Results Only [facility] conversion [address] [place] [address] Rozina Ojeda, BETTY [address] [facility] [address] [place] [address] Social History Tobacco Use Types Packs/Day Years Used Date Smoking Tobacco: Never Assessed Sex and Gender Information Value Date Recorded Sex Assigned at Not on file Gender Identity Not on file Sexual Orientation Not on file documented as of this encounter Plan of Treatment Not on file documented as of this encounter Procedures Procedure Name Priority Date/Time Associated Diagnosis Comments CYTOPATHOLOGY Routine 03/01/2006 0:00 EST documented in this encounter Results * CYTOPATHOLOGY (03/01/2006 0:00 EST) Pathology Report: CYTOPATHOLOGY REPORT Reports generated via electronic interface contain original data; however they are lacking the format of the original report. Caution should be taken when reading/interpreti ng unformatted reports. Name: ? NAZARIO VILLALBA ? Accession #: ? [id number] : ? 1935 (Age: 70) ??F ?Collect Date: ? 03/01/2006 Location: ? [facility] ? Receive Date: ? 03/02/2006 Provider: ?ROZINA OJEDA C++ QUANT DEVELOPER Copy to: ? Specimen/Source: ?ThinPrep Pap Test, Cervix, processed on [employer] ThinPrep Imaging System, with manual evaluation Last Menstrual Period: ? > 15 years ago Other: ? HPVA - HPV testing requested if ASC-US on the current ThinPrep Pap test. ? SPECIMEN ADEQUACY ? Satisfactory for Evaluation - assessment of transformation zone component not applicable ( e.g. atrophy, vaginal sample, hysterectomy) GENERAL CATEGORIZATION ? Negative for Intraepithelial Lesion or Malignancy ? Document reviewed and electronically signed by: ? Valery James, SCT(ASCP) ? Report Date: ??03/08/2006 13:14 End of Report DENISHA HOLLAND 03/01/2006 03/02/2006 Rozina Ojeda NP PATHOLOGY ORDERABLE S DENIS[facility] HOLLAND [address] [place] [address] documented in this encounter Visit Diagnoses Not on filedocumented in this encounter
[2024-01-02] MEDS: Ondansetron 4 MG/2 ML VIAL IVP (22:25)
[2024-01-02] MEDS: Melatonin 3 MG TAB 6 MG PO (22:25)
[2024-01-03] VITALS (108 sets, daily range): BP systolic 103–183; BP diastolic 59–107; PULSE 57–112; RESP 9–36; TEMP 36.7–37.3; O2SAT 88–96
[2024-01-03] MEDS: Acetaminophen 325 MG TAB 650 MG PO (04:22)
[2024-01-03] MEDS: Ondansetron 4 MG/2 ML VIAL IVP ×2 (04:28→09:11)
[2024-01-03] MEDS: ACETAMINOPHEN 1,000 MG/100 ML BAG 400 MG IVPB ×2 (09:09→21:27)
[2024-01-03] MEDS: Normal Saline Flush 10 ML SYR (09:10)
--- NOTE | 2024-01-03 09:45 | DI.MRI_ITS ---
Exam(s) MR BRAIN WO/W EXAM: MR BRAIN WO/W CLINICAL HISTORY: New onset severe MENDEZ with new onset severe HTN TECHNIQUE: Multiplanar multisequence MRI of the brain was performed. Both noninfused and contrast i nfused sequences were performed. IV Contrast injected was 11 cc Dotarem. COMPARISON: CT CT HEAD WO from 01/02/2024 FINDINGS: CEREBRAL PARENCHYMA: No evidence of intracranial hemorrhage, mass effect nor shift of midline structu re. No extraaxial fluid collections. Ventricular size is again noted be somewhat prominent, slightly ou t of proportion compared to the overlying cortical sulci. There is no significant focal signal abnormality in the cerebellar hemispheres. There is a [address] focus of signal abnormality in the posterior left side of the lower angel which does not exhibit e vidence of hemorrhage nor restricted diffusion. Probably non acute lacunar infarct. No signal abnor mality evident either midbrain and thalami. There is relatively symmetrical periventricular signal a bnormality consistent with chronic small vessel disease. No evidence of acute territorial infarct. No areas of restricted diffusion DWI: No areas of restricted diffusion to suggest acute ischemic event. SWI: No microhemorrhages evident. There are no ring enhancing lesions in the brain. There is no abnormal meningeal enhancement. PITUITARY GLAND: No mass nor parasellar abnormality. No obvious abnormality in the cavernous sinuses. FLOW VOIDS: The expected flow void are noted. No evidence of obvious aneurysm nor obvious vascular ma lformation. No obvious venous sinus thrombosis. PARANASAL SINUSES: The visualized paranasal sinuses appear unremarkable. ORBITS: Prior cataract surgery left eye. IMPRESSION: 1. No evidence of acute intracranial hemorrhage. 2. Periventricular signal abnormality consistent with chronic small vessel ischemic changes as well a s a 3 millimeter nonacute lacunar infarct in the lower left side of the angel. There are no ring enha ncing lesions in the brain and there is no abnormal meningeal enhancement. DATA REPOSITORY:
--- NOTE | 2024-01-03 09:45 | DI.US_ITS ---
APPROVED REPORT EXAM: Comprehensive 2D, Doppler, and color-flow Echocardiogram Patient Location: In-Patient Room/Bed: MGZ677 Associate Professor Computer Science: Jannette Hua RDCS (AE) Indications: Hypertensive emergency with previous CVA LMCA Echo Enhancing Agent Indication: Rule out Shunt Agent(s) / Amount(s) Used: Agitated Saline 30.0 cc Comments: Contrast study was performed with 3 IV injections of 10ccs of agitated normal saline, at re st, with cough and post valsalva maneuver. Negative contrast study for shunt flow. Other Information Technically limited study due to inability to position patient exam done bedside icu supine. Conclusion Normal left ventricular wall thickness and chamber size. Ejection fraction is 60%. Wall motion is n ormal Normal right ventricular size and function Both atria are normal in size Aortic valve is mildly sclerotic and trileaflet with trace regurgitation Mild systolic mitral valve prolapse, trace mitral regurgitation Estimated right ventricular systolic pressure is 31 mmHg Ascending aorta measures 3.91 cm Wall motion Left Ventricle The left ventricle is normal size. The left ventricular systolic function is normal. The left ventric ular ejection fraction is within the normal range. There is normal left ventricular wall thickness. T here is normal LV segmental wall motion. There is no ventricular septal defect visualized. LVEF is 60 %. Right Ventricle The right ventricle is normal size. The right ventricular systolic function is normal. Atria The left atrium size is normal. The right atrium size is normal. The interatrial septum is intact wit h no evidence for an atrial septal defect. Saline bubble contrast intravenous injection does not demo nstrate PFO. Aortic Valve The Aortic valve is mildly sclerotic. Aortic valve is trileaflet. There is no aortic valvular stenosi s. Trace aortic regurgitation. Mitral Valve No evidence of mitral valve stenosis. Trace mitral regurgitation. Mild mitral valve prolapse. Tricuspid Valve The tricuspid valve is normal in structure. There is no tricuspid valve stenosis. Mild tricuspid regu rgitation. Pulmonic Valve The pulmonary valve is normal in structure. There is no pulmonic valvular stenosis. There is no pulmo wilmer valvular regurgitation. Great Vessels The aortic root is normal in size. The ascending aorta is moderately dilated. Aortic arch is normal i n caliber. The IVC was not visualized. Technically limited imaging. Pericardium There is no pericardial effusion. 2D Dimensions IVSD d PLAX 0.87 cm F: 0.6-1.0 Ao Root d 3.27 cm F: 2.7 - 3.3 LVPW d PLAX 0.89 cm F: 0.6 - 1.0 Ao Asc Diam d 3.91 cm F: 2.3 - 3.1 LVID d PLAX 3.78 cm F: 3.8 - 5.2 LVDs 2.54 cm F: 2.2 - 3.5 LV EF Teichholz 62.1 % FS 32.85 % LV EDV (Teich) 61.1 mL LV ESV (Teich) 23.2 mL M-Mode TAPSE 2.27 cm (M/F) >1.7 Auto EF LV EDV A4C 75.3 mL LV EDV A2C 93.5 mL LV EDV BP 83.9 mL LV ESV A4C 30.4 mL LV ESV A2C 42.4 mL LV ESV BP 36.3 mL LVEF(%) A4C 59.6 % LVEF(%) A2C 54.7 % LVEF(%) BP 56.7 % LV SV A4C 44.8 ml LV SV A2C 51.1 ml LV SV BP 47.6 ml LV CO A4C 3.5 L/min LV CO A2C 3.9 L/min LV CO BP 3.7 L/min HR A4C 77.09 BPM HR A2C 76.45 BPM LV EDV Index (BP) LA Volume LA Length A4C 4.9 cm LA Length A2C 6.3 cm LA Area A4C s 14.05 cm2 LA Area A2C s 18.38 cm2 LA Vol A4C A-L 34.12 mL LA Vol A2C A-L 45.80 mL LA Vol Biplane A-L 44.6 mL LA Vol/BSA A4C A-L LA Vol/BSA A2C A-L LA Vol/BSA BP A-L 26.4 mL/m2 LA Vol A4C MOD 31.4 mL LA Vol A2C MOD 43.7 mL LA Vol BP MOD 41.6 mL RA Volume RA Area A4C 11.5 cm2 RA ESV A4C (A-L) 25.4mL RA Vol/BSA A4C A-L RA Length A4C 4.4 cm RA ESV A4C (MOD) 23.5mL LV Diastology MV E' medial 0.072 (>0.07 m/s) MV E Vmax 0.58 (0.4-1.3 m/s) MV E/E' MED 8.14 (<14) MV A Vmax 1.20 (0.4-1.3 m/s) MV E' lateral 0.092 (>0.1 m/s) E/A Ratio 0.5 MV E/E' LAT 6.33 (<14) MV E' Average 0.082 m/s MV E/E'(average) 7.12 Aortic Valve AoV Vmax 1.43 m/s LVOT Vmax 1.15 m/s AoV Peak Grad 8.2 mmHg LVOT Peak Grad 5.3 mmHg AoV Area (Vmax) 1.98 cm2 LVOT VTI 0.238 m AoV VTI 0.298 m LVOT Mean Grad 2.5 mmHg AoV Mean Mauricio. 1.03 m/s LVOT SV 58.44 mL AoV Mean Grad 4.7 mmHg LVOT Diam s 1.75 cm AoV Area (VTI) 1.96 cm2 AV Regurg Peak Gr. 8.21 mmHg Velocity Ratio 0.80 Mitral Valve MV DT 335 (160-240 msec) MV Vmax TIPS 0.99 m/s MV Mean Grad 1.6 (<2mmHg) MV VTI 0.264 m Pulmonary Valve PV Vmax 1.36 (0.5-1.5 m/s) RVOT Vmax 0.71 m/s PV Peak Grad 7.4 mmHg RVOT Peak Gr. 2.0 mmHg PV Mean Mauricio 0.89 m/s RVOT VTI 0.150 m PV Mean Grad 3.7 mmHg RVOT Mean Gr. 1.1 mmHg Tricuspid Valve TV S' 0.18 m/s TR Vmax 2.80 m/s TR Peak Grad 31.3 mmHg
[2024-01-03 10:59] LABS: HCT 41.9 % (36.0-46.0); HGB 14.7 g/dL (11.2-15.7); MCH 32.4 pg (27.0-33.0); MCHC 35.1 % (32.0-36.0); MCV 92 fL (80-95); MPV 9.5 fL (8.0-11.0); Platelet Count 206 10^3/uL (130-400); RBC 4.54 10^6/uL (3.93-5.22); RDW 12.6 % (11.7-14.6); WBC 5.79 10^3/uL (4.4-10.8)
[2024-01-03 11:01] LABS: C-Reactive Protein < 0.50 mg/dL (<or=0.5); ESR 17 mm/hr (0-30)
[2024-01-03 11:04] LABS: ALT 29 U/L (14-59); AST 24 U/L (15-37); Albumin 3.3 g/dL (3.4-5.0); Alkaline Phosphatase 107 U/L (46-116); Anion Gap 9.6 mmol/L (3-11); BUN 13 mg/dL (7-18); Bilirubin, Total 0.59 mg/dL (0.2-1.0); CO2 29.4 mmol/L (21.0-32.0); Chloride 104 mmol/L (98-107); Glucose 101 mg/dL (74-106); Potassium 3.3 mmol/L (3.5-5.1); Sodium 143 mmol/L (136-145); Total Protein 7.3 g/dL (6.4-8.2)
[2024-01-03 11:13] LABS: CREATININE 0.6 mg/dL (0.55-1.02); Calcium 9.8 mg/dL (8.5-10.1); Estimated GFR 87.36 (mL/min/1.73m2)
[2024-01-03] MEDS: Aspirin 81 MG CHEW CH (13:30)
[2024-01-03] MEDS: Normal Saline Flush 10 ML SYR IVP (14:22)
[2024-01-03] MEDS: Gadoterate meglumine 20 ML SYRINGE 11 ML IVP (14:23)
--- NOTE | 2024-01-03 17:45 | INITIAL_ITS ---
Date of service: 01/03/24 Time of Service: 11:30 Care Management Initial Assmt Initial Assessment Reason for Hospitalization: hypertension Functional Status/Living Situation Patient Presentation: Marilee was admitted yesterday with c/o MENDEZ for one day, and c/o dizziness. She was found to be very hypertensive 170-220/100-120. She was given oral meds and started on a nicardipine gtt and transferred to ICU. Marilee was lying in bed when CM met with her today. She easily sat upright in the bed to talk with CM. She was very pleasant, but did c/o being hungry. She had been c/o nausea, so hadn't eaten, but was looking to get some oatmeal. Marilee appears alert and oriented. She was asking questions about her care and what time her MRI was scheduled for. Marilee lives at the [facility] and is very pleased with that. Town of Residence: [facility] Resides with: Other (at the [facility]) Natural Supports: No family to speak of. Employment Status: Retired Instrumental Activities of Daily Living (ADLs): Independent Medications Medication Management: No Issues/Barriers identified Physical Functioning/Mobility Assistive Device: FWW Advance Directives Advance Directives: Do you have an Advance Directive: Y 01/17/13 09:05 AD On File at [facility]: Y 02/14/18 11:50 Date Asked 06/26/22 06/26/22 09:39 AD Date Reviewed 06/16/22 06/26/22 09:39 COLST On File at [facility] Yes 06/16/22 03:13 COLST Date Scanned 06/16/22 06/16/22 03:13 Code Status Resuscitation Status DNR/DNI Portal Pt does not currently have a portal and education provided: Yes Insurance Coverage/Financial Issues Insurance: Medicare with Blue Cross supplement Financial Issues: denies Care Team Visit Care Team Role Provider Type Claudia Pimentel NP Primary Care Provider NURSE PRACTITIONER ZOHRA Arredondo Emergency Provider PHYSICIANS MECH[employer]IC GENERAL OPERATIONAL TEST Mihir Spencer MD Admit Provider [facility] STAFF PHYSICIAN Attending Provider Discharge Potential Discharge Needs: PCP F/U Appt Anticipated Barriers to Discharge: None Identified Patient/Family Education Needs: Review discharge instructions, discuss Ask Me Three Transportation: [facility] Transportation: Private vechicle Plan: Anticipate that Marilee will be discharged home with no new services. She lives at the [facility] where they can monitor her blood pressure regularly and help manage any new medications. She will transport by [facility] private vehicle [facility] All Active Problems (Updated 01/02/24 @ 19:34 by ZOHRA Arredondo) Hypertensive emergency (Acute) Hypertension (Chronic) Impaired gait and mobility (Chronic ~2021) Assistive device Thoracic scoliosis (Chronic) Chronic hip pain (Chronic) Essential hypertension (Chronic 01/24/13) Medical History Impacted cerumen of both ears Hypomagnesemia (~06/2022) Hypokalemia (~06/2022) Rhabdomyolysis (~06/2022) Blunt traumatic injury of sfkmbvs-ymgzkxrt-mellav region (~06/2022) s/p fall Blunt head trauma (~06/2022) Fall (~06/2022) CAP (community acquired pneumonia) Patient has active physician orders for life-sustaining treatment (POLST) form (~06/30/21) DNR/DNI Basal cell carcinoma (BCC) 04/15/19-Dr. Young R/O BCC vs SCCA right nasal bridge. await biposy result [place] [address] 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 No problems noted. 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 shag truck driver: No Working smoke detector in home: Yes Fire extinguisher in home: Yes Carbon monox detector in home: Yes Do you feel safe at home: Yes Do you feel safe in your relationship?: Yes Readmission Within the Past 30 Days Yes or No: No SDOH(Care Management) Screening Will the Patient Participate in the Screening?: Yes Do you worry about having a steady place to live?: no Problems where you live: no known problems In the past 12 months, have you had to go without electric, gas, oil or water in your home?: no Have you or anyone in your house had to go without enough food to eat?: no Has lack of transportation kept you from medical appointments or from doing things needed for daily living?: no Has anyone in your support network made you feel unsafe for any reason?: no
--- NOTE | 2024-01-03 18:40 | W.PM.PROGNOT ---
Date of Service Date of service: 01/03/24 Time of Service: 18:43 Assessment and Plan Assessment and plan (1) Hypertensive emergency: Start date: 01/02/24 Status: Acute Assessment and plan: This is an 88-year lady who did not have long-term hypertension for treatment presented to the ED with hypertensive emergency and associated headache with nausea. She did have a previous left angel stroke without residual. She is now on chronic aspirin and was initiated on this upon admission. She had noticed cerebral hemorrhage with her hypertension. MRI of the brain revealed her old stroke but no acute problems and echocardiogram did not reveal any PFO. She is obtain a 24-hour urine for pheochromocytoma evaluation and we should consider renal artery studies if her hypertension persist and is not controllable. She will continue the nicardipine drip adjusting as needed and convert over to oral metoprolol as tolerated. She is a DNR/DNI. (2) Hypokalemia: Assessment and plan: Replete as needed and follow-up lab. Patient is not currently on diuretic. This may be nutritional but also could be associated with adrenal disease. (3) Headache: Start date: 01/02/24 Status: Acute Assessment and plan: Associated with hypertension and improved with treatment of hypertension. Imaging has been unrevealing. Qualifiers: Headache type: new daily persistent Qualified Code(s): G44.52 - New daily persistent headache (NDPH) (4) Cerebrovascular accident (CVA): Assessment and plan: Left angel lacunar infarct old without acute findings on MRI. Qualifiers: CVA mechanism: other Qualified Code(s): I63.89 - Other cerebral infarction Subjective Subjective Interval history since last seen: This is an 88-year-old lady who resides at the [facility] on minimal medications presenting to the ED with headache, hypertensive crisis and nausea today. She was on a nicardipine drip with good blood pressure control and weaned off but now has increasing systolic blood pressure. She also has a headache with some nausea. Imaging was unrevealing with CT of the head revealing no hemorrhage but only slightly enlarged ventricles. MRI of the brain was performed today as well as echocardiogram with no acute findings. She did have an old lacunar infarct in the lower left side of the angel. Patient does give a history of this previous stroke with left facial involvement and speech impairment which has resolved. The headache is improved and her blood pressure is controlled. The patient will be continued on nicardipine infusion and transition to oral metoprolol for blood pressure control. She should increase her activity as tolerated and continue evaluation for secondary hypertension with 24-hour urine collection and consider imaging to rule out renal artery stenosis. This can be reviewed with radiology if needed. She does plan to return to the [facility]. Patient is a DNR/DNI. Exam Narrative Exam Narrative: General: Patient appears appropriate for age, alert and oriented x 3 and in no acute distress at the time I saw the patient when she did not have a headache. HEENT: Normocephalic, eyes with pupils equal and reactive to light symmetrically, extraocular movement intact and sclera anicteric. Oropharynx with moist Koza and fair dentition. Neck: Supple without JVD. Back: Kyphotic without CVA tenderness. Lungs: Clear to auscultation percussion with no focalizing rales or rhonchi. Heart: Irregular rhythm with 3/6 systolic murmur. No gallops or rubs. Abdomen: Normal contour, soft nontender to palpation with no palpable hepatosplenomegaly. No appreciated abdominal bruit. Skin: Normal color, rough texture with some thinning and actinic changes over sun exposed areas. Warm and dry. Neuro: Cranial nerves II through XII grossly intact, no facial droop. No focalizing motor deficits or tremor. Psych: Normal affect and mood. No abnormal thought processes. Remote and recent memory intact. Objective Last Vital Signs Temp 36.7 C 01/03/24 16:21 Pulse 82 01/03/24 17:45 Resp 13 01/03/24 17:50 BP 120/69 01/03/24 17:45 Pulse Ox 93 01/03/24 17:50 Laboratory Results - last 24 hr 01/03/24 10:35 WBC 5.79 RBC 4.54 Hgb 14.7 Hct 41.9 MCV 92 MCH 32.4 MCHC 35.1 RDW 12.6 Plt Count 206 MPV 9.5 ESR 17 Sodium 143 Potassium 3.3 L Chloride 104 Carbon Dioxide 29.4 Anion Gap 9.6 BUN 13 Creatinine 0.6 Est GFR (CKD-EPI 2020) 87.36 Glucose 101 Calcium 9.8 Total Bilirubin 0.59 AST 24 ALT 29 Alkaline Phosphatase 107 C-Reactive Protein < 0.50 Total Protein 7.3 Albumin 3.3 L Echocardiogram: Conclusion Normal left ventricular wall thickness and chamber size. Ejection fraction is 60%. Wall motion is normal Normal right ventricular size and function Both atria are normal in size Aortic valve is mildly sclerotic and trileaflet with trace regurgitation Mild systolic mitral valve prolapse, trace mitral regurgitation Estimated right ventricular systolic pressure is 31 mmHg Ascending aorta measures 3.91 cm Negative bubble study. EXAM: MR BRAIN WO/W CLINICAL HISTORY: New onset severe MENDEZ with new onset severe HTN TECHNIQUE: Multiplanar multisequence MRI of the brain was performed. Both noninfused and contrast infused sequences were performed. IV Contrast injected was 11 cc Dotarem. COMPARISON: CT CT HEAD WO from 01/02/2024 FINDINGS: CEREBRAL PARENCHYMA: No evidence of intracranial hemorrhage, mass effect nor shift of midline structure. No extraaxial fluid collections. Ventricular size is again noted be somewhat prominent, slightly out of proportion compared to the overlying cortical sulci. There is no significant focal signal abnormality in the cerebellar hemispheres. There is a 3 millimeter focus of signal abnormality in the posterior left side of the lower angel which does not exhibit evidence of hemorrhage nor restricted diffusion. Probably non acute lacunar infarct. No signal abnormality evident either midbrain and thalami. There is relatively symmetrical periventricular signal abnormality consistent with chronic small vessel disease. No evidence of acute territorial infarct. No areas of restricted diffusion DWI: No areas of restricted diffusion to suggest acute ischemic event. SWI: No microhemorrhages evident. There are no ring enhancing lesions in the brain. There is no abnormal meningeal enhancement. PITUITARY GLAND: No mass nor parasellar abnormality. No obvious abnormality in the cavernous sinuses. FLOW VOIDS: The expected flow void are noted. No evidence of obvious aneurysm nor obvious vascular malformation. No obvious venous sinus thrombosis. PARANASAL SINUSES: The visualized paranasal sinuses appear unremarkable. ORBITS: Prior cataract surgery left eye. IMPRESSION: 1. No evidence of acute intracranial hemorrhage. 2. Periventricular signal abnormality consistent with chronic small vessel ischemic changes as well as a 3 millimeter nonacute lacunar infarct in the lower left side of the angel. There are no ring enhancing lesions in the brain and there is no abnormal meningeal enhancement. Time Spent with Patient Time Spent with Patient: 35-49 minutes Time was spent: preparing to see the patient(eg.review tests), obtaining and/or reviewing separately otained hiistory, ordering medications,tests, procedures, referring, communicating with other health family day carer, indepentently interpreting results, counseling the patient and care coordination
[2024-01-03] MEDS: Metoprolol 12.5 MG TAB PO ×2 (18:54→23:54)
[2024-01-03] MEDS: Enoxaparin 40 MG/0.4 ML SYR SC (19:56)
[2024-01-03] MEDS: Melatonin 3 MG TAB 6 MG PO (19:56)
[2024-01-03] MEDS: Prochlorperazine 10 MG/2 ML VIAL IVP (21:27)
--- NOTE | 2024-01-03 23:00 | NUR.NOTE ---
Nursing Note: 24HR urine sent to lab, lab states the test needed to be prepped with boric acid tablets prior to starting the urine collection, Dr. Khan made aware, new order given to restart exam, lab states will need to be started in am to verify how to accurately collect specimen
[2024-01-04] VITALS (36 sets, daily range): BP systolic 129–155; BP diastolic 74–97; PULSE 51–89; RESP 0–37; TEMP 36.4–36.9; O2SAT 92–97
[2024-01-04] MEDS: Metoprolol 12.5 MG TAB PO ×2 (05:02→12:05)
[2024-01-04 07:07] LABS: MCH 32.5 pg (27.0-33.0); MCHC 35.9 % (32.0-36.0); MCV 91 fL (80-95); Platelet Count 245 10^3/uL (130-400); RBC 4.31 10^6/uL (3.93-5.22); RDW 12.6 % (11.7-14.6); RDW-SD 41.5 fL; WBC 6.31 10^3/uL (4.4-10.8)
[2024-01-04 07:34] LABS: ALT 25 U/L (14-59); AST 20 U/L (15-37); Alkaline Phosphatase 96 U/L (46-116); Anion Gap 7.8 mmol/L (3-11); BUN 14 mg/dL (7-18); Bilirubin, Total 0.61 mg/dL (0.2-1.0); CO2 32.2 mmol/L (21.0-32.0); CREATININE 0.8 mg/dL (0.55-1.02); Calcium 9.6 mg/dL (8.5-10.1); Chloride 106 mmol/L (98-107); Estimated GFR 71.71 (mL/min/1.73m2); Glucose 86 mg/dL (74-106); Sodium 146 mmol/L (136-145); Total Protein 6.6 g/dL (6.4-8.2)
[2024-01-04 07:42] LABS: Potassium 2.9 mmol/L (3.5-5.1)
[2024-01-04] MEDS: Potassium Chloride 20 MEQ TABCR 40 MEQ PO (08:24)
[2024-01-04] MEDS: Aspirin 81 MG CHEW PO (08:24)
[2024-01-04] MEDS: Normal Saline Flush 10 ML SYR (08:25)
--- NOTE | 2024-01-04 09:26 | CMPROGNOTE_ITS ---
Date of service: 01/04/24 Time of Service: 09:26 Care Management Progress Note Progress Note Text Progress Note Text: Marilee was sitting up in bed when CM met with her. She was very pleasant in interaction and engaged easily with CM. Marilee talked about her recent move from her single family home in [place] to the [facility]. She stated it has been quite an adjustment. She was used to living alone in a quiet environment with a lot of room and now is in an assisted living facility. Marilee is originally from [place]. She moved to the when she was in her 20s for an employment opportunity in [facility] and has been here ever since. Marilee was admitted with symptomatic uncontrolled hypertension. She presented with a sever headache with SBP >200. She was placed in the ICU on a Nicardipine drip. Her systolic blood pressure is now in the 140s-150s and her headache has subsided. The Nicardioine drip has been discontinues and she is ready to move out of the ICU. Discharge Potential Discharge Needs: PCP F/U Appt Anticipated Barriers to Discharge: None Identified Patient/Family Education Needs: Review discharge instructions, discuss Ask Me Three Transportation: Private vehicle Plan: Anticipate Marilee will be discharged home to the [facility] where she resides. She will follow up with her PCP and plan of care and transport via [facility] coordinated by CM. CM will follow and continue to support discharge planning. SDOH(Care Management) Screening Will the Patient Participate in the Screening?: Yes Do you worry about having a steady place to live?: no Problems where you live: no known problems In the past 12 months, have you had to go without electric, gas, oil or water in your home?: no Have you or anyone in your house had to go without enough food to eat?: no Has lack of transportation kept you from medical appointments or from doing things needed for daily living?: no Has anyone in your support network made you feel unsafe for any reason?: no
--- NOTE | 2024-01-04 13:06 | PHA.REVIEW2 ---
Pharmacy Admission Review Admission Clinical Review Admission Pharmacy Review: Headache (Acute) Hypertensive emergency (Acute) local anesthesia Allergy (Unknown, Uncoded 01/02/24 13:09) Other (See Comment) Resuscitation Status DNR/DNI Height 5 ft 9 in Weight 57.1 kg Pharmacy Admission Review Renal Dosing Renal Dosing: BUN 14 mg/dL (7-18) 01/04/24 05:27 Creatinine 0.8 mg/dL (0.55-1.02) 01/04/24 05:27 Medications needing adjustments: Reviewed (CrCl 36.38 mL/min) List of meds needing interventions: Current medications are okay Anticoagulation Anticoagulation: Hgb 14.0 g/dL (11.2-15.7) 01/04/24 05:27 Hct 39.0 % (36.0-46.0) 01/04/24 05:27 Plt Count 245 10^3/uL (130-400) 01/04/24 05:27 Creatinine 0.8 mg/dL (0.55-1.02) 01/04/24 05:27 DVT Prophylaxis: Reviewed Medications: Enoxaparin (40mg daily) Relevant Labs Relevant Labs: ESR 17 mm/hr (0-30) 01/03/24 10:35 Sodium 146 mmol/L (136-145) H 01/04/24 05:27 Potassium 2.9 mmol/L (3.5-5.1) L* 01/04/24 05:27 Chloride 106 mmol/L (98-107) 01/04/24 05:27 Magnesium 2.0 mg/dL (1.8-2.4) 01/04/24 05:27 C-Reactive Protein < 0.50 mg/dL (<or=0.5) 01/03/24 10:35 Electrolytes, C-Reactive P, ESR: Reviewed (K 2.9 - 40 mEq PO given this AM and repeat lab pending, Na 146) Cardiac Review Cardiac Review: Troponin I 8 ng/L (<or=51) 01/02/24 13:24 Blood Pressure 145/78 1202 Blood Pressure 139/75 1001 Blood Pressure 146/97 0828 Blood Pressure 155/81 0601 Blood Pressure 150/93 0411 Blood Pressure 155/93 0410 Blood Pressure 129/74 0201 BP, HR, EF%: Reviewed (HR WNL) List meds needing interventions: Has order for metoprolol XL 50mg daily and IR 12.5mg q6h PRN. No doses of PRN metoprolol have been given so far. QTc Review QTc: Reviewed (444 from 01/02/24) IV to PO Switch IV Medications: Reviewed (prochlorperazine) Home Meds Home Med List reviewed: Reviewed Current Meds Current Medication Order Review: Intervened Comments: Patient had order for nicardipine that was paused last night. Asked provider in morning meeting if this order was still needed. Provider discontinued it. Added IV admission order set
[2024-01-04] MEDS: Metoprolol CR 50 MG TABCR PO (13:54)
--- NOTE | 2024-01-04 16:23 | CHAPLAIN ---
I had a brief visit with Marilee this morning. She had a friend visiting. I explained my role and offered support. Marilee told me that she lived in [place] for many years and now lives at the [facility]. I went back to visit this afternoon, but she was sleeping. I'll try again later.
[2024-01-04 16:56] LABS: Potassium 3.7 mmol/L (3.5-5.1)
--- NOTE | 2024-01-04 18:27 | PGE_ITS ---
Date of Service Date of service: 01/04/24 Time of Service: 18:27 Assessment and Plan Assessment and plan (1) Hypertensive emergency: Status: Acute Assessment and plan: Now off the nicardipine drip. She has been on metoprolol 12.5 mg p.o. every 6 hours. Will consolidate this to Toprol-XL 50 mg daily starting today. Will transfer out of ICU to the [facility] floor. Workup for possible renal artery stenosis or pheochromocytoma cysts is pending. Patient is quite clear she would not want interventional procedures if indeed there were extensive findings such as an adrenal tumor. She is DNR/DNI and she makes clear that she would be okay if her life ended tomorrow. Will DC further renal studies that have not already been set in motion. (2) Hypokalemia: Assessment and plan: Potassium 2.9 this morning. She got 40 mEq of potassium p.o. Recheck 3.7 this afternoon. Will recheck again in the a.m. (3) Headache: Status: Acute Assessment and plan: Headache likely related to severe [id number] blood pressure. This has improved with getting her blood pressure under better control. Qualifiers: Headache type: new daily persistent Qualified Code(s): G44.52 - New daily persistent headache (NDPH) Subjective Subjective Interval history since last seen: Malignant hypertension -patient's headache has improved. She is overall feeling much better. She is taking p.o. well. She is off the nicardipine drip. Exam Narrative Exam Narrative: Appears in no apparent distress. She remembers me from an encounter years ago. Her breathing is not at all labored. Her heart sounds are regular. Blood pressure at the time of my exam 155/81 Objective Last Vital Signs Temp 36.4 C L 01/04/24 08:28 Pulse 62 01/04/24 16:01 Resp 17 01/04/24 16:01 BP 149/94 H 01/04/24 16:01 Pulse Ox 96 01/04/24 10:01 Laboratory Results - last 24 hr 01/03/24 01/04/24 01/04/24 23:00 05:27 16:19 WBC 6.31 RBC 4.31 Hgb 14.0 Hct 39.0 MCV 91 MCH 32.5 MCHC 35.9 RDW 12.6 Plt Count 245 MPV 10.0 Sodium 146 H Potassium 2.9 L* 3.7 Chloride 106 Carbon Dioxide 32.2 H Anion Gap 7.8 BUN 14 Creatinine 0.8 Est GFR (CKD-EPI 2020) 71.71 Glucose 86 Calcium 9.6 Magnesium 2.0 Total Bilirubin 0.61 AST 20 ALT 25 Alkaline Phosphatase 96 Total Protein 6.6 Albumin 3.0 L Urine Epinephrine Cancelled Urine Norepinephrine Cancelled U Metanephrines 24 Hr Cancelled U Normetanephrine 24h Cancelled U Tot Metanephrine 24h Cancelled U Metanephrine Comment Cancelled Urine Dopamine Cancelled Reviewed Pertinent PMH: Yes Time Spent with Patient Time Spent with Patient: 25-34 minutes Time was spent: preparing to see the patient(eg.review tests), obtaining and/or reviewing separately otained hiistory, ordering medications,tests, procedures, referring, communicating with other health career development specialist, indepentently interpreting results, counseling the patient and care coordination
[2024-01-04] MEDS: Enoxaparin 40 MG/0.4 ML SYR SC (20:20)
[2024-01-04] MEDS: Melatonin 3 MG TAB 6 MG PO (20:20)
[2024-01-05] VITALS (11 sets, daily range): BP systolic 149–174; BP diastolic 82–97; PULSE 57–72; RESP 16–33; TEMP 36.3; O2SAT 96
[2024-01-05 06:40] LABS: HCT 38.8 % (36.0-46.0); HGB 13.6 g/dL (11.2-15.7); MCH 32.4 pg (27.0-33.0); MCHC 35.1 % (32.0-36.0); MCV 92 fL (80-95); MPV 9.6 fL (8.0-11.0); Platelet Count 210 10^3/uL (130-400); RDW 12.9 % (11.7-14.6); RDW-SD 42.7 fL; WBC 5.67 10^3/uL (4.4-10.8)
[2024-01-05 06:53] LABS: Anion Gap 8.5 mmol/L (3-11); BUN 20 mg/dL (7-18); CO2 29.5 mmol/L (21.0-32.0); CREATININE 0.7 mg/dL (0.55-1.02); Calcium 9.3 mg/dL (8.5-10.1); Chloride 108 mmol/L (98-107); Estimated GFR 84.17 (mL/min/1.73m2); Glucose 90 mg/dL (74-106); Potassium 3.6 mmol/L (3.5-5.1); Sodium 146 mmol/L (136-145)
[2024-01-05] MEDS: Metoprolol CR 50 MG TABCR PO (07:41)
[2024-01-05] MEDS: Aspirin 81 MG CHEW PO (07:41)
--- NOTE | 2024-01-05 15:29 | PDOC.CMDIS ---
Date of service: 01/05/24 Time of Service: 11:00 LACE Index Scoring Tool Questions: Length of Stay (in days): 3 Was the patient admitted via the E.D.?: Yes E.D. Visits: 1 Answers: Total Score: 7 Risk of Readmission: Low Risk Care Management Discharge Plan Reason for Hospitalization: hypertension - new onset Discharge Plan: Marilee was discharged today with new orders for Toprol XL. The prescription was faxed to [facility] at their request by CM. Marilee will f/u with the facility PCP and will continue per her plan of care. She was transported home via [facility] private vehicle. Patient/Family Education Needs: Review of discharge instructions, activity, limitations and f/u plan. Discuss Ask me 3 SDOH Health Related Social Needs: No Data to Display
--- NOTE | 2024-01-05 16:46 | DSE_ITS ---
Date of service: 01/05/24 Time of Service: 13:56 DS: Diagnosis Discharge Diagnosis (1) Hypertensive emergency: Status: Acute Asessment and Plan: Patient presented with 1 day of a headache and nonspecific dizziness. In the ER was found to have blood pressures of 1 70-2 20 systolic with pressures of 100-1 20 diastolic. She received HCTZ 25 mg and labetalol 45 mg in the ED. She was admitted to the ICU for a nicardipine drip. She was transitioned to p.o. metoprolol and ultimately ended up on Toprol-XL 50 mg daily with improvement in blood pressures. (2) Hypokalemia: Asessment and Plan: Potassium of 3.9 on admission she received potassium replacement. Potassium 3.6 at the time of discharge. (3) Headache: Status: Acute Asessment and Plan: Headache thought to be related to hypertensive emergency. It resolved with improvements in her blood pressure. Discharge Plan Disposition Patient Disposition: Home Condition: Improving Discharge Details Reason For Visit: Symptomatic new onset hypertension Admit Date/Time: 01/02/24 19:12 Admit Provider: Mihir Spencer Attending Provider: Mihir Spencer Primary Care Provider: Claudia Pimentel Hospital Course Hospital Course: Patient was admitted from the ER with hypertensive emergency. She was brought to the ICU and placed on a nicardipine drip which brought her blood pressures down nicely. After 24 hours she was transitioned off the drip and started on metoprolol tartrate in divided doses. By hospital day 3 she was transition to metoprolol succinate 50 mg daily and had improvement in her overall blood pressures though still not at goal. Her symptoms had improved. She is discharged on Toprol-XL 50 mg daily with plan to follow-up with her PCP for further titration. Home Meds and New Rx's Prescriptions: New metoprolol succinate 50 mg Tablet Extended Release 24 Hr 50 mg PO DAILY Qty: 30 3RF Continued Tylenol Extra Strength 500 mg powder in packet See Rx Instructions .ROUTE .COMPLEX Qty: 84 11RF Dose Instruction: 1-PACKET BY MOUTH THREE TIMES A DAY Rx Instructions: 1-PACKET BY MOUTH THREE TIMES A DAY Discharge Instructions Instructions: High blood pressure emergencies Referrals: Claudia Pimentel, [facility] [Primary Care Provider] - (New onset malignant HTN, follow up 10-14 days from 01/05/2024 discharge from [facility]) Activity:: Activity as Tolerated Equipment/Supplies:: No Equipment Needed Diet:: Low Sodium Discharge Orders Discharge Orders: Discharge Order (Routine); Ordered 01/05/24 Ordered By: Larry Mcarthur Discharge Data Discharge Date/Time-TO BE ENTERED AT DEPARTURE: 01/05/24 14:30 DS: Summary Time Spent with Patient providing and/or coordinating discharge services: Greater than 30 minutes Status at Discharge Functional status at discharge: uses cane/walker Overall status at discharge: patient is progressing back to baseline Mental Status: mental status grossly normal Speech and Movement: speech and movement normal Mood: congruent mood Affect: dysphoric affect (Seemed somewhat depressed about her overall state of health) Quality:SDOH Health Related Social Needs: No Data to Display Exam Narrative Exam Narrative: On exam she was alert and coherent. She was sitting up and talk to me freely in a coherent manner. She is explaining one of the book she is reading. Her speech was clear. She had nonlabored breathing. Lungs were clear heart sounds were strong and regular. She had no lower extremity edema. Psych Mental Status: mental status grossly normal Speech and Movement: speech and movement normal Mood: congruent mood Affect: dysphoric affect (Seemed somewhat depressed about her overall state of health) DS: Data Vitals/I&O Vitals and I&O: Vital Signs Temperature 36.3 C L 01/05/24 07:52 Temperature Source Temporal Artery Scan 01/05/24 07:52 Pulse 63 01/05/24 12:37 Pulse 70 01/05/24 12:37 Respiratory Rate 20 01/05/24 12:37 Respiratory Effort Normal 01/02/24 21:23 Blood Pressure 171/88 H 01/05/24 12:37 Blood Pressure Mean 114 01/05/24 12:37 Blood Pressure Position Supine 01/02/24 21:23 Pulse Oximetry 96 01/05/24 07:52 Oxygen Delivery Method Room Air 01/05/24 07:52 Oxygen Flow Rate 0 01/05/24 07:52 Pain Level 0 01/05/24 07:52 Comment BP taken automatically while patient dry-heaving/vomiting. 01/03/24 13:16 Intake & Output 01/04/24 01/05/24 01/05/24 23:59 11:59 23:59 Intake Total 240 / 610 Output Total 350 / 550 450 / 450 Balance -110 / 60 -450 / -450 Intake: Oral 240 / 600 Output: Urine 350 / 550 450 / 450 Other: Urine Color Yellow Dark Mary Urine Appearance Clear Clear Urine Odor Strong Comment Urine leaked around purewick catheter. Amount immeasurable. Large unmeasured void in addition to charted amount. Data Completed and Pending Pending studies at discharge: A 24-hour urine was collected during her stay. There will be metanephrines and protein readings available when those are processed. Labs on day of discharge: Labs from last 24 hours 01/05/24 01/05/24 01/04/24 13:45 06:20 16:19 WBC 5.67 RBC 4.20 Hgb 13.6 Hct 38.8 MCV 92 MCH 32.4 MCHC 35.1 RDW 12.9 Plt Count 210 MPV 9.6 Sodium 146 H Potassium 3.6 3.7 Chloride 108 H Carbon Dioxide 29.5 Anion Gap 8.5 BUN 20 H Creatinine 0.7 Est GFR (CKD-EPI 2020) 84.17 Glucose 90 Calcium 9.3 Ur Collection Duration Pending Urine Total Volume Pending Urine Epinephrine Pending Urine Norepinephrine Pending Urine Dopamine Pending PFSH All Active Problems (Updated 01/05/24 @ 12:44 by Larry Mcarthur MD) Headache (Acute) Hypertensive emergency (Acute) Hypertension (Chronic) Impaired gait and mobility (Chronic ~2021) Assistive device Thoracic scoliosis (Chronic) Chronic hip pain (Chronic) Essential hypertension (Chronic 01/24/13) Medical History Impacted cerumen of both ears Hypomagnesemia (~06/2022) Hypokalemia (~06/2022) Rhabdomyolysis (~06/2022) Blunt traumatic injury of uuctqeh-exhnjncn-prfqva region (~06/2022) s/p fall Blunt head trauma (~06/2022) Fall (~06/2022) CAP (community acquired pneumonia) Patient has active physician orders for life-sustaining treatment (POLST) form (~06/30/21) DNR/DNI Basal cell carcinoma (BCC) 04/15/19-Dr. Young R/O BCC vs SCCA right nasal bridge. await biposy result in [address] 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 No problems noted. 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 armor reconnaissance vehicle driver: No Working smoke detector in home: Yes Fire extinguisher in home: Yes Carbon monox detector in home: Yes Do you feel safe at home: Yes Do you feel safe in your relationship?: Yes Time Spent with Patient Time Spent with Patient: 45-69 minutes Time was spent: preparing to see the patient(eg.review tests), obtaining and/or reviewing separately otained hiistory, ordering medications,tests, procedures, r eferring, communicating with other health physician primary care sports medicine, indepentently interpreting results, counseling the patient and care coordination
[2024-01-09 14:56] LABS: Urine Volume 1000 mL
[2024-01-11 17:28] LABS: Metanephrines, U 95 mcg/24 h; Normetanephrine, U 212 mcg/24 h; Total Metanephrines, U 307 mcg/24 h; Urine Volume 1500 mL
== END 2024-01-05 14:30 | disposition home or self-care (01) | DRG 305 ==
LOC: ER 19:34 → ICU 20:08
PROVIDERS: Family Medicine; Physician Assistant; Admitting Provider General Practice; Emergency Provider Physician Assistant; PCP Nurse Practitioner Adult Health; Visit Provider General Practice
DX: I16.1 Hypertensive emergency (principal); I10 Essential (primary) hypertension; E87.6 Hypokalemia; R42 Dizziness and giddiness; Z74.09 Other reduced mobility; G89.29 Other chronic pain; M41.34 Thoracogenic scoliosis, thoracic region; E78.9 Disorder of lipoprotein metabolism, unspecified; Z66 Do not resuscitate; I73.00 Raynaud's syndrome without gangrene; M54.50 Low back pain, unspecified; Z86.73 Personal history of transient ischemic attack (TIA), and cerebral infarction without residual deficits; Z96.641 Presence of right artificial hip joint; Z96.651 Presence of right artificial knee joint; G44.52 New daily persistent headache (NDPH)
CPT/HCPCS: 00123; 36415; 70553; 80048; 80053; 85027; 85652; 93005; 93306; 96361; 96365; 96366; 96375; 96376; 99285; J1650; 70450; 71046; 81003; 81050; 82384; 83735; 83835; 84132; 84443; 84484; 85025; 86140; 93010; 99222; 99231; 99232; 99239; J0131; J0780; J1920; J2404; J2405; J3490